=== PATIENT | female | born 1955 ===

== ENCOUNTER 2018-05-18 14:58 | Inpatient (IN) | payer MEDICAID, OTHER ==
--- NOTE | 2018-05-18 15:10 | ED PDOC ---
Arrival/HPI - General Time Seen by Provider: 05/18/18 15:03 Historian: Patient - History of Present Illness Time/Duration: 1-3 hours Symptom Onset: Sudden Symptom Course: Unchanged, Improving Activities at Onset: Rest, Light Context: Home Allergies/Home Meds Allergies/Adverse Reactions: Allergies No Known Allergies Allergy (Verified 05/18/18 15:04)
--- NOTE | 2018-05-18 15:12 | ED PDOC ---
Arrival/HPI - General Chief Complaint: Weakness/Neurological Deficit Time Seen by Provider: 05/18/18 15:03 Historian: Patient - Critical Care Critical Care Minutes: 60 minutes - History of Present Illness Narrative History of Present Illness (Text): 05/18/18 15:11 A 63 year old female, with a past medical history of varicose veins, presents to the emergency department for further evaluation of possible stroke. Patient was seen immediately upon arrival. She presents to the emergency department complaining of inability to move her left leg and arm. She notes that she felt a headache at around 1 PM that she describes as a current running thought the front of her head. She states that once she felt the headache she lost movement in the left arm and leg. The patient states that she tried to stand up after the headache, but fell down. Currently, the patient denies headache. Patient is a tourist from [facility]. The patient denies fevers, chills, dizziness, abdominal pain, nausea, vomiting, diarrhea, back pain, neck pain, chest pain, shortness of breath, dyspnea on exertion, cough or any other complaint. Time/Duration: 1-3 hours Symptom Onset: Sudden Symptom Course: Unchanged Activities at Onset: Rest, Light Context: Home Past Medical History - Provider Review Nursing Documentation Reviewed: Yes - Reproductive Menopause: Yes - Psychiatric Hx Substance Use: No - Surgical History Other/Comment: R foot surgery - Anesthesia Hx Anesthesia Reactions: No Hx Malignant Hyperthermia: No Family/Social History - Physician Review Nursing Documentation Reviewed: Yes Family/Social History: No Known Family HX Smoking Status: Never Smoked Hx Alcohol Use: No Hx Substance Use: No Allergies/Home Meds Allergies/Adverse Reactions: Allergies No Known Allergies Allergy (Verified 05/18/18 15:04) Home Medications: Home Meds Medication Instructions Recorded Confirmed RX: No Known Home Med 05/18/18 05/18/18 Review of Systems - Physician Review All systems were reviewed & negative as marked: Yes - Review of Systems Constitutional: absent: Fevers Respiratory: absent: SOB, Cough Cardiovascular: absent: Chest Pain, GIL Gastrointestinal: absent: Abdominal Pain, Diarrhea, Nausea, Vomiting Musculoskeletal: Other (Loss of movement in left arm and leg). absent: Back Pain, Neck Pain Neurological: Headache. absent: Dizziness Physical Exam - Physical Exam Narrative Physical Exam (Text): 05/18/18 15:09 Gen: VS reviewed, alert, well developed, well nourished, nontoxic, mild distress (every patient is mild distress unless otherwise stated) ENT: normal pharynx Eye: EOMI, PERRL Neck: no JVD, supple, no adenopathy CV: regular rate, regular rhythm, no rubs,no murmur, no gallops, S1, S2, pulses equal and strong Pulm: no distress, clear to auscultation, no wheeze, no rhonchi, breath sounds equal, no rales Abd: soft, nontender, no guarding, no rebound, no rigidity, normal bowel sounds Ext: no edema Skin: good color, no rash, no cyanosis Psych: responds appropriately to questions, normal affect Neuro: oriented x3, CN2-12 intact grossly, complete paraylsis of the left arm and leg, diminished sensation of the left arm and leg Vital Signs Reviewed: Yes Appearance: Positive for: Well-Appearing, Non-Toxic, Comfortable Pain Distress: None Mental Status: Positive for: Alert and Oriented X 3 Finger Stick Blood Glucose: 115 Medical Decision Making ED Course and Treatment: 05/18/18 15:19 Impression: A 63 year old female presents to the emergency department with a complaint of loss of movement of left arm and leg at around 1 pm today. Plan: -- CTA Head/ Neck -- Head CT -- EKG -- Chest X-Ray -- Labs -- IV Fluids -- Reassess and disposition Prior Visits: Notes and results from previous visits were reviewed. Progress Notes: 05/18/18 15:00: Code stroke called. 05/18/18 15:04: Case discussed in detail with Dr. Cross who will come evaluate patient in the emergency department 05/18/18 15:10: Case discussed with Dr. Cross in emergency department who evaluated patient. Pending CT results and will discuss further treatment plan. 05/18/18 16:25: Case discussed in detail with Dr. Jacobo. 05/18/18 16:37: forwarded the CT images and states that pt not a surgical candidate at this time recommends give a dose of Mannitol. Requests a CT in the morning. 05/18/18 16:45; Case discussed in detail with Dr. Penaloza (Hospitalist) who accepts patient to his service. 05/18/18 17:[address] cross, neurologist and he has been able to review the CT images, states there is a suspected underlying mass and would recommends CTA to eval for vascular lesion/mass. He also recommends hypertonic saline. - Critical Care Critical Care Minutes: 60 minutes - Lab Interpretations Lab Results: Lab Results 05/18/18 15:07: POC Glucose (mg/dL) 115 H I have reviewed the lab results: Yes - RAD Interpretation Narrative RAD Interpretations (Text): Chest X-Ray Dictator : Piyush Brumfield MD Report Date : 05/18/2018 15:37:38 IMPRESSION: No active disease. CT- Brain Electronically signed on 2017 3:52:50 PM EDT by: Reji Palma M.D., Certified by [facility], Diagnostic Radiology Impression: Large intracerebral hematoma measuring approximately 2.1 x 5.4 cm at the right parieto- occipital region extending to the high convexity. Hematoma extends to the right lateral ventricle and occipital horn. Blood is seen with the interhemispheric talx. Radiology Orders: 05/18/18 15:06 HEAD W/O (CODE STROKE) [CT] Stat 05/18/18 15:07 CHEST PORTABLE [RAD] Stat 05/18/18 15:08 CTA HEAD/NECK CODE STROKE [CT] Stat - EKG Interpretation EKG Interpretation (Text): 05/18/18 16:33 1514: nsr at 84 bpm, nml qrs, nml axis, nonspecific t wave abn Interpreted by ED Physician: Yes Type: 12 lead EKG - Medication Orders Current Medication Orders: Sodium Chloride (Sodium Chloride 0.9%) 1,000 mls @ 100 mls/hr IV .Q10H [facility] NIHSS Scale ([place]) Time Performed: 15:00 - How Severe is the Stoke Baseline Level of Consciousness: 0=Alert LOC to Questions: 0=Both comments correct LOC to commands: 0=Obeys both correctly Best Gaze: 0=Normal Visual: 0=No visual loss Facial: 0=Normal Motor Arm - Left: 4=No movement Motor Arm - Right: 0=No drift Motor Leg - Left: 4=No movement Motor Leg - Right: 0=No drift Limb Ataxia: 0=Absent Sensory: 2=Severe to total loss Best Language: 0=No aphasia Dysarthia: 0=Normal articulation Extinction & Inattention (Neglect): 0=Normal, no object Score: 10 Risk Level: Mod Stroke Risk - Scribe Statement The provider has reviewed the documentation as recorded by the Oseiibe Irene Love Provider Oseiibe Attestation: All medical record entries made by the Scribe were at my direction and personally dictated by me. I have reviewed the chart and agree that the record accurately reflects my personal performance of the history, physical exam, medical decision making, and the department course for this patient. I have also personally directed, reviewed, and agree with the discharge instructions and disposition Disposition/Present on Arrival - Present on Arrival Any Indicators Present on Arrival: No History of DVT/PE: No History of Uncontrolled Diabetes: No Urinary Catheter: No History of Decub. Ulcer: No History Surgical Site Infection Following: None - Disposition Have Diagnosis and Disposition been Completed?: Yes Diagnosis: Cerebral vascular accident Disposition: HOSPITALIZED Disposition Time: 16:45 Patient Plan: Admission, ICU Patient Problems: Current Active Problems Problem Status Onset Cerebral vascular accident Acute Intracerebral hemorrhage Acute Condition: CRITICAL
[2018-05-18] MEDS ORDERED: Sodium Chloride 0.9% 1,000 ML IV SCH (15:15)
--- NOTE | 2018-05-18 15:40 | RAD ---
Date of service: 05/18/2018 HISTORY: Code Stroke COMPARISON: No prior. FINDINGS: LUNGS: No active pulmonary disease. PLEURA: No significant pleural effusion identified, no pneumothorax apparent. CARDIOVASCULAR: Normal. OSSEOUS STRUCTURES: No significant abnormalities. VISUALIZED UPPER ABDOMEN: Normal. OTHER FINDINGS: None. IMPRESSION: No active disease.
[2018-05-18 15:44] LABS: BASO # 0.02 K/mm3 (0.0-2.0); BASO % 0.2 % (0.0-3.0); GRAN # 9.35 (1.4-6.5); GRAN % 87.9 % (50.0-68.0); HEMOGLOBIN 13.4 g/dL (12.0-16.0); LYMPH % 9.7 % (22.0-35.0); MEAN CORPUSCULAR HGB CONC 34.4 g/dl (31.0-37.0); MEAN PLATELET VOLUME 10.6 fl (7.0-11.0); MONO # 0.2 (0.1-0.6); MONO % 2.2 % (1.0-6.0); RBC 4.47 10^6/uL (3.5-6.1); RED CELL DISTRIBUTION WIDTH 13.1 % (11.5-14.5); WHITE BLOOD COUNT 10.6 10^3/ul (4.5-11.0)
[2018-05-18 15:48] LABS: INR 1.12; PROTHROMBIN TIME 12.8 SECONDS (9.4-12.5)
[2018-05-18 16:02] LABS: BLOOD UREA NITROGEN 14 mg/dL (7-21)
[2018-05-18 16:03] LABS: CALCIUM 9.6 mg/dL (8.4-10.5); GFR NON-AFRICAN AMERICAN > 60
[2018-05-18 16:04] LABS: ALB/GLOB RATIO 1.2 (1.1-1.8); ALBUMIN 4.5 g/dL (3.0-4.8); ALT/SGPT 39 U/L (7-56); AST/SGOT 42 U/L (14-36); HDL CHOLESTEROL 62 mg/dL (29-60); LDL CHOLESTEROL 89 mg/dL (0-129)
[2018-05-18 16:05] LABS: TROPONIN I < 0.01 ng/mL
[2018-05-18] MEDS ORDERED: Mannitol 12.5 gm/50 ml Inj IV ONE (16:39)
[2018-05-18] MEDS ORDERED: Sodium Chloride 3% 500 ML IV SCH ×2 (17:30→21:45)
[2018-05-18] MEDS ORDERED: levETIRAcetam 1000mg/100ml NS 100 ML IV ONE ×2 (17:35→18:00)
--- NOTE | 2018-05-18 17:38 | CP.PCM.CON ---
<Glenn Gifford - Last Filed: 05/18/18 17:53> History of Present Illness - History of Present Illness History of Present Illness: Glenn Gifford DO, PGY-1 ICU Consult Note for Dr. Guo Patient is a 63 year old female with PMH of HTN who presents to ED following a fall. Patient states that since 1400 today she has had left sided weakness. She arose from a chair and her left side completely gave out causing her to fall. She denies any head trauma at that time or any prior head trauma. She denies having a CHEN currently and her main complaint is left sided weakness and nausea. Work up in ED revealed cerebral hemorrhage in the right occipital region with midline shift. She is subsequently admitted to ICU for management of acute intracranial hemorrhage. Review of Systems - Review of Systems Systems not reviewed;Unavailable: Acuity of Condition Past Patient History - Past Social History Smoking Status: Never Smoked - PSYCHIATRIC Hx Substance Use: No - SURGICAL HISTORY Other/Comment: R foot surgery - ANESTHESIA Hx Anesthesia Reactions: No Hx Malignant Hyperthermia: No Meds Allergies/Adverse Reactions: Allergies Allergy/AdvReac Type Severity Reaction Status Date / Time No Known Allergies Allergy Verified 05/18/18 15:04 - Medications Medications: Current Medications Sodium Chloride (Sodium Chloride 0.9%) 1,000 mls @ 100 mls/hr IV .Q10H [facility] Last Admin: 05/18/18 15:48 Dose: 100 mls/hr Levetiracetam (Keppra 500mg Ivpb) 500 mg in 100 mls @ 400 mls/hr IVPB Q12 [facility] Sodium Chloride (Hypertonic Saline 3%) 500 mls @ 30 mls/hr IV .[id number] [facility] Mannitol (Mannitol) 20 gm IV Q6H [facility] Physical Exam - Constitutional Appears: Non-toxic, No Acute Distress - Head Exam Head Exam: ATRAUMATIC - Eye Exam Eye Exam: EOMI - ENT Exam ENT Exam: Mucous Membranes Dry - Neck Exam Neck exam: Positive for: Full Rom - Respiratory Exam Respiratory Exam: Clear to Auscultation Bilateral, NORMAL BREATHING PATTERN. absent: Accessory Muscle Use, Rales, Rhonchi, Wheezes - Cardiovascular Exam Cardiovascular Exam: REGULAR RHYTHM, RRR, +S1, +S2. absent: Diastolic murmur, Gallop, Rubs, Systolic Murmur - GI/Abdominal Exam GI & Abdominal Exam: absent: Distended - Extremities Exam Extremities exam: Negative for: joint swelling, pedal edema - Neurological Exam Neurological exam: Alert, Oriented x3 Additional comments: Motor strength 0/5 LUE and LLE. Motor strength 5/5 RUE and RLE. - Psychiatric Exam Psychiatric exam: Anxious - Skin Skin Exam: Dry, Intact, Warm Results - Vital Signs Recent Vital Signs: Last Vital Signs Temp 98.4 F 05/18/18 16:23 Pulse 84 05/18/18 16:23 Resp 16 05/18/18 16:23 BP 140/71 05/18/18 16:23 Pulse Ox 95 05/18/18 16:23 - Labs Result Diagrams: 05/18/18 15:15 05/18/18 15:15 Labs: Laboratory Results - last 24 hr 05/18/18 05/18/18 05/18/18 15:07 15:15 15:15 WBC 10.6 RBC 4.47 Hgb 13.4 Hct 38.9 MCV 87.0 MCH 30.0 MCHC 34.4 RDW 13.1 Plt Count 331 MPV 10.6 Gran % 87.9 H Lymph % (Auto) 9.7 L [place] % (Auto) 2.2 Eos % (Auto) 0.0 L Baso % (Auto) 0.2 Gran # 9.35 H Lymph # (Auto) 1.0 L [place] # (Auto) 0.2 Eos # (Auto) 0.0 Baso # (Auto) 0.02 PT 12.8 H INR 1.12 APTT 29.0 Sodium Potassium Chloride Carbon Dioxide Anion Gap BUN Creatinine Est GFR ( Amer) Est GFR (Non-Af Amer) POC Glucose (mg/dL) 115 H Random Glucose Calcium Total Bilirubin AST ALT Alkaline Phosphatase Troponin I Total Protein Albumin Globulin Albumin/Globulin Ratio Triglycerides Cholesterol LDL Cholesterol Direct HDL Cholesterol 05/18/18 15:15 WBC RBC Hgb Hct MCV MCH MCHC RDW Plt Count MPV Gran % Lymph % (Auto) [place] % (Auto) Eos % (Auto) Baso % (Auto) Gran # Lymph # (Auto) [place] # (Auto) Eos # (Auto) Baso # (Auto) PT INR APTT Sodium 138 Potassium 3.9 Chloride 103 Carbon Dioxide 26 Anion Gap 13 BUN 14 Creatinine 0.6 L Est GFR ( Amer) > 60 Est GFR (Non-Af Amer) > 60 POC Glucose (mg/dL) Random Glucose 128 H Calcium 9.6 Total Bilirubin 0.4 AST 42 H ALT 39 Alkaline Phosphatase 115 Troponin I < 0.01 Total Protein 8.2 Albumin 4.5 Globulin 3.8 Albumin/Globulin Ratio 1.2 Triglycerides 84 Cholesterol 191 LDL Cholesterol Direct 89 HDL Cholesterol 62 H Assessment & Plan - Assessment and Plan (Free Text) Assessment: 63 yo F with L sided weakness admitted to ICU for management of R-sided occipital acute intracranial hemorrhage. Plan: Neuro: Currently A/o x 3 Denies CEHN or prior trauma Intracranial hemorrhage identified on head CT Mannitol 25 mg given in ED 3% 200 cc bolus over 2 hours Start 3% NaCl at 30 cc/hr Q1 neuro checks BMP Q6h Repeat head CT tomorrow AM Keppra 500 mg BID for seizure ppx Seizure pxns Cardio: Patient currently HD stable, normotensive, RRR Continue to monitor for s/sx of HD compromise Echo pending Pulm: No signs of acute respiratory distress CTA b/l CXR without acute findings Maintain O2 saturation>95%. O2 NC PRN GI: NPO diet Aspiration pxns /Nephro: Per intracranial hemorrhage protocol, attain Na level of 150 with 3% NaCl at 30 cc/hr BUN/Cr stable Strict I & O Monitor UOP ID: -Afebrile, no leukocytosis -Monitor for signs and symptoms of infection Heme/Onc: -H/H stable at -No signs of HD compromise -Continue monitoring H/H Case and plan reviewed and discussed with my attending Dr. Sari Gifford, DO IM Resident PGY-1 <Manuel Guo - Last Filed: 05/18/18 18:02> Meds - Medications Medications: Current Medications Sodium Chloride (Hypertonic Saline 3%) 500 mls @ 30 mls/hr IV .[id number] [facility] Sodium Chloride (Hypertonic Saline 3%) 250 mls @ 100 mls/hr IV .Q2H30M [facility] Levetiracetam (Keppra 500mg Ivpb) 500 mg in 100 mls @ 400 mls/hr IVPB Q12 [facility] Pantoprazole Sodium (Protonix Inj) 40 mg IVP DAILY [facility] Results - Vital Signs Recent Vital Signs: Last Vital Signs Temp 98.4 F 05/18/18 16:23 Pulse 84 05/18/18 16:23 Resp 16 05/18/18 16:23 BP 140/71 05/18/18 16:23 Pulse Ox 95 05/18/18 16:23 - Labs Result Diagrams: 05/18/18 15:15 05/18/18 15:15 Labs: Laboratory Results - last 24 hr 05/18/18 05/18/18 05/18/18 15:07 15:15 15:15 WBC 10.6 RBC 4.47 Hgb 13.4 Hct 38.9 MCV 87.0 MCH 30.0 MCHC 34.4 RDW 13.1 Plt Count 331 MPV 10.6 Gran % 87.9 H Lymph % (Auto) 9.7 L [place] % (Auto) 2.2 Eos % (Auto) 0.0 L Baso % (Auto) 0.2 Gran # 9.35 H Lymph # (Auto) 1.0 L [place] # (Auto) 0.2 Eos # (Auto) 0.0 Baso # (Auto) 0.02 PT 12.8 H INR 1.12 APTT 29.0 Sodium Potassium Chloride Carbon Dioxide Anion Gap BUN Creatinine Est GFR ( Amer) Est GFR (Non-Af Amer) POC Glucose (mg/dL) 115 H Random Glucose Calcium Total Bilirubin AST ALT Alkaline Phosphatase Troponin I Total Protein Albumin Globulin Albumin/Globulin Ratio Triglycerides Cholesterol LDL Cholesterol Direct HDL Cholesterol 05/18/18 15:15 WBC RBC Hgb Hct MCV MCH MCHC RDW Plt Count MPV Gran % Lymph % (Auto) [place] % (Auto) Eos % (Auto) Baso % (Auto) Gran # Lymph # (Auto) [place] # (Auto) Eos # (Auto) Baso # (Auto) PT INR APTT Sodium 138 Potassium 3.9 Chloride 103 Carbon Dioxide 26 Anion Gap 13 BUN 14 Creatinine 0.6 L Est GFR ( Amer) > 60 Est GFR (Non-Af Amer) > 60 POC Glucose (mg/dL) Random Glucose 128 H Calcium 9.6 Total Bilirubin 0.4 AST 42 H ALT 39 Alkaline Phosphatase 115 Troponin I < 0.01 Total Protein 8.2 Albumin 4.5 Globulin 3.8 Albumin/Globulin Ratio 1.2 Triglycerides 84 Cholesterol 191 LDL Cholesterol Direct 89 HDL Cholesterol 62 H Assessment & Plan - Assessment and Plan (Free Text) Plan: Patient seen and examined on rounds with resident, agree with note with following additions/exceptions: Patient is 63yo female with PMHx of HTN admitted with [facility]. Currently afebrile, BP stable comfortable in NAD, AAOx3, protecting airway On exam RUE/RLE 12/15, LUE/LLL 08/17 Neurosurgery consulted, no intervention at this time Given Mannitol in the ER IPH HTN Recommend: - supp o2 as needed, duonebs PRN - panculture, UCx, BCx, Check Procal - BP control goal SBP 140-160 - q1hr neuro checks - 3% Na bolus 250cc x 1, then 30cc/hr, goal Na 145-150 - follow up neurology, neurosurgery - NPO - speech swallow eval - ECHO - MRI/MRA brain - GI ppx - DVT ppx, SCDs - Admit to MICU Critical care time 30 minutes
--- NOTE | 2018-05-18 17:41 | CP.PCM.CON ---
History of Present Illness - History of Present Illness History of Present Illness: Vascular Neurology Consultation Note: Mrs. Cruz is a 63-year-old woman with a past medical history of arthritis, on NSAIDs, who states that at around 1 PM today, she had the sudden onset of a headache on the right side of her forehead and subsequently developed left arm and leg weakness and decreased sensation. She did not have any facial weakness or numbness. She was brought to the ED, and I examined her before the CT scan of the head was done. Her diastolic BP was well over 120 mm Hg, and this was concerning for a hemorrhage; however, her symptoms were not typical. She obtained a non-contrast CT scan of the head and it showed an atypical bleed in the high right frontal lobe extending down with surrounding vasogenic edema. The area of hemorrhage appeared heterogeneous. She had several other areas of dural calcifications. There was some midline shift, but clinically the patient was unchanged. Review of Systems - Review of Systems All systems: reviewed and no additional remarkable complaints except Past Patient History - Past Social History Smoking Status: Never Smoked - PSYCHIATRIC Hx Substance Use: No - SURGICAL HISTORY Other/Comment: R foot surgery - ANESTHESIA Hx Anesthesia Reactions: No Hx Malignant Hyperthermia: No Meds Allergies/Adverse Reactions: Allergies Allergy/AdvReac Type Severity Reaction Status Date / Time No Known Allergies Allergy Verified 05/18/18 15:04 - Medications Medications: Current Medications Sodium Chloride (Sodium Chloride 0.9%) 1,000 mls @ 100 mls/hr IV .Q10H [facility] Last Admin: 05/18/18 15:48 Dose: 100 mls/hr Levetiracetam (Keppra 500mg Ivpb) 500 mg in 100 mls @ 400 mls/hr IVPB Q12 [facility] Sodium Chloride (Hypertonic Saline 3%) 500 mls @ 30 mls/hr IV .[id number] [facility] Mannitol (Mannitol) 20 gm IV Q6H [facility] Physical Exam - Constitutional Appears: Well - Head Exam Head Exam: ATRAUMATIC, NORMAL INSPECTION, NORMOCEPHALIC - Eye Exam Eye Exam: EOMI, Normal appearance, PERRL - ENT Exam ENT Exam: Mucous Membranes Moist, Normal Exam - Neck Exam Neck exam: Positive for: Normal Inspection - Respiratory Exam Respiratory Exam: Clear to Auscultation Bilateral, NORMAL BREATHING PATTERN - Cardiovascular Exam Cardiovascular Exam: REGULAR RHYTHM - GI/Abdominal Exam GI & Abdominal Exam: Normal Bowel Sounds, Soft. absent: Tenderness - Back Exam Back exam: NORMAL INSPECTION - Neurological Exam Additional comments: AAOX3, CN 2-12 intact, no facial droop or numbness, right upper and lower ex tremity full strength and sensation was intact, left side hemiplegia and hemianesthesia with 0/5 strength proximally and distally. Coordination was intact on the right. Reflexes were muted on the left. Results - Vital Signs Recent Vital Signs: Last Vital Signs Temp 98.4 F 05/18/18 16:23 Pulse 84 05/18/18 16:23 Resp 16 05/18/18 16:23 BP 140/71 05/18/18 16:23 Pulse Ox 95 05/18/18 16:23 - Labs Result Diagrams: 05/18/18 15:15 05/18/18 15:15 Labs: Laboratory Results - last 24 hr 05/18/18 05/18/18 05/18/18 15:07 15:15 15:15 WBC 10.6 RBC 4.47 Hgb 13.4 Hct 38.9 MCV 87.0 MCH 30.0 MCHC 34.4 RDW 13.1 Plt Count 331 MPV 10.6 Gran % 87.9 H Lymph % (Auto) 9.7 L [place] % (Auto) 2.2 Eos % (Auto) 0.0 L Baso % (Auto) 0.2 Gran # 9.35 H Lymph # (Auto) 1.0 L [place] # (Auto) 0.2 Eos # (Auto) 0.0 Baso # (Auto) 0.02 PT 12.8 H INR 1.12 APTT 29.0 Sodium Potassium Chloride Carbon Dioxide Anion Gap BUN Creatinine Est GFR ( Amer) Est GFR (Non-Af Amer) POC Glucose (mg/dL) 115 H Random Glucose Calcium Total Bilirubin AST ALT Alkaline Phosphatase Troponin I Total Protein Albumin Globulin Albumin/Globulin Ratio Triglycerides Cholesterol LDL Cholesterol Direct HDL Cholesterol 05/18/18 15:15 WBC RBC Hgb Hct MCV MCH MCHC RDW Plt Count MPV Gran % Lymph % (Auto) [place] % (Auto) Eos % (Auto) Baso % (Auto) Gran # Lymph # (Auto) [place] # (Auto) Eos # (Auto) Baso # (Auto) PT INR APTT Sodium 138 Potassium 3.9 Chloride 103 Carbon Dioxide 26 Anion Gap 13 BUN 14 Creatinine 0.6 L Est GFR ( Amer) > 60 Est GFR (Non-Af Amer) > 60 POC Glucose (mg/dL) Random Glucose 128 H Calcium 9.6 Total Bilirubin 0.4 AST 42 H ALT 39 Alkaline Phosphatase 115 Troponin I < 0.01 Total Protein 8.2 Albumin 4.5 Globulin 3.8 Albumin/Globulin Ratio 1.2 Triglycerides 84 Cholesterol 191 LDL Cholesterol Direct 89 HDL Cholesterol 62 H Assessment & Plan (1) Intracerebral hemorrhage Assessment and Plan: This could be secondary to either an underlying mass, or AVM. The location is not typical of hypertensive bleeds. I recommend the followin. ICU 2. Lower BP with Cardene drip to maintain BP in 120/60 - 150/95 range. 3. Bolus 3% hypertonic saline 250 mL and continue at 30 mL/hr for goal of serum sodium 140-145 and serum osm of less than 320 for the first 12-24 hours. Will adjust parameters after based on clinical and neuroimaging. 4. MRI brain with and without contrast 5. CTA of the head/neck STAT 6. Keep head of bed elevated above 35-40 degrees 7. Neurosurgery consult 8. Q 1 hour neuro-checks 9. Case management consult Thank you. Status: Acute
[2018-05-18] MEDS ORDERED: Sodium Chloride 3% 250 ML IV SCH (18:00)
--- NOTE | 2018-05-18 18:13 | CP.PCM.HP ---
<Cheri Smith - Last Filed: 05/18/18 20:37> History of Present Illness - History of Present Illness History of Present Illness: PGY-1 Cheri Smith D.O. H&P for Dr. Penaloza's service: Amber Cruz is a 63 yo female visiting from [facility] with a PMH of only varicose veins who presented to the ED with inability to move or feel her L arm and leg. Patient states that she attempted to stand up around 1PM this afternoon when she all of a sudden felt a shock-like headache and L-sided weakness causing her to fall. She denies LOC or head trauma- she was able to brace herself with her right arm. Patient states that she took Tylenol for the headache prior to coming to the ED, and now her pain is resolved. Patient is still unable to move or feel her L arm or leg. Additionally, she is complaining of intermittent involuntary movements of her R leg and arm. Patient states that she see her primary care doctor regularly in [facility]. She denies history of CHEN, stroke, or seizure. She presently denies any pain, fevers, chills, SOB, bowel/bladder incontinence. PMH: varicose veins, R ankle surgery 4 years ago Meds: Daflon 500 mg PO daily (venotrope) All: NKA FH: father and aunt- CVA; HTN SH: lives in [facility], aunt, cousin, and bf in [facility] socially denies tobacco, illicit drug use PMD: in [facility] Present on Admission - Present on Admission Any Indicators Present on Admission: No History of DVT/PE: No History of Uncontrolled Diabetes: No Urinary Catheter: No Decubitus Ulcer Present: No History Surgical Site Infection Following: None Review of Systems - Constitutional Constitutional: Headache. absent: Chills, Fatigue, Fever - EENT Eyes: absent: Blurred Vision, Change in Vision, Diplopia, Loss of Peripheral Vision, Pain Ears: absent: Decreased Hearing, Tinnitus Nose/Mouth/Throat: absent: Nasal Congestion, Sore Throat - Cardiovascular Cardiovascular: absent: Chest Pain, Diaphoresis, Dyspnea, Palpitations - Respiratory Respiratory: absent: Cough, Dyspnea - Gastrointestinal Gastrointestinal: absent: Abdominal Pain, Constipation, Diarrhea, Heartburn, Nausea, Vomiting - Genitourinary Genitourinary: absent: Dysuria, Hematuria - Reproductive: Female Reproductive:Female: Post Menopausal - Menstruation Menstruation: Post Menopausal - Musculoskeletal Musculoskeletal: As Per HPI, Numbness, Tingling. absent: Atrophy, Back Pain - Integumentary Integumentary: absent: Lesions - Neurological Neurological: As Per HPI, Focal Weakness, Headaches, Paresthesias, Sensory Deficit, Tingling. absent: Convulsions, Dizziness, Loss of Vision, Syncope, Tremor, Vertigo - Psychiatric Psychiatric: absent: Anxiety, Depression - Endocrine Endocrine: absent: Fatigue, Palpitations - Hematologic/Lymphatic Hematologic: absent: Easy Bleeding, Easy Bruising, Lymphadenopathy Past Patient History - Tetanus Immunizations Tetanus Immunization: Unknown - Past Medical History & Family History Past Medical History?: Yes Pertinent Family History: father and aunt- CVA many family members with HTN - Past Social History Smoking Status: Never Smoked Chewing Tobacco Use: No Cigar Use: No Alcohol: Social Drugs: Denies - PSYCHIATRIC Hx Substance Use: No - SURGICAL HISTORY Other/Comment: R foot surgery - ANESTHESIA Hx Anesthesia Reactions: No Hx Malignant Hyperthermia: No Meds Allergies/Adverse Reactions: Allergies Allergy/AdvReac Type Severity Reaction Status Date / Time No Known Allergies Allergy Verified 05/18/18 15:04 Physical Exam - Head Exam Head Exam: ATRAUMATIC, NORMAL INSPECTION - Eye Exam Eye Exam: EOMI, Normal appearance, PERRL - ENT Exam ENT Exam: Mucous Membranes Moist, Normal Exam - Neck Exam Neck exam: Positive for: Normal Inspection. Negative for: Tenderness - Respiratory Exam Respiratory Exam: Clear to Auscultation Bilateral, NORMAL BREATHING PATTERN. absent: Respiratory Distress - Cardiovascular Exam Cardiovascular Exam: REGULAR RHYTHM, +S1, +S2. absent: Bradycardia, Tachycardia - GI/Abdominal Exam GI & Abdominal Exam: Normal Bowel Sounds, Soft. absent: Tenderness - Rectal Exam Rectal Exam: absent: Deferred - Extremities Exam Extremities exam: Positive for: normal inspection, pedal pulses present. Negative for: pedal edema, tenderness - Back Exam Back exam: NORMAL INSPECTION. absent: tenderness - Neurological Exam Neurological exam: Alert, CN II-XII Intact, Motor Sensory Deficit (LUE, LLE 0/5 strength, no sensation), Oriented x3 Additional comments: no facial asymmetry, no vision changes - Psychiatric Exam Psychiatric exam: Normal Affect, Normal Mood - Skin Skin Exam: Dry, Intact, Normal Color, Warm Results - Vital Signs Recent Vital Signs: Last Vital Signs Temp 98.6 F 05/18/18 18:00 Pulse 84 05/18/18 18:00 Resp 14 05/18/18 18:00 BP 140/76 05/18/18 18:00 Pulse Ox 96 05/18/18 18:00 - Labs Result Diagrams: 05/18/18 15:15 05/18/18 15:15 Labs: Laboratory Results - last 24 hr 05/18/18 05/18/18 05/18/18 15:07 15:15 15:15 WBC 10.6 RBC 4.47 Hgb 13.4 Hct 38.9 MCV 87.0 MCH 30.0 MCHC 34.4 RDW 13.1 Plt Count 331 MPV 10.6 Gran % 87.9 H Lymph % (Auto) 9.7 L [place] % (Auto) 2.2 Eos % (Auto) 0.0 L Baso % (Auto) 0.2 Gran # 9.35 H Lymph # (Auto) 1.0 L [place] # (Auto) 0.2 Eos # (Auto) 0.0 Baso # (Auto) 0.02 PT 12.8 H INR 1.12 APTT 29.0 Sodium Potassium Chloride Carbon Dioxide Anion Gap BUN Creatinine Est GFR ( Amer) Est GFR (Non-Af Amer) POC Glucose (mg/dL) 115 H Random Glucose Calcium Total Bilirubin AST ALT Alkaline Phosphatase Troponin I Total Protein Albumin Globulin Albumin/Globulin Ratio Triglycerides Cholesterol LDL Cholesterol Direct HDL Cholesterol 05/18/18 15:15 WBC RBC Hgb Hct MCV MCH MCHC RDW Plt Count MPV Gran % Lymph % (Auto) [place] % (Auto) Eos % (Auto) Baso % (Auto) Gran # Lymph # (Auto) [place] # (Auto) Eos # (Auto) Baso # (Auto) PT INR APTT Sodium 138 Potassium 3.9 Chloride 103 Carbon Dioxide 26 Anion Gap 13 BUN 14 Creatinine 0.6 L Est GFR ( Amer) > 60 Est GFR (Non-Af Amer) > 60 POC Glucose (mg/dL) Random Glucose 128 H Calcium 9.6 Total Bilirubin 0.4 AST 42 H ALT 39 Alkaline Phosphatase 115 Troponin I < 0.01 Total Protein 8.2 Albumin 4.5 Globulin 3.8 Albumin/Globulin Ratio 1.2 Triglycerides 84 Cholesterol 191 LDL Cholesterol Direct 89 HDL Cholesterol 62 H Assessment & Plan - Assessment and Plan (Free Text) Assessment: Patient is a 63 yo female from [facility] who presented with sudden onset CHEN and L sided paralysis and paresthesia. She was found to have a large intracranial hemorrhage on CT. She is presently being managed in the ICU. Plan: Hemorrhagic stroke - CT head: Large intracerebral hematoma measuring approximately 2.1 x 5.4 cm at the right parieto- occipital region extending to the high convexity. Hematoma extends to the right lateral ventricle and occipital horn. Blood is seen with the interhemispheric talx. - CTA head and neck pending - Repeat CT head in AM - MRI brain w/ and w/o contrast in AM - Echo pending - Keep head of bed elevated 30-45 degrees - Neuro checks - Seizure precautions - Maintain BP 120-140/70-90 - Vitals R24cdgb - Mannitol 25 g x1 - 3% saline @ 30 - Serum osm Q6H- goal 300-310 - BMP Q6H - Accuchecks Q6H - Zofran 4 mg IV Q4H PRN - Tylenol 650 mg PO Q6H PRN - Keppra 1 g IV load, 500 mg IV BID - Neurology consulted (Tay) - ICU consulted (Sari) IVF: 3% saline @ 30 Diet: NPO except meds- swallow eval GI ppx: Protonix 40 mg IV daily VTE ppx: SCDs Code status: full code- medical proxys Aunt Dominique King, Cousin Ina ([phone]) Case was discussed with attending, Dr. Penaloza. <Noelle Penaloza - Last Filed: 05/19/18 17:41> Results - Vital Signs Recent Vital Signs: Last Vital Signs Temp 98.3 F 05/19/18 07:00 Pulse 67 05/19/18 16:00 Resp 16 05/19/18 15:00 BP 135/83 05/19/18 15:00 Pulse Ox 99 05/19/18 15:00 - Labs Result Diagrams: 05/19/18 04:00 05/19/18 15:46 Labs: Laboratory Results - last 24 hr 05/18/18 05/18/18 05/18/18 15:15 15:30 22:52 WBC RBC Hgb Hct MCV MCH MCHC RDW Plt Count MPV Gran % Lymph % (Auto) [place] % (Auto) Eos % (Auto) Baso % (Auto) Gran # Lymph # (Auto) [place] # (Auto) Eos # (Auto) Baso # (Auto) Sodium 141 Potassium 3.8 Chloride 108 H Carbon Dioxide 24 Anion Gap 13 BUN 10 Creatinine 0.6 L Est GFR ( Amer) > 60 Est GFR (Non-Af Amer) > 60 POC Glucose (mg/dL) Random Glucose 127 H Serum Osmolality 290 Calcium 9.4 Blood Type A POSITIVE Blood Type Confirm Antibody Screen Negative BBK History Checked No verified bt 05/18/18 05/19/18 05/19/18 23:30 00:30 04:00 WBC RBC Hgb Hct MCV MCH MCHC RDW Plt Count MPV Gran % Lymph % (Auto) [place] % (Auto) Eos % (Auto) Baso % (Auto) Gran # Lymph # (Auto) [place] # (Auto) Eos # (Auto) Baso # (Auto) Sodium 143 Potassium 3.6 Chloride 109 H Carbon Dioxide 26 Anion Gap 12 BUN 9 Creatinine 0.6 L Est GFR ( Amer) > 60 Est GFR (Non-Af Amer) > 60 POC Glucose (mg/dL) Random Glucose 117 H Serum Osmolality 297 Calcium 9.6 Blood Type Blood Type Confirm A POSITIVE Antibody Screen BBK History Checked 05/19/18 05/19/18 05/19/18 04:00 06:35 10:17 WBC 9.6 RBC 4.33 Hgb 12.8 Hct 37.7 MCV 87.1 MCH 29.6 MCHC 34.0 RDW 13.1 Plt Count 328 MPV 10.3 Gran % 74.2 H Lymph % (Auto) 19.6 L [place] % (Auto) 6.1 H Eos % (Auto) 0.0 L Baso % (Auto) 0.1 Gran # 7.13 H Lymph # (Auto) 1.9 [place] # (Auto) 0.6 Eos # (Auto) 0.0 Baso # (Auto) 0.01 Sodium Potassium Chloride Carbon Dioxide Anion Gap BUN Creatinine Est GFR ( Amer) Est GFR (Non-Af Amer) POC Glucose (mg/dL) 106 Random Glucose Serum Osmolality 296 Calcium Blood Type Blood Type Confirm Antibody Screen BBK History Checked 05/19/18 05/19/18 05/19/18 12:00 12:04 15:46 WBC RBC Hgb Hct MCV MCH MCHC RDW Plt Count MPV Gran % Lymph % (Auto) [place] % (Auto) Eos % (Auto) Baso % (Auto) Gran # Lymph # (Auto) [place] # (Auto) Eos # (Auto) Baso # (Auto) Sodium 141 142 Potassium 3.9 3.7 Chloride 105 108 H Carbon Dioxide 23 24 Anion Gap 17 13 BUN 8 9 Creatinine 0.5 L 0.5 L Est GFR ( Amer) > 60 > 60 Est GFR (Non-Af Amer) > 60 > 60 POC Glucose (mg/dL) 114 H Random Glucose 123 H 118 H Serum Osmolality Calcium 8.9 9.3 Blood Type Blood Type Confirm Antibody Screen BBK History Checked Attending/Attestation - Attestation I have personally seen and examined this patient.: Yes I have fully participated in the care of the patient.: Yes I have reviewed all pertinent clinical information: Yes Notes (Text): 05/19/18 17:38 Medical record note made by the resident after discussion with my direction and input after the patient was personally seen and examined by me. I have reviewed the chart and agree that the record accurately reflects by personal performance of the history, physical exam, data review, and medical decision-making, in the course for the patient. I have also personally directed the plan of care. 63 yrs old female with no PMH was admitted yesterday with headache and left sided weakness, found to have atypical bleed in the high right frontal lobe extending down with surrounding vasogenic edema. The area of hemorrhage appeared heterogeneous. She had several other areas of dural calcifications. There was some midline shift. Patient has been started on hypertonic saline after Mannitol We will start patient on Keppra We will repeat CT head in the morning. Neuro surgery and Neurology are consulted. Case was discussed with ICU attending. Prognosis is guarded Management plan was discussed in detail with patient. Education was provided
[2018-05-18] MEDS ORDERED: Mannitol 12.5 gm/50 ml Inj IV SCH (22:00)
[2018-05-18] MEDS ORDERED: levETIRAcetam 500mg IVPB 500 MG/100 ML BAG IVPB SCH (22:00)
[2018-05-18 22:56] VITALS: BMI 27.7
[2018-05-18] MEDS ORDERED: Influenza Vaccine 60 mcg/0.5 mL SYR (4YR UP) IM ONE (22:56)
[2018-05-18] MEDS ORDERED: Pneumococcal 23-Valent Vaccine IM ONE (22:56)
[2018-05-18 23:28] LABS: BLOOD UREA NITROGEN 10 mg/dL (7-21); CALCIUM 9.4 mg/dL (8.4-10.5); GFR NON-AFRICAN AMERICAN > 60
[2018-05-19 04:06] LABS: BASO # 0.01 K/mm3 (0.0-2.0); BASO % 0.1 % (0.0-3.0); GRAN # 7.13 (1.4-6.5); GRAN % 74.2 % (50.0-68.0); HEMOGLOBIN 12.8 g/dL (12.0-16.0); LYMPH # 1.9 (1.2-3.4); LYMPH % 19.6 % (22.0-35.0); MEAN CELL VOLUME 87.1 fl (80.0-105.0); MEAN CORPUSCULAR HEMOGLOBIN 29.6 pg (25.0-35.0); MEAN PLATELET VOLUME 10.3 fl (7.0-11.0); MONO # 0.6 (0.1-0.6); MONO % 6.1 % (1.0-6.0); RBC 4.33 10^6/uL (3.5-6.1); RED CELL DISTRIBUTION WIDTH 13.1 % (11.5-14.5); WHITE BLOOD COUNT 9.6 10^3/ul (4.5-11.0)
[2018-05-19 04:16] LABS: BLOOD UREA NITROGEN 9 mg/dL (7-21); CALCIUM 9.6 mg/dL (8.4-10.5); GFR NON-AFRICAN AMERICAN > 60
[2018-05-19] MEDS: levETIRAcetam 500mg IVPB 500 MG/100 ML BAG IVPB SCH ×2 (06:26→17:27)
[2018-05-19] MEDS ORDERED: Iodixanol 320 MG/ML 100 ML BOTTLE IV ONE (08:01)
--- NOTE | 2018-05-19 09:23 | CT ---
Date of service: 05/18/2018 PROCEDURE: CT HEAD WITHOUT CONTRAST. HISTORY: CVA COMPARISON: None available. TECHNIQUE: Axial computed tomography images were obtained through the head/brain without intravenous contrast. Radiation dose: Total exam DLP = 975 mGy-cm. This CT exam was performed using one or more of the following dose reduction techniques: Automated exposure control, adjustment of the mA and/or kV according to patient size, and/or use of iterative reconstruction technique. FINDINGS: HEMORRHAGE: There is a large intracerebral hematoma measuring 2.1 x 5.4 cm in the right parieto-occipital lobe. This compresses the right occipital horn. There is no intraventricular hemorrhage. Blood is also seen along side the falx. BRAIN: There is mass effect with compression of the right lateral ventricle and effacement of sulci. There is no significant midline shift no atrophy or chronic microvascular ischemic changes. VENTRICLES: Unremarkable. No hydrocephalus. CALVARIUM: Unremarkable. PARANASAL SINUSES: Unremarkable as visualized. No significant inflammatory changes. MASTOID AIR CELLS: Unremarkable as visualized. No inflammatory changes. OTHER FINDINGS: The report concurs with the preliminary report IMPRESSION: There is a large intracerebral hematoma measuring 2.1 x 5.4 cm in the right parieto-occipital lobe. This compresses the right occipital horn. There is no intraventricular hemorrhage. Blood is also seen along side the falx.
--- NOTE | 2018-05-19 10:09 | CP.PCM.CON ---
History of Present Illness - History of Present Illness History of Present Illness: dictated hemiparesis, sensation improved,fully awake and alert CT this AM stable REc cont HOB elevation,dehydration mobilize PT,OT MRI/MRA in 2-3 weeks when clot dissipates Past Patient History - Tetanus Immunizations Tetanus Immunization: Unknown - Past Medical History & Family History Past Medical History?: Yes - Past Social History Smoking Status: Never Smoked - CARDIAC Hx Cardiac Disorders: Yes (varicose veins) Hx Hypertension: Yes - PULMONARY Hx Respiratory Disorders: No - NEUROLOGICAL Hx Neurological Disorder: Yes HX Cerebrovascular Accident: Yes (today 05/18/18) Other/Comment: left side paralysis - HEENT Hx HEENT Problems: Yes (eyeglasses) - RENAL Hx Chronic Kidney Disease: No - ENDOCRINE/METABOLIC Hx Endocrine Disorders: No - HEMATOLOGICAL/ONCOLOGICAL Hx Blood Disorders: No - INTEGUMENTARY Hx Dermatological Problems: No - MUSCULOSKELETAL/RHEUMATOLOGICAL Hx Musculoskeletal Disorders: Yes Hx Falls: Yes (fell today when left side gave out) Other/Comment: left side paralysis today cva 05/18/18 - GASTROINTESTINAL Hx Gastrointestinal Disorders: No - GENITOURINARY/GYNECOLOGICAL Hx Genitourinary Disorders: No - PSYCHIATRIC Hx Substance Use: No - SURGICAL HISTORY Other/Comment: R foot surgery - ANESTHESIA Hx Anesthesia Reactions: No Hx Malignant Hyperthermia: No Meds Allergies/Adverse Reactions: Allergies Allergy/AdvReac Type Severity Reaction Status Date / Time No Known Allergies Allergy Verified 05/18/18 15:04 - Medications Medications: Current Medications Acetaminophen (Tylenol 325mg Tab) 650 mg PO Q4 PRN PRN Reason: Pain, Mild (1-3) Levetiracetam (Keppra 500mg Ivpb) 500 mg in 100 mls @ 400 mls/hr IVPB 0600,1800 [facility] Last Admin: 05/19/18 06:26 Dose: 400 mls/hr Sodium Chloride (Hypertonic Saline 3%) 500 mls @ 30 mls/hr IV .[id number] [facility] Last Admin: 05/18/18 22:43 Dose: 30 mls/hr Acetaminophen (Ofirmev) 1,000 mg in 100 mls @ 400 mls/hr IVPB Q6H PRN PRN Reason: Headache Stop: 05/20/18 22:41 Ondansetron HCl (Zofran Inj) 4 mg IVP Q4H PRN PRN Reason: Nausea/Vomiting Last Admin: 05/18/18 20:09 Dose: 4 mg Pantoprazole Sodium (Protonix Inj) 40 mg IVP DAILY [facility] Last Admin: 05/18/18 20:11 Dose: 40 mg Results - Vital Signs Recent Vital Signs: Last Vital Signs Temp 98.6 F 05/18/18 18:22 Pulse 82 05/19/18 09:20 Resp 24 05/19/18 09:20 BP 137/78 05/19/18 09:00 Pulse Ox 98 05/19/18 09:20 - Labs Result Diagrams: 05/19/18 04:00 05/19/18 04:00 Labs: Laboratory Results - last 24 hr 05/18/18 05/18/18 05/18/18 15:07 15:15 15:15 WBC 10.6 RBC 4.47 Hgb 13.4 Hct 38.9 MCV 87.0 MCH 30.0 MCHC 34.4 RDW 13.1 Plt Count 331 MPV 10.6 Gran % 87.9 H Lymph % (Auto) 9.7 L [place] % (Auto) 2.2 Eos % (Auto) 0.0 L Baso % (Auto) 0.2 Gran # 9.35 H Lymph # (Auto) 1.0 L [place] # (Auto) 0.2 Eos # (Auto) 0.0 Baso # (Auto) 0.02 PT 12.8 H INR 1.12 APTT 29.0 Sodium Potassium Chloride Carbon Dioxide Anion Gap BUN Creatinine Est GFR ( Amer) Est GFR (Non-Af Amer) POC Glucose (mg/dL) 115 H Random Glucose Serum Osmolality Calcium Total Bilirubin AST ALT Alkaline Phosphatase Troponin I Total Protein Albumin Globulin Albumin/Globulin Ratio Triglycerides Cholesterol LDL Cholesterol Direct HDL Cholesterol Blood Type Blood Type Confirm Antibody Screen BBK History Checked 05/18/18 05/18/18 05/18/18 15:15 15:15 15:30 WBC RBC Hgb Hct MCV MCH MCHC RDW Plt Count MPV Gran % Lymph % (Auto) [place] % (Auto) Eos % (Auto) Baso % (Auto) Gran # Lymph # (Auto) [place] # (Auto) Eos # (Auto) Baso # (Auto) PT INR APTT Sodium 138 Potassium 3.9 Chloride 103 Carbon Dioxide 26 Anion Gap 13 BUN 14 Creatinine 0.6 L Est GFR ( Amer) > 60 Est GFR (Non-Af Amer) > 60 POC Glucose (mg/dL) Random Glucose 128 H Serum Osmolality 290 Calcium 9.6 Total Bilirubin 0.4 AST 42 H ALT 39 Alkaline Phosphatase 115 Troponin I < 0.01 Total Protein 8.2 Albumin 4.5 Globulin 3.8 Albumin/Globulin Ratio 1.2 Triglycerides 84 Cholesterol 191 LDL Cholesterol Direct 89 HDL Cholesterol 62 H Blood Type A POSITIVE Blood Type Confirm Antibody Screen Negative BBK History Checked No verified bt 05/18/18 05/18/18 05/19/18 22:52 23:30 00:30 WBC RBC Hgb Hct MCV MCH MCHC RDW Plt Count MPV Gran % Lymph % (Auto) [place] % (Auto) Eos % (Auto) Baso % (Auto) Gran # Lymph # (Auto) [place] # (Auto) Eos # (Auto) Baso # (Auto) PT INR APTT Sodium 141 Potassium 3.8 Chloride 108 H Carbon Dioxide 24 Anion Gap 13 BUN 10 Creatinine 0.6 L Est GFR ( Amer) > 60 Est GFR (Non-Af Amer) > 60 POC Glucose (mg/dL) Random Glucose 127 H Serum Osmolality 297 Calcium 9.4 Total Bilirubin AST ALT Alkaline Phosphatase Troponin I Total Protein Albumin Globulin Albumin/Globulin Ratio Triglycerides Cholesterol LDL Cholesterol Direct HDL Cholesterol Blood Type Blood Type Confirm A POSITIVE Antibody Screen BBK History Checked 05/19/18 05/19/18 04:00 04:00 WBC 9.6 RBC 4.33 Hgb 12.8 Hct 37.7 MCV 87.1 MCH 29.6 MCHC 34.0 RDW 13.1 Plt Count 328 MPV 10.3 Gran % 74.2 H Lymph % (Auto) 19.6 L [place] % (Auto) 6.1 H Eos % (Auto) 0.0 L Baso % (Auto) 0.1 Gran # 7.13 H Lymph # (Auto) 1.9 [place] # (Auto) 0.6 Eos # (Auto) 0.0 Baso # (Auto) 0.01 PT INR APTT Sodium 143 Potassium 3.6 Chloride 109 H Carbon Dioxide 26 Anion Gap 12 BUN 9 Creatinine 0.6 L Est GFR ( Amer) > 60 Est GFR (Non-Af Amer) > 60 POC Glucose (mg/dL) Random Glucose 117 H Serum Osmolality Calcium 9.6 Total Bilirubin AST ALT Alkaline Phosphatase Troponin I Total Protein Albumin Globulin Albumin/Globulin Ratio Triglycerides Cholesterol LDL Cholesterol Direct HDL Cholesterol Blood Type Blood Type Confirm Antibody Screen BBK History Checked
--- NOTE | 2018-05-19 10:18 | CT ---
Date of service: 05/19/2018 PROCEDURE: CT Angiography of the neck with contrast HISTORY: cva COMPARISON: None. TECHNIQUE: Contiguous axial images of the neck were obtained from the level of the skull-base to the superior mediastinum in the arteriographic phase of enhancement. Coronal and sagittal reformats or also generated. IV contrast dose: Radiation Dose - DLP: mGy-cm This CT exam was performed using one or more of the following dose reduction techniques: Automated exposure control, adjustment of the mA and/or kV according to patient size, and/or use of iterative reconstruction technique. FINDINGS: RIGHT CAROTID ARTERIES: Common Carotid Artery: Normal. Carotid Bifurcation: Normal. Internal Carotid Artery:Normal. External Carotid Artery (proximal branches): Normal. LEFT CAROTID ARTERIES: Common Carotid Artery: Normal. Carotid Bifurcation: Normal. Internal Carotid Artery:Normal. External Carotid Artery (proximal branches): Normal. VERTEBRAL ARTERIES: Right Vertebral Artery: Normal. Left Vertebral Artery: Normal. OTHER FINDINGS: None. IMPRESSION: Normal CT Angiography of the neck. PROCEDURE: CT Angiography of the Brain. HISTORY: cva COMPARISON: None available. TECHNIQUE: CT angiography of the intracranial arteries was performed. Coronal and sagittal maximum intensity projection reformated images were generated. This CT exam was performed using one or more of the following dose reduction techniques: Automated exposure control, adjustment of the mA and/or kV according to patient size, and/or use of iterative reconstruction technique. FINDINGS: INTERNAL CEREBRAL ARTERIES: Unremarkable. The skull base, petrous, cavernous and supraclinoid segments are bilaterally widely patent. ANTERIOR CEREBRAL ARTERIES: Unremarkable. A1 and A2 segments are widely patent. Smaller distal branches unremarkable, as visualized. MIDDLE CEREBRAL ARTERIES: Unremarkable. M1 and M2 segments are widely patent. Perisylvian branches grossly symmetric. POSTERIOR CIRCULATION: Basilar Artery: Unremarkable. Distal Vertebral Arteries: Unremarkable. Posterior Cerebral Arteries: Unremarkable. Posterior Inferior Cerebellar Arteries: Unremarkable. ANEURYSM/ VASCULAR MALFORMATIONS: None. OTHER FINDINGS: There is a large parieto-occipital hematoma measuring 58 x 45 x 20 mm. There is no associated vascular malformation. IMPRESSION: Unremarkable CT Angiography of the Brain.
--- NOTE | 2018-05-19 11:30 | CP.CCUPN ---
<Glenn Gifford - Last Filed: 05/19/18 11:39> CCU Subjective - Physician Review Subjective (Free Text): Glenn Gifford DO, PGY-1 ICU Progress Note for Dr. Guo Patient was seen and examined at bedside this AM. She reports no new complaints but still has L-sided hemiparesis. She is unable to move her LLE or LUE to gravity. She also has loss of sensation to LLE and LUE. She continues to deny CHEN, changes in vision, nausea/vomiting. CCU Objective - Vital Signs / Intake & Output Vital Signs (Last 4 hours): Vital Signs Pulse Resp BP Pulse Ox 05/19/18 09:20 82 24 98 05/19/18 09:10 85 19 99 05/19/18 09:00 78 19 137/78 98 05/19/18 08:50 54 L 15 98 05/19/18 08:40 52 L 13 99 05/19/18 08:30 54 L 12 98 05/19/18 08:20 61 13 97 05/19/18 08:10 61 14 97 05/19/18 08:00 55 L 14 126/57 L 98 05/19/18 07:50 55 L 15 97 05/19/18 07:40 80 26 H 94 L 05/19/18 07:30 53 L 14 98 Intake and Output (Last 8hrs): Intake & Output 05/18/18 05/19/18 05/19/18 22:59 06:59 14:59 Weight 150 lb 10.24 oz 150 lb Other: Voiding Method Bedpan - Physical Exam Head: Positive for: Atraumatic, Normocephalic Pupils: Positive for: PERRL Extroacular Muscles: Positive for: EOMI Conjunctiva: Positive for: Normal Mouth: Positive for: Moist Mucous Membranes Pharnyx: Positive for: Normal. Negative for: ERYTHEMA, EXUDATE Nose (Internal): Positive for: Normal Inspection Neck: Positive for: Normal Range of Motion. Negative for: JVD Respiratory/Chest: Positive for: Clear to Auscultation, Good Air Exchange. Negative for: Wheezes, Rales, Rhonchi Cardiovascular: Positive for: Regular Rate and Rhythm, Normal S1, S2. Negative for: Murmurs, Rub, Gallop Abdomen: Negative for: Tenderness, Rebound, Guarding Upper Extremity: Positive for: NORMAL PULSES. Negative for: Cyanosis, Edema Lower Extremity: Positive for: NORMAL PULSES. Negative for: Edema Neurological: Positive for: GCS=15, CN II-XII Intact, Speech Normal, Other (LLE and LUE 1/5 strength RLE and RUE 5/5 strength) Skin: Positive for: Warm, Dry, Normal Color Psychiatric: Positive for: Alert, Oriented x 3 - Medications Active Medications: Active Medications Generic Name Dose Route Start Last Admin Trade Name Freq PRN Reason Stop Dose Admin Acetaminophen 650 mg 05/18/18 18:34 Tylenol 325mg Tab PO Q4 PRN Pain, Mild (1-3) Levetiracetam 500 mg in 100 mls @ 400 mls/hr 05/19/18 06:00 05/19/18 06:26 Keppra 500mg Ivpb IVPB 400 mls/hr 0600,1800 ALICE Administration Sodium Chloride 500 mls @ 30 mls/hr 05/18/18 21:45 05/18/18 22:43 Hypertonic Saline 3% IV 30 mls/hr .[id number] ALICE Administration Acetaminophen 1,000 mg in 100 mls @ 400 mls/hr 05/18/18 22:40 Ofirmev IVPB 05/20/18 22:41 Q6H PRN Headache Ondansetron HCl 4 mg 05/18/18 18:34 05/18/18 20:09 Zofran Inj IVP 4 mg Q4H PRN Administration Nausea/Vomiting Pantoprazole Sodium 40 mg 05/18/18 18:00 05/18/18 20:11 Protonix Inj IVP 40 mg DAILY ALICE Administration - Patient Studies Lab Studies: Lab Studies 05/19/18 05/19/18 05/19/18 Range/Units 10:17 04:00 04:00 WBC 9.6 (4.5-11.0) 10^3/ul RBC 4.33 (3.5-6.1) 10^6/uL Hgb 12.8 (12.0-16.0) g/dL Hct 37.7 (36.0-48.0) % MCV 87.1 (80.0-105.0) fl MCH 29.6 (25.0-35.0) pg MCHC 34.0 (31.0-37.0) g/dl RDW 13.1 (11.5-14.5) % Plt Count 328 (120.0-450.0) 10^3/uL MPV 10.3 (7.0-11.0) fl Gran % 74.2 H (50.0-68.0) % Lymph % (Auto) 19.6 L (22.0-35.0) % [place] % (Auto) 6.1 H (1.0-6.0) % Eos % (Auto) 0.0 L (1.5-5.0) % Baso % (Auto) 0.1 (0.0-3.0) % Gran # 7.13 H (1.4-6.5) Lymph # (Auto) 1.9 (1.2-3.4) [place] # (Auto) 0.6 (0.1-0.6) Eos # (Auto) 0.0 (0.0-0.7) Baso # (Auto) 0.01 (0.0-2.0) K/mm3 PT (9.4-12.5) SECONDS INR APTT (25.1-36.5) Seconds Sodium 143 (132-148) mmol/L Potassium 3.6 (3.6-5.0) mmol/L Chloride 109 H (98-107) mmol/L Carbon Dioxide 26 (21-33) mmol/L Anion Gap 12 (10-20) BUN 9 (7-21) mg/dL Creatinine 0.6 L (0.7-1.2) mg/dl Est GFR ( Amer) > 60 Est GFR (Non-Af Amer) > 60 POC Glucose (mg/dL) 106 (65-110) mg/dL Random Glucose 117 H (70-110) mg/dL Serum Osmolality (272-300) mosm/kg Calcium 9.6 (8.4-10.5) mg/dL Total Bilirubin (0.2-1.3) mg/dL AST (14-36) U/L ALT (7-56) U/L Alkaline Phosphatase (38-126) U/L Troponin I ng/mL Total Protein (5.8-8.3) g/dL Albumin (3.0-4.8) g/dL Globulin gm/dL Albumin/Globulin Ratio (1.1-1.8) Triglycerides (35-160) mg/dL Cholesterol (130-200) mg/dL LDL Cholesterol Direct (0-129) mg/dL HDL Cholesterol (29-60) mg/dL Blood Type Blood Type Confirm Antibody Screen BBK History Checked 05/19/18 05/18/18 05/18/18 Range/Units 00:30 23:30 22:52 WBC (4.5-11.0) 10^3/ul RBC (3.5-6.1) 10^6/uL Hgb (12.0-16.0) g/dL Hct (36.0-48.0) % MCV (80.0-105.0) fl MCH (25.0-35.0) pg MCHC (31.0-37.0) g/dl RDW (11.5-14.5) % Plt Count (120.0-450.0) 10^3/uL MPV (7.0-11.0) fl Gran % (50.0-68.0) % Lymph % (Auto) (22.0-35.0) % [place] % (Auto) (1.0-6.0) % Eos % (Auto) (1.5-5.0) % Baso % (Auto) (0.0-3.0) % Gran # (1.4-6.5) Lymph # (Auto) (1.2-3.4) [place] # (Auto) (0.1-0.6) Eos # (Auto) (0.0-0.7) Baso # (Auto) (0.0-2.0) K/mm3 PT (9.4-12.5) SECONDS INR APTT (25.1-36.5) Seconds Sodium 141 (132-148) mmol/L Potassium 3.8 (3.6-5.0) mmol/L Chloride 108 H (98-107) mmol/L Carbon Dioxide 24 (21-33) mmol/L Anion Gap 13 (10-20) BUN 10 (7-21) mg/dL Creatinine 0.6 L (0.7-1.2) mg/dl Est GFR ( Amer) > 60 Est GFR (Non-Af Amer) > 60 POC Glucose (mg/dL) (65-110) mg/dL Random Glucose 127 H (70-110) mg/dL Serum Osmolality 297 (272-300) mosm/kg Calcium 9.4 (8.4-10.5) mg/dL Total Bilirubin (0.2-1.3) mg/dL AST (14-36) U/L ALT (7-56) U/L Alkaline Phosphatase (38-126) U/L Troponin I ng/mL Total Protein (5.8-8.3) g/dL Albumin (3.0-4.8) g/dL Globulin gm/dL Albumin/Globulin Ratio (1.1-1.8) Triglycerides (35-160) mg/dL Cholesterol (130-200) mg/dL LDL Cholesterol Direct (0-129) mg/dL HDL Cholesterol (29-60) mg/dL Blood Type Blood Type Confirm A POSITIVE Antibody Screen BBK History Checked 05/18/18 05/18/18 05/18/18 Range/Units 15:30 15:15 15:15 WBC (4.5-11.0) 10^3/ul RBC (3.5-6.1) 10^6/uL Hgb (12.0-16.0) g/dL Hct (36.0-48.0) % MCV (80.0-105.0) fl MCH (25.0-35.0) pg MCHC (31.0-37.0) g/dl RDW (11.5-14.5) % Plt Count (120.0-450.0) 10^3/uL MPV (7.0-11.0) fl Gran % (50.0-68.0) % Lymph % (Auto) (22.0-35.0) % [place] % (Auto) (1.0-6.0) % Eos % (Auto) (1.5-5.0) % Baso % (Auto) (0.0-3.0) % Gran # (1.4-6.5) Lymph # (Auto) (1.2-3.4) [place] # (Auto) (0.1-0.6) Eos # (Auto) (0.0-0.7) Baso # (Auto) (0.0-2.0) K/mm3 PT (9.4-12.5) SECONDS INR APTT (25.1-36.5) Seconds Sodium 138 (132-148) mmol/L Potassium 3.9 (3.6-5.0) mmol/L Chloride 103 (98-107) mmol/L Carbon Dioxide 26 (21-33) mmol/L Anion Gap 13 (10-20) BUN 14 (7-21) mg/dL Creatinine 0.6 L (0.7-1.2) mg/dl Est GFR ( Amer) > 60 Est GFR (Non-Af Amer) > 60 POC Glucose (mg/dL) (65-110) mg/dL Random Glucose 128 H (70-110) mg/dL Serum Osmolality 290 (272-300) mosm/kg Calcium 9.6 (8.4-10.5) mg/dL Total Bilirubin 0.4 (0.2-1.3) mg/dL AST 42 H (14-36) U/L ALT 39 (7-56) U/L Alkaline Phosphatase 115 (38-126) U/L Troponin I < 0.01 ng/mL Total Protein 8.2 (5.8-8.3) g/dL Albumin 4.5 (3.0-4.8) g/dL Globulin 3.8 gm/dL Albumin/Globulin Ratio 1.2 (1.1-1.8) Triglycerides 84 (35-160) mg/dL Cholesterol 191 (130-200) mg/dL LDL Cholesterol Direct 89 (0-129) mg/dL HDL Cholesterol 62 H (29-60) mg/dL Blood Type A POSITIVE Blood Type Confirm Antibody Screen Negative BBK History Checked No verified bt 05/18/18 05/18/18 05/18/18 Range/Units 15:15 15:15 15:07 WBC 10.6 (4.5-11.0) 10^3/ul RBC 4.47 (3.5-6.1) 10^6/uL Hgb 13.4 (12.0-16.0) g/dL Hct 38.9 (36.0-48.0) % MCV 87.0 (80.0-105.0) fl MCH 30.0 (25.0-35.0) pg MCHC 34.4 (31.0-37.0) g/dl RDW 13.1 (11.5-14.5) % Plt Count 331 (120.0-450.0) 10^3/uL MPV 10.6 (7.0-11.0) fl Gran % 87.9 H (50.0-68.0) % Lymph % (Auto) 9.7 L (22.0-35.0) % [place] % (Auto) 2.2 (1.0-6.0) % Eos % (Auto) 0.0 L (1.5-5.0) % Baso % (Auto) 0.2 (0.0-3.0) % Gran # 9.35 H (1.4-6.5) Lymph # (Auto) 1.0 L (1.2-3.4) [place] # (Auto) 0.2 (0.1-0.6) Eos # (Auto) 0.0 (0.0-0.7) Baso # (Auto) 0.02 (0.0-2.0) K/mm3 PT 12.8 H (9.4-12.5) SECONDS INR 1.12 APTT 29.0 (25.1-36.5) Seconds Sodium (132-148) mmol/L Potassium (3.6-5.0) mmol/L Chloride (98-107) mmol/L Carbon Dioxide (21-33) mmol/L Anion Gap (10-20) BUN (7-21) mg/dL Creatinine (0.7-1.2) mg/dl Est GFR ( Amer) Est GFR (Non-Af Amer) POC Glucose (mg/dL) 115 H (65-110) mg/dL Random Glucose (70-110) mg/dL Serum Osmolality (272-300) mosm/kg Calcium (8.4-10.5) mg/dL Total Bilirubin (0.2-1.3) mg/dL AST (14-36) U/L ALT (7-56) U/L Alkaline Phosphatase (38-126) U/L Troponin I ng/mL Total Protein (5.8-8.3) g/dL Albumin (3.0-4.8) g/dL Globulin gm/dL Albumin/Globulin Ratio (1.1-1.8) Triglycerides (35-160) mg/dL Cholesterol (130-200) mg/dL LDL Cholesterol Direct (0-129) mg/dL HDL Cholesterol (29-60) mg/dL Blood Type Blood Type Confirm Antibody Screen BBK History Checked Laboratory Results - last 24 hr 05/18/18 05/18/18 05/18/18 15:07 15:15 15:15 WBC 10.6 RBC 4.47 Hgb 13.4 Hct 38.9 MCV 87.0 MCH 30.0 MCHC 34.4 RDW 13.1 Plt Count 331 MPV 10.6 Gran % 87.9 H Lymph % (Auto) 9.7 L [place] % (Auto) 2.2 Eos % (Auto) 0.0 L Baso % (Auto) 0.2 Gran # 9.35 H Lymph # (Auto) 1.0 L [place] # (Auto) 0.2 Eos # (Auto) 0.0 Baso # (Auto) 0.02 PT 12.8 H INR 1.12 APTT 29.0 Sodium Potassium Chloride Carbon Dioxide Anion Gap BUN Creatinine Est GFR ( Amer) Est GFR (Non-Af Amer) POC Glucose (mg/dL) 115 H Random Glucose Serum Osmolality Calcium Total Bilirubin AST ALT Alkaline Phosphatase Troponin I Total Protein Albumin Globulin Albumin/Globulin Ratio Triglycerides Cholesterol LDL Cholesterol Direct HDL Cholesterol Blood Type Blood Type Confirm Antibody Screen BBK History Checked 05/18/18 05/18/18 05/18/18 15:15 15:15 15:30 WBC RBC Hgb Hct MCV MCH MCHC RDW Plt Count MPV Gran % Lymph % (Auto) [place] % (Auto) Eos % (Auto) Baso % (Auto) Gran # Lymph # (Auto) [place] # (Auto) Eos # (Auto) Baso # (Auto) PT INR APTT Sodium 138 Potassium 3.9 Chloride 103 Carbon Dioxide 26 Anion Gap 13 BUN 14 Creatinine 0.6 L Est GFR ( Amer) > 60 Est GFR (Non-Af Amer) > 60 POC Glucose (mg/dL) Random Glucose 128 H Serum Osmolality 290 Calcium 9.6 Total Bilirubin 0.4 AST 42 H ALT 39 Alkaline Phosphatase 115 Troponin I < 0.01 Total Protein 8.2 Albumin 4.5 Globulin 3.8 Albumin/Globulin Ratio 1.2 Triglycerides 84 Cholesterol 191 LDL Cholesterol Direct 89 HDL Cholesterol 62 H Blood Type A POSITIVE Blood Type Confirm Antibody Screen Negative BBK History Checked No verified bt 05/18/18 05/18/18 05/19/18 22:52 23:30 00:30 WBC RBC Hgb Hct MCV MCH MCHC RDW Plt Count MPV Gran % Lymph % (Auto) [place] % (Auto) Eos % (Auto) Baso % (Auto) Gran # Lymph # (Auto) [place] # (Auto) Eos # (Auto) Baso # (Auto) PT INR APTT Sodium 141 Potassium 3.8 Chloride 108 H Carbon Dioxide 24 Anion Gap 13 BUN 10 Creatinine 0.6 L Est GFR ( Amer) > 60 Est GFR (Non-Af Amer) > 60 POC Glucose (mg/dL) Random Glucose 127 H Serum Osmolality 297 Calcium 9.4 Total Bilirubin AST ALT Alkaline Phosphatase Troponin I Total Protein Albumin Globulin Albumin/Globulin Ratio Triglycerides Cholesterol LDL Cholesterol Direct HDL Cholesterol Blood Type Blood Type Confirm A POSITIVE Antibody Screen BBK History Checked 05/19/18 05/19/18 05/19/18 04:00 04:00 10:17 WBC 9.6 RBC 4.33 Hgb 12.8 Hct 37.7 MCV 87.1 MCH 29.6 MCHC 34.0 RDW 13.1 Plt Count 328 MPV 10.3 Gran % 74.2 H Lymph % (Auto) 19.6 L [place] % (Auto) 6.1 H Eos % (Auto) 0.0 L Baso % (Auto) 0.1 Gran # 7.13 H Lymph # (Auto) 1.9 [place] # (Auto) 0.6 Eos # (Auto) 0.0 Baso # (Auto) 0.01 PT INR APTT Sodium 143 Potassium 3.6 Chloride 109 H Carbon Dioxide 26 Anion Gap 12 BUN 9 Creatinine 0.6 L Est GFR ( Amer) > 60 Est GFR (Non-Af Amer) > 60 POC Glucose (mg/dL) 106 Random Glucose 117 H Serum Osmolality Calcium 9.6 Total Bilirubin AST ALT Alkaline Phosphatase Troponin I Total Protein Albumin Globulin Albumin/Globulin Ratio Triglycerides Cholesterol LDL Cholesterol Direct HDL Cholesterol Blood Type Blood Type Confirm Antibody Screen BBK History Checked EKG/Cardiology Studies: Cardiology / EKG Studies 05/18/18 15:07 ELECTROCARDIOGRAM Stat Comment: Reason For Exam: arrythmia Fingerstick Blood Sugar Results: 115 Review of Systems - EENT Eyes: absent: Blurred Vision, Change in Vision - Cardiovascular Cardiovascular: absent: Chest Pain, Dyspnea - Gastrointestinal Gastrointestinal: absent: Abdominal Pain, Nausea, Vomiting - Neurological Neurological: Sensory Deficit Critical Care Progress Note - Nutrition Nutrition: Nutrition Category Date Time Status NPO Diet [DIET] Diets 05/18/18 Dinner Ordered Assessment/Plan - Assessment and Plan (Free Text) Assessment: 63 yo F with PMH of HTN presented to ED with sudden LLE and LUE weakness and fall found to have R sided intracranial hemorrhage on head CT. She was subsequently admitted to ICU for further management of intracranial hemorrhage. Plan: Neuro: Currently A/o x 3, awake, alert, conversational LLE and LUE motor and sensory deficits unchanged from yesterday LLE and LUE motor strength 1/5 compared to 5/5 strength on right LLE and LUE sensory deficits also present F/u head CT this AM shows no increase in size of intracranial hemorrhage Neurosurgery evaluated this AM, no plan for surgical intervention at this time Per neurology recs, maintain Na level from 140-145 Continue hypertonic saline, continue to monitor sodium, repeat sodium level at 1500 F/u neurology recs Cardio: RRR, normotensive, no signs of HD compromise Maintain MAP>65. Monitor for S/S, HD compromise Echo pending Pulm: No signs of respiratory distress. CTA B/L Patient is stating well on room air. Maintain O2 saturation>95%. O2 NC PRN GI: Per speech therapy, she is cleared for mechanical soft diet Will await neurology recs prior to starting diet Protonix for GI PPX /Nephro: BUN/Cr stable UOP low overnight, continue to monitor Replete electrolytes as needed Maintain euvolemia Endocrine: Maintain euglycemia ID: Afebrile, no leukocytosis Heme/Onc: H/H stable No signs of HD compromise. Continue monitoring H/H Case and plan reviewed and discussed with my attending Dr. Sari Gifford, DO IM Resident PGY-1 <Manuel Guo - Last Filed: 05/19/18 12:27> CCU Objective - Vital Signs / Intake & Output Vital Signs (Last 4 hours): Vital Signs Pulse Resp BP Pulse Ox 05/19/18 09:20 82 24 98 05/19/18 09:10 85 19 99 05/19/18 09:00 78 19 137/78 98 05/19/18 08:50 54 L 15 98 05/19/18 08:40 52 L 13 99 05/19/18 08:30 54 L 12 98 Intake and Output (Last 8hrs): Intake & Output 05/18/18 05/19/18 05/19/18 22:59 06:59 14:59 Weight 150 lb 10.24 oz 150 lb Other: Voiding Method Bedpan - Medications Active Medications: Active Medications Generic Name Dose Route Start Last Admin Trade Name Freq PRN Reason Stop Dose Admin Acetaminophen 650 mg 05/18/18 18:34 Tylenol 325mg Tab PO Q4 PRN Pain, Mild (1-3) Levetiracetam 500 mg in 100 mls @ 400 mls/hr 05/19/18 06:00 05/19/18 06:26 Keppra 500mg Ivpb IVPB 400 mls/hr 0600,1800 ALICE Administration Sodium Chloride 500 mls @ 30 mls/hr 05/18/18 21:45 05/18/18 22:43 Hypertonic Saline 3% IV 30 mls/hr .[id number] ALICE Administration Acetaminophen 1,000 mg in 100 mls @ 400 mls/hr 05/18/18 22:40 Ofirmev IVPB 05/20/18 22:41 Q6H PRN Headache Ondansetron HCl 4 mg 05/18/18 18:34 05/18/18 20:09 Zofran Inj IVP 4 mg Q4H PRN Administration Nausea/Vomiting Pantoprazole Sodium 40 mg 05/18/18 18:00 05/19/18 10:00 Protonix Inj IVP 40 mg DAILY ALICE Administration - Patient Studies Lab Studies: Lab Studies 05/19/18 05/19/18 05/19/18 Range/Units 12:04 12:00 10:17 WBC (4.5-11.0) 10^3/ul RBC (3.5-6.1) 10^6/uL Hgb (12.0-16.0) g/dL Hct (36.0-48.0) % MCV (80.0-105.0) fl MCH (25.0-35.0) pg MCHC (31.0-37.0) g/dl RDW (11.5-14.5) % Plt Count (120.0-450.0) 10^3/uL MPV (7.0-11.0) fl Gran % (50.0-68.0) % Lymph % (Auto) (22.0-35.0) % [place] % (Auto) (1.0-6.0) % Eos % (Auto) (1.5-5.0) % Baso % (Auto) (0.0-3.0) % Gran # (1.4-6.5) Lymph # (Auto) (1.2-3.4) [place] # (Auto) (0.1-0.6) Eos # (Auto) (0.0-0.7) Baso # (Auto) (0.0-2.0) K/mm3 PT (9.4-12.5) SECONDS INR APTT (25.1-36.5) Seconds Sodium 141 (132-148) mmol/L Potassium 3.9 (3.6-5.0) mmol/L Chloride 105 (98-107) mmol/L Carbon Dioxide 23 (21-33) mmol/L Anion Gap 17 (10-20) BUN 8 (7-21) mg/dL Creatinine 0.5 L (0.7-1.2) mg/dl Est GFR ( Amer) > 60 Est GFR (Non-Af Amer) > 60 POC Glucose (mg/dL) 114 H 106 (65-110) mg/dL Random Glucose 123 H (70-110) mg/dL Serum Osmolality (272-300) mosm/kg Calcium 8.9 (8.4-10.5) mg/dL Total Bilirubin (0.2-1.3) mg/dL AST (14-36) U/L ALT (7-56) U/L Alkaline Phosphatase (38-126) U/L Troponin I ng/mL Total Protein (5.8-8.3) g/dL Albumin (3.0-4.8) g/dL Globulin gm/dL Albumin/Globulin Ratio (1.1-1.8) Triglycerides (35-160) mg/dL Cholesterol (130-200) mg/dL LDL Cholesterol Direct (0-129) mg/dL HDL Cholesterol (29-60) mg/dL Blood Type Blood Type Confirm Antibody Screen BBK History Checked 05/19/18 05/19/18 05/19/18 Range/Units 06:35 04:00 04:00 WBC 9.6 (4.5-11.0) 10^3/ul RBC 4.33 (3.5-6.1) 10^6/uL Hgb 12.8 (12.0-16.0) g/dL Hct 37.7 (36.0-48.0) % MCV 87.1 (80.0-105.0) fl MCH 29.6 (25.0-35.0) pg MCHC 34.0 (31.0-37.0) g/dl RDW 13.1 (11.5-14.5) % Plt Count 328 (120.0-450.0) 10^3/uL MPV 10.3 (7.0-11.0) fl Gran % 74.2 H (50.0-68.0) % Lymph % (Auto) 19.6 L (22.0-35.0) % [place] % (Auto) 6.1 H (1.0-6.0) % Eos % (Auto) 0.0 L (1.5-5.0) % Baso % (Auto) 0.1 (0.0-3.0) % Gran # 7.13 H (1.4-6.5) Lymph # (Auto) 1.9 (1.2-3.4) [place] # (Auto) 0.6 (0.1-0.6) Eos # (Auto) 0.0 (0.0-0.7) Baso # (Auto) 0.01 (0.0-2.0) K/mm3 PT (9.4-12.5) SECONDS INR APTT (25.1-36.5) Seconds Sodium 143 (132-148) mmol/L Potassium 3.6 (3.6-5.0) mmol/L Chloride 109 H (98-107) mmol/L Carbon Dioxide 26 (21-33) mmol/L Anion Gap 12 (10-20) BUN 9 (7-21) mg/dL Creatinine 0.6 L (0.7-1.2) mg/dl Est GFR ( Amer) > 60 Est GFR (Non-Af Amer) > 60 POC Glucose (mg/dL) (65-110) mg/dL Random Glucose 117 H (70-110) mg/dL Serum Osmolality 296 (272-300) mosm/kg Calcium 9.6 (8.4-10.5) mg/dL Total Bilirubin (0.2-1.3) mg/dL AST (14-36) U/L ALT (7-56) U/L Alkaline Phosphatase (38-126) U/L Troponin I ng/mL Total Protein (5.8-8.3) g/dL Albumin (3.0-4.8) g/dL Globulin gm/dL Albumin/Globulin Ratio (1.1-1.8) Triglycerides (35-160) mg/dL Cholesterol (130-200) mg/dL LDL Cholesterol Direct (0-129) mg/dL HDL Cholesterol (29-60) mg/dL Blood Type Blood Type Confirm Antibody Screen BBK History Checked 05/19/18 05/18/18 05/18/18 Range/Units 00:30 23:30 22:52 WBC (4.5-11.0) 10^3/ul RBC (3.5-6.1) 10^6/uL Hgb (12.0-16.0) g/dL Hct (36.0-48.0) % MCV (80.0-105.0) fl MCH (25.0-35.0) pg MCHC (31.0-37.0) g/dl RDW (11.5-14.5) % Plt Count (120.0-450.0) 10^3/uL MPV (7.0-11.0) fl Gran % (50.0-68.0) % Lymph % (Auto) (22.0-35.0) % [place] % (Auto) (1.0-6.0) % Eos % (Auto) (1.5-5.0) % Baso % (Auto) (0.0-3.0) % Gran # (1.4-6.5) Lymph # (Auto) (1.2-3.4) [place] # (Auto) (0.1-0.6) Eos # (Auto) (0.0-0.7) Baso # (Auto) (0.0-2.0) K/mm3 PT (9.4-12.5) SECONDS INR APTT (25.1-36.5) Seconds Sodium 141 (132-148) mmol/L Potassium 3.8 (3.6-5.0) mmol/L Chloride 108 H (98-107) mmol/L Carbon Dioxide 24 (21-33) mmol/L Anion Gap 13 (10-20) BUN 10 (7-21) mg/dL Creatinine 0.6 L (0.7-1.2) mg/dl Est GFR ( Amer) > 60 Est GFR (Non-Af Amer) > 60 POC Glucose (mg/dL) (65-110) mg/dL Random Glucose 127 H (70-110) mg/dL Serum Osmolality 297 (272-300) mosm/kg Calcium 9.4 (8.4-10.5) mg/dL Total Bilirubin (0.2-1.3) mg/dL AST (14-36) U/L ALT (7-56) U/L Alkaline Phosphatase (38-126) U/L Troponin I ng/mL Total Protein (5.8-8.3) g/dL Albumin (3.0-4.8) g/dL Globulin gm/dL Albumin/Globulin Ratio (1.1-1.8) Triglycerides (35-160) mg/dL Cholesterol (130-200) mg/dL LDL Cholesterol Direct (0-129) mg/dL HDL Cholesterol (29-60) mg/dL Blood Type Blood Type Confirm A POSITIVE Antibody Screen BBK History Checked 05/18/18 05/18/18 05/18/18 Range/Units 15:30 15:15 15:15 WBC (4.5-11.0) 10^3/ul RBC (3.5-6.1) 10^6/uL Hgb (12.0-16.0) g/dL Hct (36.0-48.0) % MCV (80.0-105.0) fl MCH (25.0-35.0) pg MCHC (31.0-37.0) g/dl RDW (11.5-14.5) % Plt Count (120.0-450.0) 10^3/uL MPV (7.0-11.0) fl Gran % (50.0-68.0) % Lymph % (Auto) (22.0-35.0) % [place] % (Auto) (1.0-6.0) % Eos % (Auto) (1.5-5.0) % Baso % (Auto) (0.0-3.0) % Gran # (1.4-6.5) Lymph # (Auto) (1.2-3.4) [place] # (Auto) (0.1-0.6) Eos # (Auto) (0.0-0.7) Baso # (Auto) (0.0-2.0) K/mm3 PT (9.4-12.5) SECONDS INR APTT (25.1-36.5) Seconds Sodium 138 (132-148) mmol/L Potassium 3.9 (3.6-5.0) mmol/L Chloride 103 (98-107) mmol/L Carbon Dioxide 26 (21-33) mmol/L Anion Gap 13 (10-20) BUN 14 (7-21) mg/dL Creatinine 0.6 L (0.7-1.2) mg/dl Est GFR ( Amer) > 60 Est GFR (Non-Af Amer) > 60 POC Glucose (mg/dL) (65-110) mg/dL Random Glucose 128 H (70-110) mg/dL Serum Osmolality 290 (272-300) mosm/kg Calcium 9.6 (8.4-10.5) mg/dL Total Bilirubin 0.4 (0.2-1.3) mg/dL AST 42 H (14-36) U/L ALT 39 (7-56) U/L Alkaline Phosphatase 115 (38-126) U/L Troponin I < 0.01 ng/mL Total Protein 8.2 (5.8-8.3) g/dL Albumin 4.5 (3.0-4.8) g/dL Globulin 3.8 gm/dL Albumin/Globulin Ratio 1.2 (1.1-1.8) Triglycerides 84 (35-160) mg/dL Cholesterol 191 (130-200) mg/dL LDL Cholesterol Direct 89 (0-129) mg/dL HDL Cholesterol 62 H (29-60) mg/dL Blood Type A POSITIVE Blood Type Confirm Antibody Screen Negative BBK History Checked No verified bt 05/18/18 05/18/18 05/18/18 Range/Units 15:15 15:15 15:07 WBC 10.6 (4.5-11.0) 10^3/ul RBC 4.47 (3.5-6.1) 10^6/uL Hgb 13.4 (12.0-16.0) g/dL Hct 38.9 (36.0-48.0) % MCV 87.0 (80.0-105.0) fl MCH 30.0 (25.0-35.0) pg MCHC 34.4 (31.0-37.0) g/dl RDW 13.1 (11.5-14.5) % Plt Count 331 (120.0-450.0) 10^3/uL MPV 10.6 (7.0-11.0) fl Gran % 87.9 H (50.0-68.0) % Lymph % (Auto) 9.7 L (22.0-35.0) % [place] % (Auto) 2.2 (1.0-6.0) % Eos % (Auto) 0.0 L (1.5-5.0) % Baso % (Auto) 0.2 (0.0-3.0) % Gran # 9.35 H (1.4-6.5) Lymph # (Auto) 1.0 L (1.2-3.4) [place] # (Auto) 0.2 (0.1-0.6) Eos # (Auto) 0.0 (0.0-0.7) Baso # (Auto) 0.02 (0.0-2.0) K/mm3 PT 12.8 H (9.4-12.5) SECONDS INR 1.12 APTT 29.0 (25.1-36.5) Seconds Sodium (132-148) mmol/L Potassium (3.6-5.0) mmol/L Chloride (98-107) mmol/L Carbon Dioxide (21-33) mmol/L Anion Gap (10-20) BUN (7-21) mg/dL Creatinine (0.7-1.2) mg/dl Est GFR ( Amer) Est GFR (Non-Af Amer) POC Glucose (mg/dL) 115 H (65-110) mg/dL Random Glucose (70-110) mg/dL Serum Osmolality (272-300) mosm/kg Calcium (8.4-10.5) mg/dL Total Bilirubin (0.2-1.3) mg/dL AST (14-36) U/L ALT (7-56) U/L Alkaline Phosphatase (38-126) U/L Troponin I ng/mL Total Protein (5.8-8.3) g/dL Albumin (3.0-4.8) g/dL Globulin gm/dL Albumin/Globulin Ratio (1.1-1.8) Triglycerides (35-160) mg/dL Cholesterol (130-200) mg/dL LDL Cholesterol Direct (0-129) mg/dL HDL Cholesterol (29-60) mg/dL Blood Type Blood Type Confirm Antibody Screen BBK History Checked Laboratory Results - last 24 hr 05/18/18 05/18/18 05/18/18 15:07 15:15 15:15 WBC 10.6 RBC 4.47 Hgb 13.4 Hct 38.9 MCV 87.0 MCH 30.0 MCHC 34.4 RDW 13.1 Plt Count 331 MPV 10.6 Gran % 87.9 H Lymph % (Auto) 9.7 L [place] % (Auto) 2.2 Eos % (Auto) 0.0 L Baso % (Auto) 0.2 Gran # 9.35 H Lymph # (Auto) 1.0 L [place] # (Auto) 0.2 Eos # (Auto) 0.0 Baso # (Auto) 0.02 PT 12.8 H INR 1.12 APTT 29.0 Sodium Potassium Chloride Carbon Dioxide Anion Gap BUN Creatinine Est GFR ( Amer) Est GFR (Non-Af Amer) POC Glucose (mg/dL) 115 H Random Glucose Serum Osmolality Calcium Total Bilirubin AST ALT Alkaline Phosphatase Troponin I Total Protein Albumin Globulin Albumin/Globulin Ratio Triglycerides Cholesterol LDL Cholesterol Direct HDL Cholesterol Blood Type Blood Type Confirm Antibody Screen BBK History Checked 05/18/18 05/18/18 05/18/18 15:15 15:15 15:30 WBC RBC Hgb Hct MCV MCH MCHC RDW Plt Count MPV Gran % Lymph % (Auto) [place] % (Auto) Eos % (Auto) Baso % (Auto) Gran # Lymph # (Auto) [place] # (Auto) Eos # (Auto) Baso # (Auto) PT INR APTT Sodium 138 Potassium 3.9 Chloride 103 Carbon Dioxide 26 Anion Gap 13 BUN 14 Creatinine 0.6 L Est GFR ( Amer) > 60 Est GFR (Non-Af Amer) > 60 POC Glucose (mg/dL) Random Glucose 128 H Serum Osmolality 290 Calcium 9.6 Total Bilirubin 0.4 AST 42 H ALT 39 Alkaline Phosphatase 115 Troponin I < 0.01 Total Protein 8.2 Albumin 4.5 Globulin 3.8 Albumin/Globulin Ratio 1.2 Triglycerides 84 Cholesterol 191 LDL Cholesterol Direct 89 HDL Cholesterol 62 H Blood Type A POSITIVE Blood Type Confirm Antibody Screen Negative BBK History Checked No verified bt 05/18/18 05/18/18 05/19/18 22:52 23:30 00:30 WBC RBC Hgb Hct MCV MCH MCHC RDW Plt Count MPV Gran % Lymph % (Auto) [place] % (Auto) Eos % (Auto) Baso % (Auto) Gran # Lymph # (Auto) [place] # (Auto) Eos # (Auto) Baso # (Auto) PT INR APTT Sodium 141 Potassium 3.8 Chloride 108 H Carbon Dioxide 24 Anion Gap 13 BUN 10 Creatinine 0.6 L Est GFR ( Amer) > 60 Est GFR (Non-Af Amer) > 60 POC Glucose (mg/dL) Random Glucose 127 H Serum Osmolality 297 Calcium 9.4 Total Bilirubin AST ALT Alkaline Phosphatase Troponin I Total Protein Albumin Globulin Albumin/Globulin Ratio Triglycerides Cholesterol LDL Cholesterol Direct HDL Cholesterol Blood Type Blood Type Confirm A POSITIVE Antibody Screen BBK History Checked 05/19/18 05/19/18 05/19/18 04:00 04:00 06:35 WBC 9.6 RBC 4.33 Hgb 12.8 Hct 37.7 MCV 87.1 MCH 29.6 MCHC 34.0 RDW 13.1 Plt Count 328 MPV 10.3 Gran % 74.2 H Lymph % (Auto) 19.6 L [place] % (Auto) 6.1 H Eos % (Auto) 0.0 L Baso % (Auto) 0.1 Gran # 7.13 H Lymph # (Auto) 1.9 [place] # (Auto) 0.6 Eos # (Auto) 0.0 Baso # (Auto) 0.01 PT INR APTT Sodium 143 Potassium 3.6 Chloride 109 H Carbon Dioxide 26 Anion Gap 12 BUN 9 Creatinine 0.6 L Est GFR ( Amer) > 60 Est GFR (Non-Af Amer) > 60 POC Glucose (mg/dL) Random Glucose 117 H Serum Osmolality 296 Calcium 9.6 Total Bilirubin AST ALT Alkaline Phosphatase Troponin I Total Protein Albumin Globulin Albumin/Globulin Ratio Triglycerides Cholesterol LDL Cholesterol Direct HDL Cholesterol Blood Type Blood Type Confirm Antibody Screen BBK History Checked 05/19/18 05/19/18 05/19/18 10:17 12:00 12:04 WBC RBC Hgb Hct MCV MCH MCHC RDW Plt Count MPV Gran % Lymph % (Auto) [place] % (Auto) Eos % (Auto) Baso % (Auto) Gran # Lymph # (Auto) [place] # (Auto) Eos # (Auto) Baso # (Auto) PT INR APTT Sodium 141 Potassium 3.9 Chloride 105 Carbon Dioxide 23 Anion Gap 17 BUN 8 Creatinine 0.5 L Est GFR ( Amer) > 60 Est GFR (Non-Af Amer) > 60 POC Glucose (mg/dL) 106 114 H Random Glucose 123 H Serum Osmolality Calcium 8.9 Total Bilirubin AST ALT Alkaline Phosphatase Troponin I Total Protein Albumin Globulin Albumin/Globulin Ratio Triglycerides Cholesterol LDL Cholesterol Direct HDL Cholesterol Blood Type Blood Type Confirm Antibody Screen BBK History Checked EKG/Cardiology Studies: Cardiology / EKG Studies 05/18/18 15:07 ELECTROCARDIOGRAM Stat Comment: Reason For Exam: arrythmia Critical Care Progress Note - Nutrition Nutrition: Nutrition Category Date Time Status NPO Diet [DIET] Diets 05/18/18 Dinner Ordered Assessment/Plan - Assessment and Plan (Free Text) Plan: Patient seen and examined on rounds with resident, agree with note with following additions/exceptions: Patient is 63yo female with PMHx of HTN admitted with R frontal ICH. Currently afebrile, BP stable comfortable in NAD, AAOx3, protecting airway On exam RUE/RLE 5/5, LUE/LLL 0/5 Neurosurgery consulted, no intervention at this time Given Mannitol in the ER Started on 3% saline, Na appropriately responding, Na 143, goal 140-145 IPH HTN Recommend: - supp o2 as needed, duonebs PRN - panculture, UCx, BCx, Check Procal - BP control goal SBP 140-160 - q1hr neuro checks - 3% Na 30cc/hr, goal Na 140-145 - follow up neurology, neurosurgery - NPO - speech swallow eval - ECHO - MRI/MRA brain - GI ppx - DVT ppx, SCDs - Monitor in MICU Critical care time 35 minutes
[2018-05-19 12:20] LABS: BLOOD UREA NITROGEN 8 mg/dL (7-21); CALCIUM 8.9 mg/dL (8.4-10.5); GFR NON-AFRICAN AMERICAN > 60
--- NOTE | 2018-05-19 12:49 | CARD ---
APPROVED REPORT Date of service: 05/18/2018 EKG Measurement Heart [id number] <Conclusion> Normal sinus rhythm with sinus arrhythmia ST & T wave abnormality, consider inferior ischemia Abnormal ECG
--- NOTE | 2018-05-19 12:59 | CT ---
Date of service: 05/19/2018 PROCEDURE: CT HEAD WITHOUT CONTRAST. HISTORY: f/u cerebral hemorrhage COMPARISON: 05/18/2018 TECHNIQUE: Axial computed tomography images were obtained through the head/brain without intravenous contrast. Radiation dose: Total exam DLP = 811 mGy-cm. This CT exam was performed using one or more of the following dose reduction techniques: Automated exposure control, adjustment of the mA and/or kV according to patient size, and/or use of iterative reconstruction technique. FINDINGS: HEMORRHAGE: There is no change in the appearance of the intracerebral hematoma seen in the right parietal occipital lobe. This measures 2 x 5.6 cm. Please note. This scan was performed at 9:39 a.m. and was not available on the PACS system until 1 p.m. BRAIN: Mild mass effect with effacement of sulci and compression of the right lateral ventricle. No atrophy or chronic microvascular ischemic changes. VENTRICLES: Unremarkable. No hydrocephalus. CALVARIUM: Unremarkable. PARANASAL SINUSES: Unremarkable as visualized. No significant inflammatory changes. MASTOID AIR CELLS: Unremarkable as visualized. No inflammatory changes. OTHER FINDINGS: None. IMPRESSION: There is no change in the appearance of the intracerebral hematoma seen in the right parietal occipital lobe. This measures 2 x 5.6 cm. Please note. This scan was performed at 9:39 a.m. and was not available on the PACS system until 1 p.m.
--- NOTE | 2018-05-19 16:03 | CP.PCM.PN ---
<Rox Becker - Last Filed: 05/19/18 15:58> Subjective - Date & Time of Evaluation Date of Evaluation: 05/19/18 Time of Evaluation: 08:40 - Subjective Subjective: PGY-1 Medicine Progress Note for Dr. Penaloza's service Patient seen and examined at bedside. Patient reports inability to move left upper and lower extremity. Patient sensations decreased in left side as compared to right in upper extremity, lower extremity and face. Patient denies chest pain, sob, n/v, constipation or diarrhea, vision changes, headaches, lightheadedness, or dizziness. Objective - Vital Signs/Intake and Output Vital Signs (last 24 hours): Temp Pulse Resp BP Pulse Ox 98.3 F 78 16 135/83 99 05/19/18 07:00 05/19/18 15:00 05/19/18 15:00 05/19/18 15:00 05/19/18 15:00 Intake and Output: 05/19/18 05/19/18 06:59 18:59 Output Total 400 Balance -400 - Medications Medications: Current Medications Acetaminophen (Tylenol 325mg Tab) 650 mg PO Q4 PRN PRN Reason: Pain, Mild (1-3) Levetiracetam (Keppra 500mg Ivpb) 500 mg in 100 mls @ 400 mls/hr IVPB 0600,1800 [facility] Last Admin: 05/19/18 06:26 Dose: 400 mls/hr Sodium Chloride (Hypertonic Saline 3%) 500 mls @ 30 mls/hr IV .[id number] [facility] Last Admin: 05/18/18 22:43 Dose: 30 mls/hr Acetaminophen (Ofirmev) 1,000 mg in 100 mls @ 400 mls/hr IVPB Q6H PRN PRN Reason: Headache Stop: 05/20/18 22:41 Ondansetron HCl (Zofran Inj) 4 mg IVP Q4H PRN PRN Reason: Nausea/Vomiting Last Admin: 05/18/18 20:09 Dose: 4 mg Pantoprazole Sodium (Protonix Inj) 40 mg IVP DAILY [facility] Last Admin: 05/19/18 10:00 Dose: 40 mg - Labs Labs: 05/19/18 04:00 05/19/18 12:00 PT 12.8 SECONDS (9.4-12.5) H 05/18/18 15:15 INR 1.12 05/18/18 15:15 APTT 29.0 Seconds (25.1-36.5) 05/18/18 15:15 - Constitutional Appears: Non-toxic, No Acute Distress - Head Exam Head Exam: NORMAL INSPECTION, NORMOCEPHALIC - Eye Exam Eye Exam: EOMI, Normal appearance. absent: Nystagmus, Scleral icterus - ENT Exam ENT Exam: Mucous Membranes Moist - Respiratory Exam Respiratory Exam: Clear to Ausculation Bilateral, NORMAL BREATHING PATTERN. absent: Rales, Rhonchi, Wheezes - Cardiovascular Exam Cardiovascular Exam: REGULAR RHYTHM, +S1, +S2 - GI/Abdominal Exam GI & Abdominal Exam: Soft, Normal Bowel Sounds. absent: Distended, Firm, Tenderness - Extremities Exam Extremities Exam: Normal Inspection. absent: Calf Tenderness, Pedal Edema - Neurological Exam Neurological Exam: Alert, Awake, Oriented x3 Neuro motor strength exam: Left Upper Extremity: 0, Right Upper Extremity: 5, Left Lower Extremity: 0, Right Lower Extremity: 5 Additional comments: sensations decreased in left upper extremity, lower extremity and left side of her face - Psychiatric Exam Psychiatric exam: Normal Affect, Normal Mood - Skin Skin Exam: Intact, Normal Color Assessment and Plan - Assessment and Plan (Free Text) Assessment: Patient is a 63 yo female from [facility] who presented with sudden onset CHEN and L sided paralysis and paresthesia. She was found to have a large intracranial hemorrhage on CT. She is presently being managed in the ICU. Neurosurgery consul [place] further recommendations as by neurosurgeon Plan: Hemorrhagic stroke 05-18-18 CT head: Large intracerebral hematoma measuring approximately 2.1 x 5.4 cm at the right parieto- occipital region extending to the high convexity. Hematoma extends to the right lateral ventricle and occipital horn. Blood is seen with the interhemispheric talx. 05-18-18 CTA head and neck: unremarkable CT Angiograpy of the Brain 05-19-18 CT head: There is no change in the appearance of the intracerebral hematoma seen in the right parietal occipital lobe. Neurology consulted (Tay) ICU consulted (Sari) MRI brain w/ and w/o contrast pending Echo pending Hypertonic Saline 3% @ 30mls/hr BMP Q6H Accuchecks Q6H Tylenol 650 mg PO Q6H PRN Further intervention as per Dr. Jacobo (neurosurgery) Ppx GI ppx- Protonix 40mg IVP daily DVT ppx- Not indicated at this time <Noelle Penaloza - Last Filed: 05/27/18 08:53> Objective - Vital Signs/Intake and Output Vital Signs (last 24 hours): Temp Pulse Resp BP Pulse Ox 98 F 63 18 123/64 98 05/27/18 08:15 05/27/18 08:15 05/27/18 08:15 05/27/18 08:15 05/27/18 08:15 - Medications Medications: Current Medications Acetaminophen (Tylenol 325mg Tab) 650 mg PO Q6H PRN PRN Reason: Pain, moderate (4-7) Last Admin: 05/26/18 23:29 Dose: 650 mg Levetiracetam (Keppra 500mg Ivpb) 500 mg in 100 mls @ 400 mls/hr IVPB 0600,1800 [facility] Last Admin: 05/27/18 06:21 Dose: 400 mls/hr Metoclopramide HCl (Reglan) 10 mg IV ONCE PRN PRN Reason: Nausea/Vomiting Ondansetron HCl (Zofran Inj) 4 mg IVP Q4H PRN PRN Reason: Nausea/Vomiting Last Admin: 05/18/18 20:09 Dose: 4 mg Pantoprazole Sodium (Protonix Ec Tab) 40 mg PO 0600 [facility] Last Admin: 05/27/18 06:57 Dose: 40 mg Polyethylene Glycol (Miralax) 17 gm PO DAILY [facility] Last Admin: 05/26/18 09:33 Dose: Not Given - Labs Labs: 05/26/18 07:00 05/26/18 07:00 PT 12.8 SECONDS (9.4-12.5) H 05/18/18 15:15 INR 1.12 05/18/18 15:15 APTT 29.0 Seconds (25.1-36.5) 05/18/18 15:15 Attending/Attestation - Attestation I have personally seen and examined this patient.: Yes I have fully participated in the care of the patient.: Yes I have reviewed all pertinent clinical information, including history, physical exam and plan: Yes Notes (Text): 05/27/18 08:53 63 yrs old female with no PMH was admitted yesterday with headache and left sided weakness, found to have atypical bleed in the high right frontal lobe extending down with surrounding vasogenic edema. The area of hemorrhage appeared heterogeneous. She had several other areas of dural calcifications. There was some midline shift. Patient has been started on hypertonic saline/Mannitol and anti-seizure medication. Repeat CT head today is stable. N euro- surgery and Neurology is following
[2018-05-19 16:07] LABS: BLOOD UREA NITROGEN 9 mg/dL (7-21); CALCIUM 9.3 mg/dL (8.4-10.5); GFR NON-AFRICAN AMERICAN > 60
[2018-05-19] MEDS ORDERED: Sodium Chloride 3% 500 ML IV SCH (17:45)
--- NOTE | 2018-05-19 18:10 | CP.PCM.PN ---
Subjective - Date & Time of Evaluation Date of Evaluation: 05/19/18 Time of Evaluation: 18:07 - Subjective Subjective: Mrs. Cruz was seen and examined today in the ICU. She continues to have left side hemiplegia and anesthesia. There were no acute events overnight. Objective - Vital Signs/Intake and Output Vital Signs (last 24 hours): Temp Pulse Resp BP Pulse Ox 98.3 F 67 16 135/83 99 05/19/18 07:00 05/19/18 16:00 05/19/18 15:00 05/19/18 15:00 05/19/18 15:00 Intake and Output: 05/19/18 05/19/18 06:59 18:59 Output Total 400 Balance -400 - Medications Medications: Current Medications Acetaminophen (Tylenol 325mg Tab) 650 mg PO Q4 PRN PRN Reason: Pain, Mild (1-3) Levetiracetam (Keppra 500mg Ivpb) 500 mg in 100 mls @ 400 mls/hr IVPB 0600,1800 [facility] Last Admin: 05/19/18 17:27 Dose: 400 mls/hr Acetaminophen (Ofirmev) 1,000 mg in 100 mls @ 400 mls/hr IVPB Q6H PRN PRN Reason: Headache Stop: 05/20/18 22:41 Sodium Chloride (Hypertonic Saline 3%) 500 mls @ 15 mls/hr IV .Q24H [facility] Ondansetron HCl (Zofran Inj) 4 mg IVP Q4H PRN PRN Reason: Nausea/Vomiting Last Admin: 05/18/18 20:09 Dose: 4 mg Pantoprazole Sodium (Protonix Inj) 40 mg IVP DAILY [facility] Last Admin: 05/19/18 10:00 Dose: 40 mg - Labs Labs: 05/19/18 04:00 05/19/18 15:46 PT 12.8 SECONDS (9.4-12.5) H 05/18/18 15:15 INR 1.12 05/18/18 15:15 APTT 29.0 Seconds (25.1-36.5) 05/18/18 15:15 - Constitutional Appears: Non-toxic - Head Exam Head Exam: ATRAUMATIC, NORMAL INSPECTION, NORMOCEPHALIC - Eye Exam Eye Exam: EOMI, Normal appearance, PERRL - ENT Exam ENT Exam: Mucous Membranes Moist, Normal Exam - Neck Exam Neck Exam: Full ROM, Normal Inspection. absent: Lymphadenopathy - Respiratory Exam Respiratory Exam: Clear to Ausculation Bilateral, NORMAL BREATHING PATTERN - Cardiovascular Exam Cardiovascular Exam: REGULAR RHYTHM, +S1, +S2. absent: Murmur - Rectal Exam Rectal Exam: Deferred - Extremities Exam Extremities Exam: Full ROM, Normal Capillary Refill, Normal Inspection. absent: Joint Swelling, Pedal Edema - Neurological Exam Neurological Exam: Alert, Awake, CN II-XII Intact, Motor Sensory Deficit, Oriented x3 Neuro motor strength exam: Left Upper Extremity: 0, Right Upper Extremity: 5, Left Lower Extremity: 0, Right Lower Extremity: 5 Additional comments: Brisk reflexes on the left side. NIHSS is 10 Assessment and Plan (1) Intracerebral hemorrhage Assessment & Plan: Clinically not much change and review of non-contrast CT head showed that it is stable. The CTA does not demonstrate any major AVM or aneurysms. Continue maintaining serum sodium in 140-145 range. May cut down on the 3% to 15/hr and stop tomorrow if she is still clinically the same. Repeat non-contrast CT head in the AM. MRI/MRA of the brain can be done in 2 weeks. Critical care time spent: 35 mins. Status: Acute
[2018-05-19 22:46] LABS: BLOOD UREA NITROGEN 10 mg/dL (7-21); CALCIUM 9.2 mg/dL (8.4-10.5); GFR NON-AFRICAN AMERICAN > 60
[2018-05-20 04:29] LABS: BASO # 0.02 K/mm3 (0.0-2.0); BASO % 0.2 % (0.0-3.0); GRAN # 6.76 (1.4-6.5); GRAN % 68.2 % (50.0-68.0); HEMOGLOBIN 12.6 g/dL (12.0-16.0); LYMPH # 2.5 (1.2-3.4); LYMPH % 25.4 % (22.0-35.0); MEAN CORPUSCULAR HEMOGLOBIN 29.7 pg (25.0-35.0); MEAN CORPUSCULAR HGB CONC 33.8 g/dl (31.0-37.0); MEAN PLATELET VOLUME 10.2 fl (7.0-11.0); MONO # 0.6 (0.1-0.6); MONO % 6.2 % (1.0-6.0); RBC 4.24 10^6/uL (3.5-6.1); RED CELL DISTRIBUTION WIDTH 13.4 % (11.5-14.5); WHITE BLOOD COUNT 9.9 10^3/ul (4.5-11.0)
[2018-05-20 04:44] LABS: BLOOD UREA NITROGEN 9 mg/dL (7-21); CALCIUM 9.2 mg/dL (8.4-10.5); GFR NON-AFRICAN AMERICAN > 60
[2018-05-20] MEDS: levETIRAcetam 500mg IVPB 500 MG/100 ML BAG IVPB SCH ×2 (05:34→20:26)
--- NOTE | 2018-05-20 08:43 | CON ---
DATE: 05/19/2018 HISTORY OF PRESENT ILLNESS: This is an unfortunate 63-year-old lady with apparently no medical history, was presented to the ER yesterday afternoon with sudden onset of left hemiparesis. CT documented a right intracerebral hemorrhage. Interviewing her today, she really denies any past medical history. I very specifically interrogated on about hypertension, she states she in her [place] of [facility], has been receiving checkups to medical attention at least twice a year with no mention is made. PHYSICAL EXAMINATION: GENERAL: She is bright, awake, alert. She is fully oriented, responsive. Speech is completely appropriate and fluent in [place]. She follows all commands. HEENT: Pupils are equal and reactive. EOMs are full. Face is symmetric. NEUROLOGIC: She has excellent strength and function throughout the right side, but is unfortunately completely plegic in the left arm and leg. She does have fairly good sensation though and by report she did not have that on arrival yesterday. CT of the brain done yesterday and repeated today fortunately is unchanged. There is a moderate size intracerebral hemorrhage involving the posteromedial right frontal region. It does extend out in to the falx, may be somewhat of a subdural component there. There was actually only mild mass effect and there is very minimal if any midline shift and/or ventricular compression. Again, this is stable compared to yesterday. ASSESSMENT: I would certainly not recommend any neurosurgical intervention at this time. I certainly agree with the measures being undertaken which is tight blood pressure control, head of bed elevation and mild dehydration. I would suggest mobilization, physiotherapy and occupational therapy initiation. Obviously, suspicious for some underlying lesion, either a tumor or a vascular malformation. I would suggest MRI with Gadolinium and MRA in 2-3 weeks when the blood dissipates. Wale Jacobo MD
--- NOTE | 2018-05-20 09:00 | CP.PCM.PN ---
Objective - Vital Signs/Intake and Output Vital Signs (last 24 hours): Temp Pulse Resp BP Pulse Ox 98.3 F 75 14 127/59 L 96 05/19/18 07:00 05/19/18 22:00 05/19/18 18:00 05/19/18 18:00 05/19/18 18:00 Intake and Output: 05/20/18 05/20/18 06:59 18:59 Intake Total 250 Output Total 850 Balance -600 - Medications Medications: Current Medications Acetaminophen (Tylenol 325mg Tab) 650 mg PO Q4 PRN PRN Reason: Pain, Mild (1-3) Levetiracetam (Keppra 500mg Ivpb) 500 mg in 100 mls @ 400 mls/hr IVPB 0600,1800 [facility] Last Admin: 05/20/18 05:34 Dose: 400 mls/hr Acetaminophen (Ofirmev) 1,000 mg in 100 mls @ 400 mls/hr IVPB Q6H PRN PRN Reason: Headache Stop: 05/20/18 22:41 Last Admin: 05/20/18 00:07 Dose: 400 mls/hr Sodium Chloride (Hypertonic Saline 3%) 500 mls @ 15 mls/hr IV .Q24H [facility] Ondansetron HCl (Zofran Inj) 4 mg IVP Q4H PRN PRN Reason: Nausea/Vomiting Last Admin: 05/18/18 20:09 Dose: 4 mg Pantoprazole Sodium (Protonix Inj) 40 mg IVP DAILY [facility] Last Admin: 05/19/18 10:00 Dose: 40 mg - Labs Labs: 05/20/18 04:08 05/20/18 04:08 PT 12.8 SECONDS (9.4-12.5) H 05/18/18 15:15 INR 1.12 05/18/18 15:15 APTT 29.0 Seconds (25.1-36.5) 05/18/18 15:15
--- NOTE | 2018-05-20 09:08 | CP.PCM.PN ---
<Rachelle Torrez - Last Filed: 05/20/18 15:34> Subjective - Date & Time of Evaluation Date of Evaluation: 05/20/18 Time of Evaluation: 09:00 - Subjective Subjective: Rachelle Torrez, PGY2, Neurology Progress Note for Dr Cross: Patient seen and examined at bedside. No acute events overnight. Patient has continued left sided hemiplegia. Denies new focal weakness, blurry vision, fevers, chills, nausea, vomiting, headache. Objective - Vital Signs/Intake and Output Vital Signs (last 24 hours): Temp Pulse Resp BP Pulse Ox 98.3 F 75 14 127/59 L 96 05/19/18 07:00 05/19/18 22:00 05/19/18 18:00 05/19/18 18:00 05/19/18 18:00 Intake and Output: 05/20/18 05/20/18 06:59 18:59 Intake Total 250 Output Total 850 Balance -600 - Medications Medications: Current Medications Acetaminophen (Tylenol 325mg Tab) 650 mg PO Q4 PRN PRN Reason: Pain, Mild (1-3) Levetiracetam (Keppra 500mg Ivpb) 500 mg in 100 mls @ 400 mls/hr IVPB 0600,1800 [facility] Last Admin: 05/20/18 05:34 Dose: 400 mls/hr Acetaminophen (Ofirmev) 1,000 mg in 100 mls @ 400 mls/hr IVPB Q6H PRN PRN Reason: Headache Stop: 05/20/18 22:41 Last Admin: 05/20/18 00:07 Dose: 400 mls/hr Sodium Chloride (Hypertonic Saline 3%) 500 mls @ 15 mls/hr IV .Q24H [facility] Ondansetron HCl (Zofran Inj) 4 mg IVP Q4H PRN PRN Reason: Nausea/Vomiting Last Admin: 05/18/18 20:09 Dose: 4 mg Pantoprazole Sodium (Protonix Inj) 40 mg IVP DAILY [facility] Last Admin: 05/19/18 10:00 Dose: 40 mg - Labs Labs: 05/20/18 04:08 05/20/18 04:08 PT 12.8 SECONDS (9.4-12.5) H 05/18/18 15:15 INR 1.12 05/18/18 15:15 APTT 29.0 Seconds (25.1-36.5) 05/18/18 15:15 - Constitutional Appears: Non-toxic, No Acute Distress - Head Exam Head Exam: ATRAUMATIC, NORMOCEPHALIC - Eye Exam Eye Exam: EOMI, PERRL. absent: Conjunctival injection, Nystagmus, Scleral icterus Pupil Exam: NORMAL ACCOMODATION, PERRL. absent: Fixed, Irregular, Miosis, Mydriatic, Unequal - ENT Exam ENT Exam: Mucous Membranes Moist - Neck Exam Neck Exam: Full ROM - Respiratory Exam Respiratory Exam: Clear to Ausculation Bilateral, NORMAL BREATHING PATTERN. absent: Chest Wall Tenderness, Rales, Rhonchi, Wheezes, Respiratory Distress, Stridor - Cardiovascular Exam Cardiovascular Exam: RRR, +S1, +S2. absent: Murmur - GI/Abdominal Exam GI & Abdominal Exam: Soft, Normal Bowel Sounds. absent: Guarding, Rigid, Tenderness, Mass, Organomegaly, Rebound - Extremities Exam Extremities Exam: absent: Calf Tenderness, Pedal Edema - Back Exam Back Exam: NORMAL INSPECTION. absent: CVA tenderness (L), CVA tenderness (R) - Neurological Exam Neurological Exam: Alert, Awake, CN II-XII Intact, Oriented x3 Neuro motor strength exam: Left Upper Extremity: 0 (no sensation), Right Upper Extremity: 5 (sensation intact), Left Lower Extremity: 0 (sensation none), Right Lower Extremity: 5 (sensation intact) Additional comments: 3+/4 reflexes LUE and LLE 2+/4 reflexes RUE and RLE - Psychiatric Exam Psychiatric exam: Normal Affect, Normal Mood - Skin Skin Exam: Dry, Normal Color, Warm Assessment and Plan - Assessment and Plan (Free Text) Assessment: 63 year old female with PMH HTN, arthritis, on NSAIDs, presented with sudden onset of headache, left sided hemiplegia, found to have right large parieto- occipital lobe bleed: - CT head 05/18: Large intracerebral hematoma measuring approximately 2.1 x 5.4 cm at the right parieto- occipital region Hematoma extends to the right lateral ventricle and occipital horn. Blood is seen with the interhemispheric talx. - CTA head and neck 05/18: unremarkable - CT head 05/19: There is no change in the appearance of the intracerebral hem atoma seen in the right parietal occipital lobe. - repeat head CT this AM stable - Schedule MRi/MRA brain in 2 weeks to r/o AVM, underlying mass. - will consult Dr Feliz - off 3% NS - neuro checks - can be transferred out of ICU - monitor Case seen and discussed case with Dr Cross. <Nabor Cross - Last Filed: 05/21/18 19:21> Objective - Vital Signs/Intake and Output Vital Signs (last 24 hours): Temp Pulse Resp BP Pulse Ox 98.4 F 82 19 111/71 97 05/21/18 18:00 05/21/18 18:00 05/21/18 18:00 05/21/18 18:00 05/21/18 18:00 Intake and Output: 05/21/18 05/22/18 18:59 06:59 Intake Total 860 Balance 860 - Medications Medications: Current Medications Levetiracetam (Keppra 500mg Ivpb) 500 mg in 100 mls @ 400 mls/hr IVPB 0600,1800 [facility] Last Admin: 05/21/18 17:12 Dose: 400 mls/hr Ondansetron HCl (Zofran Inj) 4 mg IVP Q4H PRN PRN Reason: Nausea/Vomiting Last Admin: 05/18/18 20:09 Dose: 4 mg Pantoprazole Sodium (Protonix Inj) 40 mg IVP DAILY [facility] Last Admin: 05/21/18 09:59 Dose: 40 mg - Labs Labs: 05/21/18 05:30 05/21/18 05:30 PT 12.8 SECONDS (9.4-12.5) H 05/18/18 15:15 INR 1.12 05/18/18 15:15 APTT 29.0 Seconds (25.1-36.5) 05/18/18 15:15 Assessment and Plan (1) Intracerebral hemorrhage Status: Acute Attending/Attestation - Attestation I have personally seen and examined this patient.: Yes I have fully participated in the care of the patient.: Yes I have reviewed all pertinent clinical information, including history, physical exam and plan: Yes Notes (Text): 05/21/18 19:20 I agree with the assessment and plan. The patient is clinically stable and off of 3% hypertonic saline. The MRI of the brain with MRA of the brain can be done in 2-3 weeks again to rule out underlying lesions. However, diagnostic cerebral angiogram can be done sooner. Will discuss with neurointerventional.
[2018-05-20 10:19] LABS: BLOOD UREA NITROGEN 9 mg/dL (7-21); GFR NON-AFRICAN AMERICAN > 60
--- NOTE | 2018-05-20 12:29 | CP.CCUPN ---
<Glenn Gifford - Last Filed: 05/20/18 15:18> CCU Subjective - Physician Review Subjective (Free Text): Glenn Gifford DO, PGY-1 ICU Progress Note for Dr. Amezcua Patient was seen and examined at bedside this AM. She reports no new complaints and L-sided hemiparesis is unchanged. CCU Objective - Vital Signs / Intake & Output Vital Signs (Last 4 hours): Vital Signs Pulse Resp BP Pulse Ox 05/20/18 10:00 80 05/20/18 09:40 80 24 94 L 05/20/18 09:30 77 20 100 05/20/18 09:20 79 21 100 05/20/18 09:10 78 35 H 100 05/20/18 09:02 73 15 140/55 L 67 L 05/20/18 09:00 84 20 84 L 05/20/18 08:54 79 25 H 05/20/18 08:53 78 21 05/20/18 08:50 71 20 70 L 05/20/18 08:40 57 L 15 100 05/20/18 08:30 59 L 15 100 Intake and Output (Last 8hrs): Intake & Output 05/19/18 05/20/18 05/20/18 22:59 06:59 14:59 Intake Total 250 Output Total 850 Balance -600 Weight 155 lb 6.4 oz Intake: IV 250 Right Antecubital 250 Output: Urine 850 Urine, Voided 850 Stool 0 Other: # Voids Urine, Voided 3 - Physical Exam Head: Positive for: Atraumatic, Normocephalic Pupils: Positive for: PERRL Extroacular Muscles: Positive for: EOMI Conjunctiva: Positive for: Normal Mouth: Positive for: Moist Mucous Membranes Pharnyx: Positive for: Normal. Negative for: ERYTHEMA, EXUDATE Nose (Internal): Positive for: Normal Inspection Neck: Positive for: Normal Range of Motion. Negative for: JVD Respiratory/Chest: Positive for: Clear to Auscultation, Good Air Exchange. Negative for: Wheezes, Rales, Rhonchi Cardiovascular: Positive for: Regular Rate and Rhythm, Normal S1, S2. Negative for: Murmurs, Rub, Gallop Abdomen: Negative for: Tenderness, Rebound, Guarding Upper Extremity: Positive for: NORMAL PULSES. Negative for: Cyanosis, Edema Lower Extremity: Positive for: NORMAL PULSES. Negative for: Edema Neurological: Positive for: GCS=15, CN II-XII Intact, Speech Normal, Other (LLE and LUE 1/5 strength RLE and RUE 5/5 strength, LLE and LUE strength unchanged from prior exams) Skin: Positive for: Warm, Dry, Normal Color Psychiatric: Positive for: Alert, Oriented x 3 - Medications Active Medications: Active Medications Generic Name Dose Route Start Last Admin Trade Name Freq PRN Reason Stop Dose Admin Levetiracetam 500 mg in 100 mls @ 400 mls/hr 05/19/18 06:00 05/20/18 05:34 Keppra 500mg Ivpb IVPB 400 mls/hr 0600,1800 ALICE Administration Acetaminophen 1,000 mg in 100 mls @ 400 mls/hr 05/18/18 22:40 05/20/18 00:07 Ofirmev IVPB 05/20/18 22:41 400 mls/hr Q6H PRN Administration Headache Sodium Chloride 500 mls @ 15 mls/hr 05/19/18 17:45 05/20/18 09:26 Hypertonic Saline 3% IV 15 mls/hr .Q24H ALICE Administration Ondansetron HCl 4 mg 05/18/18 18:34 05/18/18 20:09 Zofran Inj IVP 4 mg Q4H PRN Administration Nausea/Vomiting Pantoprazole Sodium 40 mg 05/18/18 18:00 05/20/18 09:26 Protonix Inj IVP 40 mg DAILY ALICE Administration - Patient Studies Lab Studies: Microbiology Studies 05/18/18 19:00 MRSA Culture (Admit) - Final Naris MRSA NOT DETECTED Lab Studies 05/20/18 05/20/18 05/20/18 Range/Units 11:40 10:00 06:04 WBC (4.5-11.0) 10^3/ul RBC (3.5-6.1) 10^6/uL Hgb (12.0-16.0) g/dL Hct (36.0-48.0) % MCV (80.0-105.0) fl MCH (25.0-35.0) pg MCHC (31.0-37.0) g/dl RDW (11.5-14.5) % Plt Count (120.0-450.0) 10^3/uL MPV (7.0-11.0) fl Gran % (50.0-68.0) % Lymph % (Auto) (22.0-35.0) % [place] % (Auto) (1.0-6.0) % Eos % (Auto) (1.5-5.0) % Baso % (Auto) (0.0-3.0) % Gran # (1.4-6.5) Lymph # (Auto) (1.2-3.4) [place] # (Auto) (0.1-0.6) Eos # (Auto) (0.0-0.7) Baso # (Auto) (0.0-2.0) K/mm3 Sodium 142 (132-148) mmol/L Potassium 3.1 L (3.6-5.0) mmol/L Chloride 108 H (98-107) mmol/L Carbon Dioxide 24 (21-33) mmol/L Anion Gap 13 (10-20) BUN 9 (7-21) mg/dL Creatinine 0.5 L (0.7-1.2) mg/dl Est GFR ( Amer) > 60 Est GFR (Non-Af Amer) > 60 POC Glucose (mg/dL) 130 H 112 H (65-110) mg/dL Random Glucose 153 H (70-110) mg/dL Hemoglobin A1c (4.2-6.5) % Calcium 9.0 (8.4-10.5) mg/dL Phosphorus (2.5-4.5) mg/dL Magnesium (1.7-2.2) mg/dL 05/20/18 05/20/18 05/19/18 Range/Units 04:08 04:08 23:47 WBC 9.9 (4.5-11.0) 10^3/ul RBC 4.24 (3.5-6.1) 10^6/uL Hgb 12.6 (12.0-16.0) g/dL Hct 37.3 (36.0-48.0) % MCV 88.0 (80.0-105.0) fl MCH 29.7 (25.0-35.0) pg MCHC 33.8 (31.0-37.0) g/dl RDW 13.4 (11.5-14.5) % Plt Count 309 (120.0-450.0) 10^3/uL MPV 10.2 (7.0-11.0) fl Gran % 68.2 H (50.0-68.0) % Lymph % (Auto) 25.4 (22.0-35.0) % [place] % (Auto) 6.2 H (1.0-6.0) % Eos % (Auto) 0.0 L (1.5-5.0) % Baso % (Auto) 0.2 (0.0-3.0) % Gran # 6.76 H (1.4-6.5) Lymph # (Auto) 2.5 (1.2-3.4) [place] # (Auto) 0.6 (0.1-0.6) Eos # (Auto) 0.0 (0.0-0.7) Baso # (Auto) 0.02 (0.0-2.0) K/mm3 Sodium 142 (132-148) mmol/L Potassium 3.8 (3.6-5.0) mmol/L Chloride 109 H (98-107) mmol/L Carbon Dioxide 25 (21-33) mmol/L Anion Gap 12 (10-20) BUN 9 (7-21) mg/dL Creatinine 0.6 L (0.7-1.2) mg/dl Est GFR ( Amer) > 60 Est GFR (Non-Af Amer) > 60 POC Glucose (mg/dL) 105 (65-110) mg/dL Random Glucose 112 H (70-110) mg/dL Hemoglobin A1c (4.2-6.5) % Calcium 9.2 (8.4-10.5) mg/dL Phosphorus 3.6 (2.5-4.5) mg/dL Magnesium 2.2 (1.7-2.2) mg/dL 05/19/18 05/19/18 05/19/18 Range/Units 22:30 17:36 15:46 WBC (4.5-11.0) 10^3/ul RBC (3.5-6.1) 10^6/uL Hgb (12.0-16.0) g/dL Hct (36.0-48.0) % MCV (80.0-105.0) fl MCH (25.0-35.0) pg MCHC (31.0-37.0) g/dl RDW (11.5-14.5) % Plt Count (120.0-450.0) 10^3/uL MPV (7.0-11.0) fl Gran % (50.0-68.0) % Lymph % (Auto) (22.0-35.0) % [place] % (Auto) (1.0-6.0) % Eos % (Auto) (1.5-5.0) % Baso % (Auto) (0.0-3.0) % Gran # (1.4-6.5) Lymph # (Auto) (1.2-3.4) [place] # (Auto) (0.1-0.6) Eos # (Auto) (0.0-0.7) Baso # (Auto) (0.0-2.0) K/mm3 Sodium 142 142 (132-148) mmol/L Potassium 3.5 L 3.7 (3.6-5.0) mmol/L Chloride 109 H 108 H (98-107) mmol/L Carbon Dioxide 26 24 (21-33) mmol/L Anion Gap 11 13 (10-20) BUN 10 9 (7-21) mg/dL Creatinine 0.6 L 0.5 L (0.7-1.2) mg/dl Est GFR ( Amer) > 60 > 60 Est GFR (Non-Af Amer) > 60 > 60 POC Glucose (mg/dL) 109 (65-110) mg/dL Random Glucose 138 H 118 H (70-110) mg/dL Hemoglobin A1c (4.2-6.5) % Calcium 9.2 9.3 (8.4-10.5) mg/dL Phosphorus (2.5-4.5) mg/dL Magnesium (1.7-2.2) mg/dL 05/18/18 Range/Units 15:15 WBC (4.5-11.0) 10^3/ul RBC (3.5-6.1) 10^6/uL Hgb (12.0-16.0) g/dL Hct (36.0-48.0) % MCV (80.0-105.0) fl MCH (25.0-35.0) pg MCHC (31.0-37.0) g/dl RDW (11.5-14.5) % Plt Count (120.0-450.0) 10^3/uL MPV (7.0-11.0) fl Gran % (50.0-68.0) % Lymph % (Auto) (22.0-35.0) % [place] % (Auto) (1.0-6.0) % Eos % (Auto) (1.5-5.0) % Baso % (Auto) (0.0-3.0) % Gran # (1.4-6.5) Lymph # (Auto) (1.2-3.4) [place] # (Auto) (0.1-0.6) Eos # (Auto) (0.0-0.7) Baso # (Auto) (0.0-2.0) K/mm3 Sodium (132-148) mmol/L Potassium (3.6-5.0) mmol/L Chloride (98-107) mmol/L Carbon Dioxide (21-33) mmol/L Anion Gap (10-20) BUN (7-21) mg/dL Creatinine (0.7-1.2) mg/dl Est GFR ( Amer) Est GFR (Non-Af Amer) POC Glucose (mg/dL) (65-110) mg/dL Random Glucose (70-110) mg/dL Hemoglobin A1c 5.8 (4.2-6.5) % Calcium (8.4-10.5) mg/dL Phosphorus (2.5-4.5) mg/dL Magnesium (1.7-2.2) mg/dL Laboratory Results - last 24 hr 05/18/18 05/19/18 05/19/18 15:15 15:46 17:36 WBC RBC Hgb Hct MCV MCH MCHC RDW Plt Count MPV Gran % Lymph % (Auto) [place] % (Auto) Eos % (Auto) Baso % (Auto) Gran # Lymph # (Auto) [place] # (Auto) Eos # (Auto) Baso # (Auto) Sodium 142 Potassium 3.7 Chloride 108 H Carbon Dioxide 24 Anion Gap 13 BUN 9 Creatinine 0.5 L Est GFR ( Amer) > 60 Est GFR (Non-Af Amer) > 60 POC Glucose (mg/dL) 109 Random Glucose 118 H Hemoglobin A1c 5.8 Calcium 9.3 Phosphorus Magnesium 05/19/18 05/19/18 05/20/18 22:30 23:47 04:08 WBC RBC Hgb Hct MCV MCH MCHC RDW Plt Count MPV Gran % Lymph % (Auto) [place] % (Auto) Eos % (Auto) Baso % (Auto) Gran # Lymph # (Auto) [place] # (Auto) Eos # (Auto) Baso # (Auto) Sodium 142 142 Potassium 3.5 L 3.8 Chloride 109 H 109 H Carbon Dioxide 26 25 Anion Gap 11 12 BUN 10 9 Creatinine 0.6 L 0.6 L Est GFR ( Amer) > 60 > 60 Est GFR (Non-Af Amer) > 60 > 60 POC Glucose (mg/dL) 105 Random Glucose 138 H 112 H Hemoglobin A1c Calcium 9.2 9.2 Phosphorus 3.6 Magnesium 2.2 05/20/18 05/20/18 05/20/18 04:08 06:04 10:00 WBC 9.9 RBC 4.24 Hgb 12.6 Hct 37.3 MCV 88.0 MCH 29.7 MCHC 33.8 RDW 13.4 Plt Count 309 MPV 10.2 Gran % 68.2 H Lymph % (Auto) 25.4 [place] % (Auto) 6.2 H Eos % (Auto) 0.0 L Baso % (Auto) 0.2 Gran # 6.76 H Lymph # (Auto) 2.5 [place] # (Auto) 0.6 Eos # (Auto) 0.0 Baso # (Auto) 0.02 Sodium 142 Potassium 3.1 L Chloride 108 H Carbon Dioxide 24 Anion Gap 13 BUN 9 Creatinine 0.5 L Est GFR ( Amer) > 60 Est GFR (Non-Af Amer) > 60 POC Glucose (mg/dL) 112 H Random Glucose 153 H Hemoglobin A1c Calcium 9.0 Phosphorus Magnesium 05/20/18 11:40 WBC RBC Hgb Hct MCV MCH MCHC RDW Plt Count MPV Gran % Lymph % (Auto) [place] % (Auto) Eos % (Auto) Baso % (Auto) Gran # Lymph # (Auto) [place] # (Auto) Eos # (Auto) Baso # (Auto) Sodium Potassium Chloride Carbon Dioxide Anion Gap BUN Creatinine Est GFR ( Amer) Est GFR (Non-Af Amer) POC Glucose (mg/dL) 130 H Random Glucose Hemoglobin A1c Calcium Phosphorus Magnesium Fingerstick Blood Sugar Results: 113 Critical Care Progress Note - Nutrition Nutrition: Nutrition Category Date Time Status Heart Healthy Diet [DIET] Diets 05/19/18 Dinner Active Assessment/Plan - Assessment and Plan (Free Text) Assessment: 63 yo F with PMH of HTN presented to ED with sudden LLE and LUE weakness and fall found to have R sided intracranial hemorrhage on head CT. She was subsequently admitted to ICU for further management of intracranial hemorrhage. Plan: Neuro: Repeat CT head today show no increase in size of bleed Still A/o x 3, awake, alert, conversational LLE and LUE motor and sensory deficits unchanged from yesterday Neurosurgery evaluated this AM, no plan for surgical intervention at this time Per neurology recs, maintain Na level from 140-145 F/u neurology recs Cardio: RRR, normotensive, no signs of HD compromise Maintain MAP>65. Monitor for S/Sx, HD compromise Echo pending Pulm: No signs of respiratory distress. CTA B/L Patient is stating well on room air. Maintain O2 saturation>95%. O2 NC PRN GI: Per speech therapy, she is cleared for mechanical soft diet Protonix for GI PPX /Nephro: BUN/Cr stable UOP low overnight, continue to monitor Replete electrolytes as needed Maintain euvolemia Endocrine: Maintain euglycemia ID: Afebrile, no leukocytosis Heme/Onc: H/H stable No signs of HD compromise. Continue monitoring H/H DVT/GI PPX: Protonix, hold lovenox for concern of bleed, SCDs Full Code Transfer to med/surg Case and plan reviewed and discussed with my attending Dr. Goldie Gifford, DO IM Resident PGY-1 <Reagan Amezcua - Last Filed: 05/20/18 15:23> CCU Objective - Vital Signs / Intake & Output Intake and Output (Last 8hrs): Intake & Output 05/20/18 05/20/18 05/20/18 06:59 14:59 22:59 Intake Total 250 Output Total 850 Balance -600 Weight 155 lb 6.4 oz Intake: IV 250 Right Antecubital 250 Output: Urine 850 Urine, Voided 850 Stool 0 Other: # Voids Urine, Voided 3 - Medications Active Medications: Active Medications Generic Name Dose Route Start Last Admin Trade Name Freq PRN Reason Stop Dose Admin Levetiracetam 500 mg in 100 mls @ 400 mls/hr 05/19/18 06:00 05/20/18 05:34 Keppra 500mg Ivpb IVPB 400 mls/hr 0600,1800 ALICE Administration Acetaminophen 1,000 mg in 100 mls @ 400 mls/hr 05/18/18 22:40 05/20/18 00:07 Ofirmev IVPB 05/20/18 22:41 400 mls/hr Q6H PRN Administration Headache Sodium Chloride 500 mls @ 15 mls/hr 05/19/18 17:45 05/20/18 09:26 Hypertonic Saline 3% IV 15 mls/hr .Q24H ALICE Administration Ondansetron HCl 4 mg 05/18/18 18:34 05/18/18 20:09 Zofran Inj IVP 4 mg Q4H PRN Administration Nausea/Vomiting Pantoprazole Sodium 40 mg 05/18/18 18:00 05/20/18 09:26 Protonix Inj IVP 40 mg DAILY ALICE Administration - Patient Studies Lab Studies: Microbiology Studies 05/18/18 19:00 MRSA Culture (Admit) - Final [place]aris MRSA NOT DETECTED Lab Studies 05/20/18 05/20/18 05/20/18 Range/Units 11:40 10:00 06:04 WBC (4.5-11.0) 10^3/ul RBC (3.5-6.1) 10^6/uL Hgb (12.0-16.0) g/dL Hct (36.0-48.0) % MCV (80.0-105.0) fl MCH (25.0-35.0) pg MCHC (31.0-37.0) g/dl RDW (11.5-14.5) % Plt Count (120.0-450.0) 10^3/uL MPV (7.0-11.0) fl Gran % (50.0-68.0) % Lymph % (Auto) (22.0-35.0) % [place] % (Auto) (1.0-6.0) % Eos % (Auto) (1.5-5.0) % Baso % (Auto) (0.0-3.0) % Gran # (1.4-6.5) Lymph # (Auto) (1.2-3.4) [place] # (Auto) (0.1-0.6) Eos # (Auto) (0.0-0.7) Baso # (Auto) (0.0-2.0) K/mm3 Sodium 142 (132-148) mmol/L Potassium 3.1 L (3.6-5.0) mmol/L Chloride 108 H (98-107) mmol/L Carbon Dioxide 24 (21-33) mmol/L Anion Gap 13 (10-20) BUN 9 (7-21) mg/dL Creatinine 0.5 L (0.7-1.2) mg/dl Est GFR ( Amer) > 60 Est GFR (Non-Af Amer) > 60 POC Glucose (mg/dL) 130 H 112 H (65-110) mg/dL Random Glucose 153 H (70-110) mg/dL Hemoglobin A1c (4.2-6.5) % Calcium 9.0 (8.4-10.5) mg/dL Phosphorus (2.5-4.5) mg/dL Magnesium (1.7-2.2) mg/dL 05/20/18 05/20/18 05/19/18 Range/Units 04:08 04:08 23:47 WBC 9.9 (4.5-11.0) 10^3/ul RBC 4.24 (3.5-6.1) 10^6/uL Hgb 12.6 (12.0-16.0) g/dL Hct 37.3 (36.0-48.0) % MCV 88.0 (80.0-105.0) fl MCH 29.7 (25.0-35.0) pg MCHC 33.8 (31.0-37.0) g/dl RDW 13.4 (11.5-14.5) % Plt Count 309 (120.0-450.0) 10^3/uL MPV 10.2 (7.0-11.0) fl Gran % 68.2 H (50.0-68.0) % Lymph % (Auto) 25.4 (22.0-35.0) % [place] % (Auto) 6.2 H (1.0-6.0) % Eos % (Auto) 0.0 L (1.5-5.0) % Baso % (Auto) 0.2 (0.0-3.0) % Gran # 6.76 H (1.4-6.5) Lymph # (Auto) 2.5 (1.2-3.4) [place] # (Auto) 0.6 (0.1-0.6) Eos # (Auto) 0.0 (0.0-0.7) Baso # (Auto) 0.02 (0.0-2.0) K/mm3 Sodium 142 (132-148) mmol/L Potassium 3.8 (3.6-5.0) mmol/L Chloride 109 H (98-107) mmol/L Carbon Dioxide 25 (21-33) mmol/L Anion Gap 12 (10-20) BUN 9 (7-21) mg/dL Creatinine 0.6 L (0.7-1.2) mg/dl Est GFR ( Amer) > 60 Est GFR (Non-Af Amer) > 60 POC Glucose (mg/dL) 105 (65-110) mg/dL Random Glucose 112 H (70-110) mg/dL Hemoglobin A1c (4.2-6.5) % Calcium 9.2 (8.4-10.5) mg/dL Phosphorus 3.6 (2.5-4.5) mg/dL Magnesium 2.2 (1.7-2.2) mg/dL 05/19/18 05/19/18 05/19/18 Range/Units 22:30 17:36 15:46 WBC (4.5-11.0) 10^3/ul RBC (3.5-6.1) 10^6/uL Hgb (12.0-16.0) g/dL Hct (36.0-48.0) % MCV (80.0-105.0) fl MCH (25.0-35.0) pg MCHC (31.0-37.0) g/dl RDW (11.5-14.5) % Plt Count (120.0-450.0) 10^3/uL MPV (7.0-11.0) fl Gran % (50.0-68.0) % Lymph % (Auto) (22.0-35.0) % [place] % (Auto) (1.0-6.0) % Eos % (Auto) (1.5-5.0) % Baso % (Auto) (0.0-3.0) % Gran # (1.4-6.5) Lymph # (Auto) (1.2-3.4) [place] # (Auto) (0.1-0.6) Eos # (Auto) (0.0-0.7) Baso # (Auto) (0.0-2.0) K/mm3 Sodium 142 142 (132-148) mmol/L Potassium 3.5 L 3.7 (3.6-5.0) mmol/L Chloride 109 H 108 H (98-107) mmol/L Carbon Dioxide 26 24 (21-33) mmol/L Anion Gap 11 13 (10-20) BUN 10 9 (7-21) mg/dL Creatinine 0.6 L 0.5 L (0.7-1.2) mg/dl Est GFR ( Amer) > 60 > 60 Est GFR (Non-Af Amer) > 60 > 60 POC Glucose (mg/dL) 109 (65-110) mg/dL Random Glucose 138 H 118 H (70-110) mg/dL Hemoglobin A1c (4.2-6.5) % Calcium 9.2 9.3 (8.4-10.5) mg/dL Phosphorus (2.5-4.5) mg/dL Magnesium (1.7-2.2) mg/dL 05/18/18 Range/Units 15:15 WBC (4.5-11.0) 10^3/ul RBC (3.5-6.1) 10^6/uL Hgb (12.0-16.0) g/dL Hct (36.0-48.0) % MCV (80.0-105.0) fl MCH (25.0-35.0) pg MCHC (31.0-37.0) g/dl RDW (11.5-14.5) % Plt Count (120.0-450.0) 10^3/uL MPV (7.0-11.0) fl Gran % (50.0-68.0) % Lymph % (Auto) (22.0-35.0) % [place] % (Auto) (1.0-6.0) % Eos % (Auto) (1.5-5.0) % Baso % (Auto) (0.0-3.0) % Gran # (1.4-6.5) Lymph # (Auto) (1.2-3.4) [place] # (Auto) (0.1-0.6) Eos # (Auto) (0.0-0.7) Baso # (Auto) (0.0-2.0) K/mm3 Sodium (132-148) mmol/L Potassium (3.6-5.0) mmol/L Chloride (98-107) mmol/L Carbon Dioxide (21-33) mmol/L Anion Gap (10-20) BUN (7-21) mg/dL Creatinine (0.7-1.2) mg/dl Est GFR ( Amer) Est GFR (Non-Af Amer) POC Glucose (mg/dL) (65-110) mg/dL Random Glucose (70-110) mg/dL Hemoglobin A1c 5.8 (4.2-6.5) % Calcium (8.4-10.5) mg/dL Phosphorus (2.5-4.5) mg/dL Magnesium (1.7-2.2) mg/dL Laboratory Results - last 24 hr 05/18/18 05/19/18 05/19/18 15:15 15:46 17:36 WBC RBC Hgb Hct MCV MCH MCHC RDW Plt Count MPV Gran % Lymph % (Auto) [place] % (Auto) Eos % (Auto) Baso % (Auto) Gran # Lymph # (Auto) [place] # (Auto) Eos # (Auto) Baso # (Auto) Sodium 142 Potassium 3.7 Chloride 108 H Carbon Dioxide 24 Anion Gap 13 BUN 9 Creatinine 0.5 L Est GFR ( Amer) > 60 Est GFR (Non-Af Amer) > 60 POC Glucose (mg/dL) 109 Random Glucose 118 H Hemoglobin A1c 5.8 Calcium 9.3 Phosphorus Magnesium 05/19/18 05/19/18 05/20/18 22:30 23:47 04:08 WBC RBC Hgb Hct MCV MCH MCHC RDW Plt Count MPV Gran % Lymph % (Auto) [place] % (Auto) Eos % (Auto) Baso % (Auto) Gran # Lymph # (Auto) [place] # (Auto) Eos # (Auto) Baso # (Auto) Sodium 142 142 Potassium 3.5 L 3.8 Chloride 109 H 109 H Carbon Dioxide 26 25 Anion Gap 11 12 BUN 10 9 Creatinine 0.6 L 0.6 L Est GFR ( Amer) > 60 > 60 Est GFR (Non-Af Amer) > 60 > 60 POC Glucose (mg/dL) 105 Random Glucose 138 H 112 H Hemoglobin A1c Calcium 9.2 9.2 Phosphorus 3.6 Magnesium 2.2 05/20/18 05/20/18 05/20/18 04:08 06:04 10:00 WBC 9.9 RBC 4.24 Hgb 12.6 Hct 37.3 MCV 88.0 MCH 29.7 MCHC 33.8 RDW 13.4 Plt Count 309 MPV 10.2 Gran % 68.2 H Lymph % (Auto) 25.4 [place] % (Auto) 6.2 H Eos % (Auto) 0.0 L Baso % (Auto) 0.2 Gran # 6.76 H Lymph # (Auto) 2.5 [place] # (Auto) 0.6 Eos # (Auto) 0.0 Baso # (Auto) 0.02 Sodium 142 Potassium 3.1 L Chloride 108 H Carbon Dioxide 24 Anion Gap 13 BUN 9 Creatinine 0.5 L Est GFR ( Amer) > 60 Est GFR (Non-Af Amer) > 60 POC Glucose (mg/dL) 112 H Random Glucose 153 H Hemoglobin A1c Calcium 9.0 Phosphorus Magnesium 05/20/18 11:40 WBC RBC Hgb Hct MCV MCH MCHC RDW Plt Count MPV Gran % Lymph % (Auto) [place] % (Auto) Eos % (Auto) Baso % (Auto) Gran # Lymph # (Auto) [place] # (Auto) Eos # (Auto) Baso # (Auto) Sodium Potassium Chloride Carbon Dioxide Anion Gap BUN Creatinine Est GFR ( Amer) Est GFR (Non-Af Amer) POC Glucose (mg/dL) 130 H Random Glucose Hemoglobin A1c Calcium Phosphorus Magnesium Critical Care Progress Note - Nutrition Nutrition: Nutrition Category Date Time Status Heart Healthy Diet [DIET] Diets 05/19/18 Dinner Active Attending/Attestation - Attestation I have personally seen and examined this patient.: Yes I have fully participated in the care of the patient.: Yes I have reviewed all pertinent clinical information: Yes Notes (Text): 05/20/18 15:[address] Amezcua note
--- NOTE | 2018-05-20 12:42 | CT ---
Date of service: 05/20/2018 PROCEDURE: CT HEAD WITHOUT CONTRAST. HISTORY: f/u cerebral hemorrhage COMPARISON: 05/19/2018 TECHNIQUE: Axial computed tomography images were obtained through the head/brain without intravenous contrast. Radiation dose: Total exam DLP = mGy-cm. This CT exam was performed using one or more of the following dose reduction techniques: Automated exposure control, adjustment of the mA and/or kV according to patient size, and/or use of iterative reconstruction technique. FINDINGS: HEMORRHAGE: The right intracerebral hematoma is stable in size measuring 20 x 56 mm. The interhemispheric blood is also unchanged. BRAIN: No mass effect or edema. No atrophy or chronic microvascular ischemic changes. VENTRICLES: Unremarkable. No hydrocephalus. CALVARIUM: Unremarkable. PARANASAL SINUSES: Unremarkable as visualized. No significant inflammatory changes. MASTOID AIR CELLS: Unremarkable as visualized. No inflammatory changes. OTHER FINDINGS: None. IMPRESSION: The right intracerebral hematoma is stable in size measuring 20 x 56 mm. The interhemispheric blood is also unchanged.
--- NOTE | 2018-05-20 13:20 | CP.PCM.PN ---
Subjective - Date & Time of Evaluation Date of Evaluation: 05/20/18 Time of Evaluation: 07:30 - Subjective Subjective: PGY-1 Medicine Progress Note for Dr. Islas's service Patient seen and examined at bedside. Patient offers no acute complaints. Patient currently unable to move left upper and lower extremity unchanged from y esterday. Patient sensation decreased in the left upper and lower extremity and face. Patient denies headaches, fevers, chills, vision changes, chest pain, sob, n/v, constipation or diarrhea, weakness. Objective - Vital Signs/Intake and Output Vital Signs (last 24 hours): Temp Pulse Resp BP Pulse Ox 98.3 F 80 24 140/55 L 94 L 05/19/18 07:00 05/20/18 10:00 05/20/18 09:40 05/20/18 09:02 05/20/18 09:40 Intake and Output: 05/20/18 05/20/18 06:59 18:59 Intake Total 250 Output Total 850 Balance -600 - Medications Medications: Current Medications Levetiracetam (Keppra 500mg Ivpb) 500 mg in 100 mls @ 400 mls/hr IVPB 0600,1800 [facility] Last Admin: 05/20/18 05:34 Dose: 400 mls/hr Acetaminophen (Ofirmev) 1,000 mg in 100 mls @ 400 mls/hr IVPB Q6H PRN PRN Reason: Headache Stop: 05/20/18 22:41 Last Admin: 05/20/18 00:07 Dose: 400 mls/hr Sodium Chloride (Hypertonic Saline 3%) 500 mls @ 15 mls/hr IV .Q24H [facility] Last Admin: 05/20/18 09:26 Dose: 15 mls/hr Ondansetron HCl (Zofran Inj) 4 mg IVP Q4H PRN PRN Reason: Nausea/Vomiting Last Admin: 05/18/18 20:09 Dose: 4 mg Pantoprazole Sodium (Protonix Inj) 40 mg IVP DAILY [facility] Last Admin: 05/20/18 09:26 Dose: 40 mg - Labs Labs: 05/20/18 04:08 05/20/18 10:00 PT 12.8 SECONDS (9.4-12.5) H 05/18/18 15:15 INR 1.12 10/06/18 15:15 APTT 29.0 Seconds (25.1-36.5) 05/18/18 15:15 - Constitutional Appears: Non-toxic, No Acute Distress - Head Exam Head Exam: NORMAL INSPECTION, NORMOCEPHALIC - Eye Exam Eye Exam: EOMI, Normal appearance. absent: Nystagmus, Scleral icterus - ENT Exam ENT Exam: Mucous Membranes Moist - Respiratory Exam Respiratory Exam: Clear to Ausculation Bilateral, NORMAL BREATHING PATTERN. absent: Rales, Rhonchi, Wheezes - Cardiovascular Exam Cardiovascular Exam: REGULAR RHYTHM, +S1, +S2. absent: Tachycardia - GI/Abdominal Exam GI & Abdominal Exam: Soft, Normal Bowel Sounds. absent: Distended, Firm, Guarding, Tenderness - Neurological Exam Neurological Exam: Alert, Awake, Oriented x3 Neuro motor strength exam: Left Upper Extremity: 0, Right Upper Extremity: 5, Left Lower Extremity: 0, Right Lower Extremity: 5 Additional comments: sensations decreased in upper and lower extremity and face on left side. Decreased from right however patient able to feel light touch and pain on left side. - Psychiatric Exam Psychiatric exam: Normal Affect, Normal Mood - Skin Skin Exam: Intact, Normal Color Assessment and Plan - Assessment and Plan (Free Text) Assessment: Patient is a 63 yo female from [facility] who presented with sudden onset CHEN and L sided paralysis and paresthesia. She was found to have a large intracranial hemorrhage on CT. She is presently being managed in the ICU. Neurosurgery co nsulted further recommendations as by neurosurgeon. As per neurosurgeon no surgical intervention at this time. Plan: Hemorrhagic stroke 05-18-18 CT head: Large intracerebral hematoma measuring approximately 2.1 x 5.4 cm at the right parieto- occipital region extending to the high convexity. Hematoma extends to the right lateral ventricle and occipital horn. Blood is seen with the interhemispheric talx. 05-18-18 CTA head and neck: unremarkable CT Angiograpy of the Brain 05-19-18 CT head: There is no change in the appearance of the intracerebral hematoma seen in the right parietal occipital lobe. Neurology consulted- Dr. Cross- maintain sodium level of 140-145 ICU consulted- Dr. Guo- maintain MAP>65 MRI brain w/ and w/o contrast pending Echo pending Hypertonic Saline 3% @ 30mls/hr BMP Q6H Accuchecks Q6H Tylenol 650 mg PO Q6H PRN Further intervention as per Dr. Jacobo (neurosurgery)- no surgical intervention PT/OT for strength training Ppx GI ppx- Protonix 40mg IVP daily DVT ppx- Not indicated at this time
--- NOTE | 2018-05-20 15:21 | PN ---
DATE: 05/20/2018 SUBJECTIVE: The patient is seen and examined at bedside. She is comfortable. She talks full sentences. She is not in respiratory or otherwise distress. Night was uneventful. PHYSICAL EXAMINATION: VITAL SIGNS: Heart rate 59, oxygen saturation 100% on room air, respiratory rate 17, blood pressure 148/92. ENT: Head and neck atraumatic. LUNGS: Clear to auscultation bilaterally. HEART: Regular rate and rhythm. S1 and S2 normal. ABDOMEN: Soft, nontender and nondistended. MUSCULOSKELETAL: No C/C/E. NEURO: The patient has dense hemiparesis on the left side. SKIN: Moist. PSYCH: The patient is alert, awake and oriented x3. LABORATORY DATA: Sodium 142 (3% sodium chloride was stopped), potassium 3.1 (supplemented), chloride 108, carbon dioxide 24, BUN 9, creatinine 0.5, glucose 130. WBC 9.9, hemoglobin 12.6, platelet count 309. MEDICATIONS: Tylenol p.r.n. and IV, Keppra, Zofran p.r.n., Protonix, hypertonic saline 15 mL/hour. ASSESSMENT AND PLAN: This is a 63-year-old lady with intracranial bleed, who presented to Intensive Care Unit for acute management of hemorrhagic stroke. She was on hypertonic saline, which stopped now. Besides dense hemiparesis on the left side, she is surprisingly alert, awake, and in good spirit. She passed swallow evaluation. We are going to repeat her CT head today and if no progression, we will consider transferring her out to regular floor-->as discussed with neuro service. We will continue to target euvolemia, euglycemia, normothermia and oxygen saturation more than 90%. We will continue with deep venous thrombosis/gastrointestinal prophylaxis. Neurology followup. addendum: no bleed progression on CTH, ok to downgrade to stroke floor ccm time 40 min Reagan Amezcua MD MTDD
[2018-05-20 16:55] LABS: BLOOD UREA NITROGEN 9 mg/dL (7-21); CALCIUM 9.1 mg/dL (8.4-10.5); GFR NON-AFRICAN AMERICAN > 60
[2018-05-20] MEDS ORDERED: Gadodiamide 287 MG/ML VIAL (15ML) IV ONE (17:56)
--- NOTE | 2018-05-20 19:12 | CARD ---
APPROVED REPORT Date of service: 05/20/2018 EXAM: Two-dimensional and M-mode echocardiogram with Doppler and color Doppler. INDICATION CEREBRAL HEMORRHAGE/LVFX 2D DIMENSIONS Left Atrium (2D)3.7 (1.6-4.0cm)IVSd0.7 (0.7-1.1cm) LVDd4.1 (3.9-5.9cm)PWd0.8 (0.7-1.1cm) LVDs2.7 (2.5-4.0cm)FS (%) 34.6 % LVEF (%)64.3 (>50%) M-Mode DIMENSIONS Aortic Root2.90 (2.2-3.7cm)Aortic Cusp Exc.1.70 (1.5-2.0cm) Aortic Valve AoV Peak Mevpxzhm757.0cm/John Peak GR.10mmHgAI P 1/2 [id number] Mitral Valve MV E Rvvggczf32.8cm/sMV A Iahheeqp01.5cm/sE/A ratio1.2 TDI Lateral E' Peak V17.30cm/sMedial E' Peak V12.30cm/sE/Lateral E'5.5 E/Medial E'7.7 Pulmonary Valve PV Peak Qecvdsuj58.4cm/sPV Peak Grad.3mmHg Tricuspid Valve TR Peak Rzkrpnnt532qo/sRAP [id number] Peak Gr.28mmHg [id number] LEFT VENTRICLE The left ventricle is normal size. There is normal left ventricular wall thickness. The left ventricular function is normal.EF=65% There is normal LV segmental wall motion. The left ventricular diastolic function is normal. No left ventricle thrombus noted on this study. There is no ventricular septal defect visualized. There is no left ventricular aneurysm. There is no mass noted in the left ventricle. RIGHT VENTRICLE The right ventricle is normal size. There is normal right ventricular wall thickness. The right ventricular systolic function is normal. ATRIA The left atrium size is normal. The right atrium size is normal. The interatrial septum is intact with no evidence for an atrial septal defect. AORTIC VALVE The aortic valve is thickened but opens well. There is mild aortic regurgitation. There is no aortic valvular stenosis. There is no aortic valvular vegetation. MITRAL VALVE The mitral valve is thickened but opens well. Mitral regurgitation is mild. There is no mitral valve stenosis. There is no evidence of mitral valve prolapse. TRICUSPID VALVE The tricuspid valve leaflets are thickened , but open well. There is trace to mild tricuspid regurgitation.RVSP-38 mmof Hg. There is no tricuspid valve stenosis. There is no tricuspid valve prolapse or vegetation. PULMONIC VALVE The pulmonary valve is normal in structure. There is no pulmonic valvular regurgitation. There is no pulmonic valvular stenosis. GREAT VESSELS The aortic root is normal in size. The ascending aorta is normal in size. The pulmonary artery is normal. The IVC is normal in size and collapses >50% with inspiration. PERICARDIAL EFFUSION There is no pleural effusion. There is no pericardial effusion. <Conclusion> Normal chamber Size. EF-65%. There is mild aortic regurgitation. Mitral regurgitation is mild. There is trace to mild tricuspid regurgitation.RVSP-38 mmof Hg. No Vegetation or thrombus noted.
[2018-05-21] MEDS: levETIRAcetam 500mg IVPB 500 MG/100 ML BAG IVPB SCH ×2 (05:13→17:12)
[2018-05-21 06:35] LABS: BASO # 0.02 K/mm3 (0.0-2.0); BASO % 0.2 % (0.0-3.0); GRAN # 5.67 (1.4-6.5); GRAN % 65.1 % (50.0-68.0); HEMOGLOBIN 12.5 g/dL (12.0-16.0); LYMPH # 2.3 (1.2-3.4); LYMPH % 26.4 % (22.0-35.0); MEAN CELL VOLUME 86.8 fl (80.0-105.0); MEAN CORPUSCULAR HEMOGLOBIN 29.4 pg (25.0-35.0); MEAN CORPUSCULAR HGB CONC 33.9 g/dl (31.0-37.0); MEAN PLATELET VOLUME 10.9 fl (7.0-11.0); MONO # 0.7 (0.1-0.6); MONO % 8.3 % (1.0-6.0); RBC 4.25 10^6/uL (3.5-6.1); WHITE BLOOD COUNT 8.7 10^3/ul (4.5-11.0)
[2018-05-21 07:09] LABS: BLOOD UREA NITROGEN 8 mg/dL (7-21); CALCIUM 9.2 mg/dL (8.4-10.5); GFR NON-AFRICAN AMERICAN > 60
--- NOTE | 2018-05-21 12:45 | MRI ---
Date of service: 05/20/2018 PROCEDURE: MRI BRAIN WITH AND WITHOUT CONTRAST HISTORY: r/o mass COMPARISON: None available. TECHNIQUE: Multiplanar, multisequence MR images of the brain were obtained with and without intravenous contrast enhancement. 15 cc of Omniscan FINDINGS: HEMORRHAGE: There is a large acute hemorrhage in the right parietal lobe. This measures 65 mm AP by 30 mm height and 27 mm wide. This is composed of a mixture of acute and subacute blood products. There is also hemorrhage along the falx. There is a mild amount of surrounding vasogenic edema. DWI: No evidence of an acute or early subacute infarction. BRAIN PARENCHYMA: There is mild mass effect with effacement of the sulci and right lateral ventricle ENHANCEMENT: No abnormal intracranial enhancement. No evidence of vascular malformation or tumor VENTRICLES: Unremarkable. No hydrocephalus. CRANIUM: Unremarkable. ORBITS: Grossly unremarkable. PARANASAL SINUSES/MASTOIDS: Clear VASCULAR SYSTEM: Skull base flow voids intact. OTHER FINDINGS: The report concurs with the preliminary [facility] report. IMPRESSION: There is a large acute hemorrhage in the right parietal lobe. This measures 65 mm AP by 30 mm height and 27 mm wide. This is composed of a mixture of acute and subacute blood products. There is also hemorrhage along the falx. There is a mild amount of surrounding vasogenic edema.
--- NOTE | 2018-05-21 12:50 | CP.PCM.PN ---
<Rachelle Torrez - Last Filed: 05/21/18 15:37> Subjective - Date & Time of Evaluation Date of Evaluation: 05/21/18 Time of Evaluation: 12:44 - Subjective Subjective: Rachelle Torrez, PGY2, Neurology Progress Note for Dr Cross: Patient seen and examined at bedside. No acute events overnight. Patient AAOx4, denies new focal weakness, headache, blurry vision, nausea, vomiting. Objective - Vital Signs/Intake and Output Vital Signs (last 24 hours): Temp Pulse Resp BP Pulse Ox 98.2 F 60 19 149/74 95 05/21/18 08:42 05/21/18 08:42 05/21/18 08:42 05/21/18 08:42 05/21/18 08:42 - Medications Medications: Current Medications Levetiracetam (Keppra 500mg Ivpb) 500 mg in 100 mls @ 400 mls/hr IVPB 0600,1800 [facility] Last Admin: 05/21/18 05:13 Dose: 400 mls/hr Ondansetron HCl (Zofran Inj) 4 mg IVP Q4H PRN PRN Reason: Nausea/Vomiting Last Admin: 05/18/18 20:09 Dose: 4 mg Pantoprazole Sodium (Protonix Inj) 40 mg IVP DAILY [facility] Last Admin: 05/21/18 09:59 Dose: 40 mg - Labs Labs: 05/21/18 05:30 05/21/18 05:30 PT 12.8 SECONDS (9.4-12.5) H 05/18/18 15:15 INR 1.12 05/18/18 15:15 APTT 29.0 Seconds (25.1-36.5) 05/18/18 15:15 - Additional Findings Additional findings: - Constitutional Appears: Non-toxic, No Acute Distress - Head Exam Head Exam: ATRAUMATIC, NORMOCEPHALIC - Eye Exam Eye Exam: EOMI, PERRL. absent: Conjunctival injection, Nystagmus, Scleral icterus Pupil Exam: NORMAL ACCOMODATION, PERRL. absent: Fixed, Irregular, Miosis, Mydriatic, Unequal - ENT Exam ENT Exam: Mucous Membranes Moist - Neck Exam Neck Exam: Full ROM - Respiratory Exam Respiratory Exam: Clear to Ausculation Bilateral, NORMAL BREATHING PATTERN. absent: Chest Wall Tenderness, Rales, Rhonchi, Wheezes, Respiratory Distress, Stridor - Cardiovascular Exam Cardiovascular Exam: RRR, +S1, +S2. absent: Murmur - GI/Abdominal Exam GI & Abdominal Exam: Soft, Normal Bowel Sounds. absent: Guarding, Rigid, Tenderness, Mass, Organomegaly, Rebound - Extremities Exam Extremities Exam: absent: Calf Tenderness, Pedal Edema - Back Exam Back Exam: NORMAL INSPECTION. absent: CVA tenderness (L), CVA tenderness (R) - Neurological Exam Neurological Exam: Alert, Awake, CN II-XII Intact, Oriented x3 Neuro motor strength exam: Left Upper Extremity: 0 (no sensation), Right Upper Extremity: 5 (sensation intact), Left Lower Extremity: 0 (sensation none), Right Lower Extremity: 5 (sensation intact) Additional comments: 3+/4 reflexes LUE and LLE 2+/4 reflexes RUE and RLE Assessment and Plan - Assessment and Plan (Free Text) Assessment: 63 year old female with PMH HTN, arthritis, on NSAIDs, presented with sudden onset of headache, left sided hemiplegia, found to have right large parieto- occipital lobe bleed: - CT head 05/18: Large intracerebral hematoma measuring approximately 2.1 x 5.4 cm at the right parieto- occipital region Hematoma extends to the right lateral ventricle and occipital horn. Blood is seen with the interhemispheric talx. - CTA head and neck 05/18: unremarkable - CT head 05/19: There is no change in the appearance of the intracerebral hematoma seen in the right parietal occipital lobe. - repeat head CT 05/20 showed stable bleed. - MRI brain with IV contrast 05/20 showed large acute hemorrhage in right parietal lobe - 6.5 cm x3 cm x 2.7 cm, composed of s mixture of acute and subacute blood products. There is hemorrhage in the falx. Mild amount of surrounding vasogenic edema. No parenchymal mass. - Repeat Brain MRi/MRA in 2 weeks to r/o AVM, underlying mass. - F/u Dr Feliz's recs. - On keppra 500 IV BID - neuro checks, seizure precautions - monitor Discussed case with Dr Cross. <Nabor Cross - Last Filed: 05/21/18 19:19> Objective - Vital Signs/Intake and Output Vital Signs (last 24 hours): Temp Pulse Resp BP Pulse Ox 98.4 F 82 19 111/71 97 05/21/18 18:00 05/21/18 18:00 05/21/18 18:00 05/21/18 18:00 05/21/18 18:00 Intake and Output: 05/21/18 10 18:59 06:59 Intake Total 860 Balance 860 - Medications Medications: Current Medications Levetiracetam (Keppra 500mg Ivpb) 500 mg in 100 mls @ 400 mls/hr IVPB 0600,1800 [facility] Last Admin: 05/21/18 17:12 Dose: 400 mls/hr Ondansetron HCl (Zofran Inj) 4 mg IVP Q4H PRN PRN Reason: Nausea/Vomiting Last Admin: 05/18/18 20:09 Dose: 4 mg Pantoprazole Sodium (Protonix Inj) 40 mg IVP DAILY [facility] Last Admin: 05/21/18 09:59 Dose: 40 mg - Labs Labs: 05/21/18 05:30 05/21/18 05:30 PT 12.8 SECONDS (9.4-12.5) H 05/18/18 15:15 INR 1.12 05/18/18 15:15 APTT 29.0 Seconds (25.1-36.5) 05/18/18 15:15 Assessment and Plan (1) Intracerebral hemorrhage Status: Acute Attending/Attestation - Attestation I have personally seen and examined this patient.: Yes I have fully participated in the care of the patient.: Yes I have reviewed all pertinent clinical information, including history, physical exam and plan: Yes Notes (Text): 05/21/18 19:19 I agree with the assessment and plan. Will continue current medications and close observation with a plan for diagnostic cerebral angiogram tomorrow.
--- NOTE | 2018-05-21 15:57 | CP.PCM.PN ---
Subjective - Date & Time of Evaluation Date of Evaluation: 05/21/18 Time of Evaluation: 10:30 - Subjective Subjective: PGY-1 Medicine Progress Note for Dr. Islas's service Patient seen and examined at bedside. Patient offers no acute complaints. Patient currently unable to move left upper and lower extremity unchanged from y esterday. Patient sensation decreased in the left upper and lower extremity and face. Patient denies headaches, fevers, chills, vision changes, chest pain, sob, n/v, constipation or diarrhea, weakness. Objective - Vital Signs/Intake and Output Vital Signs (last 24 hours): Temp Pulse Resp BP Pulse Ox 98.2 F 60 19 149/74 95 05/21/18 08:42 05/21/18 08:42 05/21/18 08:42 05/21/18 08:42 05/21/18 08:42 - Medications Medications: Current Medications Levetiracetam (Keppra 500mg Ivpb) 500 mg in 100 mls @ 400 mls/hr IVPB 0600,1800 [facility] Last Admin: 05/21/18 05:13 Dose: 400 mls/hr Ondansetron HCl (Zofran Inj) 4 mg IVP Q4H PRN PRN Reason: Nausea/Vomiting Last Admin: 05/18/18 20:09 Dose: 4 mg Pantoprazole Sodium (Protonix Inj) 40 mg IVP DAILY [facility] Last Admin: 05/21/18 09:59 Dose: 40 mg - Labs Labs: 05/21/18 05:30 05/21/18 05:30 PT 12.8 SECONDS (9.4-12.5) H 05/18/18 15:15 INR 1.12 05/18/18 15:15 APTT 29.0 Seconds (25.1-36.5) 05/18/18 15:15 - Additional Findings Additional findings: - Constitutional Appears: Non-toxic, No Acute Distress - Head Exam Head Exam: NORMAL INSPECTION, NORMOCEPHALIC - Eye Exam Eye Exam: EOMI, Normal appearance. absent: Nystagmus, Scleral icterus - ENT Exam ENT Exam: Mucous Membranes Moist - Respiratory Exam Respiratory Exam: Clear to Ausculation Bilateral, NORMAL BREATHING PATTERN. absent: Rales, Rhonchi, Wheezes - Cardiovascular Exam Cardiovascular Exam: REGULAR RHYTHM, +S1, +S2. absent: Tachycardia - GI/Abdominal Exam GI & Abdominal Exam: Soft, Normal Bowel Sounds. absent: Distended, Firm, Guarding, Tenderness - Neurological Exam Neurological Exam: Alert, Awake, Oriented x3 Neuro motor strength exam: Left Upper Extremity: 0, Right Upper Extremity: 5, Left Lower Extremity: 0, Right Lower Extremity: 5 Additional comments: sensations decreased in upper and lower extremity and face on left side. Decreased from right however patient able to feel light touch and pain on left side. - Psychiatric Exam Psychiatric exam: Normal Affect, Normal Mood - Skin Skin Exam: Intact, Normal Color Assessment and Plan - Assessment and Plan (Free Text) Assessment: Patient is a 63 yo female from [facility] who presented with sudden onset CHEN and L sided paralysis and paresthesia. She was found to have a large intracranial hemorrhage on CT. She is presently being managed in the ICU. Neurosurgery consulted further recommendations as by neurosurgeon. As per neurosurgeon no surgical intervention at this time. Repeat MRI showed no acute changes from prior study. Plan: Hemorrhagic stroke 05-18-18 CT head: Large intracerebral hematoma measuring approximately 2.1 x 5.4 cm at the right parieto- occipital region extending to the high convexity. Hematoma extends to the right lateral ventricle and occipital horn. Blood is seen with the interhemispheric talx. 05-18-18 CTA head and neck: unremarkable CT Angiograpy of the Brain 05-19-18 CT head: There is no change in the appearance of the intracerebral hematoma seen in the right parietal occipital lobe. Neurology consulted- Dr. Cross- maintain sodium level of 140-145 Neursurgeon consulted- Dr. Jacobo/Malachi: no acute intervention necessary at this time MRI brain w/ and w/o contrast pending- unchanged from prior studies Echo - EF 64.3; mild AR; mild MR; no vegetation or thrombus noted PT/OT for strength training Ppx GI ppx- Protonix 40mg IVP daily DVT ppx- Not indicated at this time Dispo: Patient will require social work assistance as patient has no insurance and is from [facility]. Pending insurance approval for further PT/OT Medical Management discussed with Dr. Islas PGY-1 Rox Becker
[2018-05-22] MEDS: levETIRAcetam 500mg IVPB 500 MG/100 ML BAG IVPB SCH ×2 (05:06→20:01)
[2018-05-22 07:28] LABS: BASO # 0.04 K/mm3 (0.0-2.0); BASO % 0.4 % (0.0-3.0); EOS % 0.4 % (1.5-5.0); GRAN # 6.06 (1.4-6.5); GRAN % 66.6 % (50.0-68.0); HEMOGLOBIN 12.6 g/dL (12.0-16.0); LYMPH # 2.1 (1.2-3.4); LYMPH % 23.5 % (22.0-35.0); MEAN CORPUSCULAR HEMOGLOBIN 29.2 pg (25.0-35.0); MEAN CORPUSCULAR HGB CONC 33.2 g/dl (31.0-37.0); MONO # 0.8 (0.1-0.6); MONO % 9.1 % (1.0-6.0); RBC 4.32 10^6/uL (3.5-6.1); RED CELL DISTRIBUTION WIDTH 13.2 % (11.5-14.5); WHITE BLOOD COUNT 9.1 10^3/ul (4.5-11.0)
[2018-05-22 07:37] LABS: BLOOD UREA NITROGEN 10 mg/dL (7-21); CALCIUM 9.1 mg/dL (8.4-10.5); GFR NON-AFRICAN AMERICAN > 60
--- NOTE | 2018-05-22 13:17 | CP.PCM.PN ---
<Rox Becker - Last Filed: 05/22/18 14:47> Subjective - Date & Time of Evaluation Date of Evaluation: 05/22/18 Time of Evaluation: 10:30 - Subjective Subjective: PGY-1 Medicine Progress Note for Dr. Edge's service Patient seen and examined at bedside. Patient offers no acute complaints. Patient currently unable to move left upper. Patient has minimal lower extremity movement. Patient sensation decreased in the left upper and lower extremity and face. Patient denies headaches, fevers, chills, vision changes, chest pain, sob, n/v, constipation or diarrhea, weakness. Objective - Vital Signs/Intake and Output Vital Signs (last 24 hours): Temp Pulse Resp BP Pulse Ox 98.2 F 57 L 19 125/73 95 05/22/18 06:00 05/22/18 06:00 05/22/18 06:00 05/22/18 06:00 05/22/18 06:00 - Medications Medications: Current Medications Levetiracetam (Keppra 500mg Ivpb) 500 mg in 100 mls @ 400 mls/hr IVPB 0600,1800 [facility] Last Admin: 05/22/18 05:06 Dose: 400 mls/hr Ondansetron HCl (Zofran Inj) 4 mg IVP Q4H PRN PRN Reason: Nausea/Vomiting Last Admin: 05/18/18 20:09 Dose: 4 mg Pantoprazole Sodium (Protonix Inj) 40 mg IVP DAILY [facility] Last Admin: 05/22/18 09:30 Dose: 40 mg - Labs Labs: 05/22/18 06:50 05/22/18 06:50 PT 12.8 SECONDS (9.4-12.5) H 05/18/18 15:15 INR 1.12 05/18/18 15:15 APTT 29.0 Seconds (25.1-36.5) 05/18/18 15:15 - Additional Findings Additional findings: - Constitutional Appears: Non-toxic, No Acute Distress - Head Exam Head Exam: NORMAL INSPECTION, NORMOCEPHALIC - Eye Exam Eye Exam: EOMI, Normal appearance. absent: Nystagmus, Scleral icterus - ENT Exam ENT Exam: Mucous Membranes Moist - Respiratory Exam Respiratory Exam: Clear to Ausculation Bilateral, NORMAL BREATHING PATTERN. absent: Rales, Rhonchi, Wheezes - Cardiovascular Exam Cardiovascular Exam: REGULAR RHYTHM, +S1, +S2. absent: Tachycardia - GI/Abdominal Exam GI & Abdominal Exam: Soft, Normal Bowel Sounds. absent: Distended, Firm, Guarding, Tenderness - Neurological Exam Neurological Exam: Alert, Awake, Oriented x3 Neuro motor strength exam: Left Upper Extremity: 0, Right Upper Extremity: 5, Left Lower Extremity: 2, Right Lower Extremity: 5 Additional comments: sensations decreased in upper and lower extremity and face on left side. Decreased from right however patient able to feel light touch and pain on left side. - Psychiatric Exam Psychiatric exam: Normal Affect, Normal Mood - Skin Skin Exam: Intact, Normal Color Assessment and Plan - Assessment and Plan (Free Text) Assessment: Patient is a 63 yo female from [facility] who presented with sudden onset CHEN and L sided paralysis and paresthesia. She was found to have a large intracranial hemorrhage on CT. She is presently being managed in the ICU. Neurosurgery consulted further recommendations as by neurosurgeon. As per neurosurgeon no surgical intervention at this time. Repeat MRI showed no acute changes from prior study. Aggressive PT/OT required in hospital until patient approved for [facility] emergency department. Plan: Hemorrhagic stroke 05-18-18 CT head: Large intracerebral hematoma measuring approximately 2.1 x 5.4 cm at the right parieto- occipital region extending to the high convexity. Hematoma extends to the right lateral ventricle and occipital horn. Blood is seen with the interhemispheric talx. 05-18-18 CTA head and neck: unremarkable CT Angiograpy of the Brain 05-19-18 CT head: There is no change in the appearance of the intracerebral hematoma seen in the right parietal occipital lobe. Neurology consulted- Dr. Cross- maintain sodium level of 140-145; Keppra 500mg IVPB; Neursurgeon consulted- Dr. Jacobo/Malachi: no acute intervention necessary at this time MRI brain w/ and w/o contrast pending- unchanged from prior studies Echo - EF 64.3; mild AR; mild MR; no vegetation or thrombus noted PT/OT for strength training Ppx GI ppx- Protonix 40mg IVP daily DVT ppx- Not indicated at this time Dispo: Patient will require social work assistance as patient has no insurance and is from [facility]. Pending insurance approval for further PT/OT outpatient Medical Management discussed with Dr. Islas PGY-1 Rox Eugenio <Jarrell Edge - Last Filed: 05/22/18 16:54> Objective - Vital Signs/Intake and Output Vital Signs (last 24 hours): Temp Pulse Resp BP Pulse Ox 98.3 F 80 20 135/74 97 05/22/18 16:42 05/22/18 16:42 05/22/18 16:42 05/22/18 16:42 05/22/18 16:42 - Medications Medications: Current Medications Levetiracetam (Keppra 500mg Ivpb) 500 mg in 100 mls @ 400 mls/hr IVPB 0600,1800 [facility] Last Admin: 05/22/18 05:06 Dose: 400 mls/hr Ondansetron HCl (Zofran Inj) 4 mg IVP Q4H PRN PRN Reason: Nausea/Vomiting Last Admin: 05/18/18 20:09 Dose: 4 mg Pantoprazole Sodium (Protonix Inj) 40 mg IVP DAILY [facility] Last Admin: 05/22/18 09:30 Dose: 40 mg - Labs Labs: 05/22/18 06:50 05/22/18 06:50 PT 12.8 SECONDS (9.4-12.5) H 05/18/18 15:15 INR 1.12 05/18/18 15:15 APTT 29.0 Seconds (25.1-36.5) 05/18/18 15:15 Attending/Attestation - Attestation I have personally seen and examined this patient.: Yes I have fully participated in the care of the patient.: Yes I have reviewed all pertinent clinical information, including history, physical exam and plan: Yes Notes (Text): 05/22/18 16:50 63 year old female from [facility] who presented with left sided weakness. She was found to have large intracranial hemorrhage on CT scan. She was seen by neurosurgery and no acute surgical intervention was recommended. She was seen by neurology and started on keppra. Repeat CT head and MRI study showed no acute changes. PT is following. Plan is for diagnostic cerebral angiogram tomorrow per neurology. Patient may benefit from rehab therapy; will follow up with social services director and case assembler. Jarrell Edge MD Hospitalist.
--- NOTE | 2018-05-22 14:45 | CP.PCM.PN ---
<Rachelle Torrez - Last Filed: 05/22/18 14:41> Subjective - Date & Time of Evaluation Date of Evaluation: 05/22/18 Time of Evaluation: 14:41 - Subjective Subjective: Rachelle Torrez, PGY2, Neurology Progress Note for Dr Cross: Patient seen and examined at bedside. No acute events overnight. Patient AAOx4, patient states that she can now move her left leg. Denies new focal weakness, headache, blurry vision, nausea, vomiting. Objective - Vital Signs/Intake and Output Vital Signs (last 24 hours): Temp Pulse Resp BP Pulse Ox 98.2 F 57 L 19 125/73 95 05/22/18 06:00 05/22/18 06:00 05/22/18 06:00 05/22/18 06:00 05/22/18 06:00 - Medications Medications: Current Medications Levetiracetam (Keppra 500mg Ivpb) 500 mg in 100 mls @ 400 mls/hr IVPB 0600,1800 [facility] Last Admin: 05/22/18 05:06 Dose: 400 mls/hr Ondansetron HCl (Zofran Inj) 4 mg IVP Q4H PRN PRN Reason: Nausea/Vomiting Last Admin: 05/18/18 20:09 Dose: 4 mg Pantoprazole Sodium (Protonix Inj) 40 mg IVP DAILY [facility] Last Admin: 05/22/18 09:30 Dose: 40 mg - Labs Labs: 05/22/18 06:50 05/22/18 06:50 PT 12.8 SECONDS (9.4-12.5) H 05/18/18 15:15 INR 1.12 05/18/18 15:15 APTT 29.0 Seconds (25.1-36.5) 05/18/18 15:15 - Additional Findings Additional findings: - Constitutional Appears: Non-toxic, No Acute Distress - Head Exam Head Exam: ATRAUMATIC, NORMOCEPHALIC - Eye Exam Eye Exam: EOMI, PERRL. absent: Conjunctival injection, Nystagmus, Scleral icterus Pupil Exam: NORMAL ACCOMODATION, PERRL. absent: Fixed, Irregular, Miosis, Mydriatic, Unequal - ENT Exam ENT Exam: Mucous Membranes Moist - Neck Exam Neck Exam: Full ROM - Respiratory Exam Respiratory Exam: Clear to Ausculation Bilateral, NORMAL BREATHING PATTERN. absent: Chest Wall Tenderness, Rales, Rhonchi, Wheezes, Respiratory Distress, Stridor - Cardiovascular Exam Cardiovascular Exam: RRR, +S1, +S2. absent: Murmur - GI/Abdominal Exam GI & Abdominal Exam: Soft, Normal Bowel Sounds. absent: Guarding, Rigid, Tenderness, Mass, Organomegaly, Rebound - Extremities Exam Extremities Exam: absent: Calf Tenderness, Pedal Edema - Back Exam Back Exam: NORMAL INSPECTION. absent: CVA tenderness (L), CVA tenderness (R) - Neurological Exam Neurological Exam: Alert, Awake, CN II-XII Intact, Oriented x3. Moving LLE today Neuro motor strength exam: Left Upper Extremity: 0 (no sensation), Right Upper Extremity: 5 (sensation intact), Left Lower Extremity: 1 (sensation none), Right Lower Extremity: 5 (sensation intact) Additional comments: 3+/4 reflexes LUE and LLE 2+/4 reflexes RUE and RLE Assessment and Plan - Assessment and Plan (Free Text) Assessment: 63 year old female with PMH HTN, arthritis, on NSAIDs, presented with sudden onset of headache, left sided hemiplegia, found to have right large parieto- occipital lobe bleed: - CT head 05/18: Large intracerebral hematoma measuring approximately 2.1 x 5.4 cm at the right parieto- occipital region Hematoma extends to the right lateral ventricle and occipital horn. Blood is seen with the interhemispheric talx. - CTA head and neck 05/18: unremarkable - CT head 05/19: There is no change in the appearance of the intracerebral hematoma seen in the right parietal occipital lobe. - repeat head CT 05/20 showed stable bleed. - MRI brain with IV contrast 05/20 showed large acute hemorrhage in right parietal lobe - 6.5 cm x3 cm x 2.7 cm, composed of s mixture of acute and subacute blood products. There is hemorrhage in the falx. Mild amount of surrounding vasogenic edema. No parenchymal mass. - Repeat Brain MRi/MRA in 2 weeks to r/o AVM, underlying mass. - Patient scheduled for diagnostic cerebral angiogram tomorrow with Dr Atwood. NPO after midnight. - On keppra 500 IV BID - neuro checks, seizure precautions - monitor Discussed case with Dr Cross. <Nabor Cross - Last Filed: 05/27/18 19:38> Objective - Vital Signs/Intake and Output Vital Signs (last 24 hours): Temp Pulse Resp BP Pulse Ox 99.3 F 79 19 119/61 97 05/27/18 16:36 05/27/18 16:36 05/27/18 16:36 05/27/18 16:36 05/27/18 16:36 Intake and Output: 05/27/18 05/28/18 18:59 06:59 Intake Total 1020 Output Total 1200 Balance -180 - Medications Medications: Current Medications Acetaminophen (Tylenol 325mg Tab) 650 mg PO Q6H PRN PRN Reason: Pain, moderate (4-7) Last Admin: 05/26/18 23:29 Dose: 650 mg Levetiracetam (Keppra 500mg Ivpb) 500 mg in 100 mls @ 400 mls/hr IVPB 0600,1800 [facility] Last Admin: 05/27/18 18:16 Dose: 400 mls/hr Ondansetron HCl (Zofran Inj) 4 mg IVP Q4H PRN PRN Reason: Nausea/Vomiting Last Admin: 05/18/18 20:09 Dose: 4 mg Pantoprazole Sodium (Protonix Ec Tab) 40 mg PO 0600 [facility] Last Admin: 05/27/18 06:57 Dose: 40 mg Polyethylene Glycol (Miralax) 17 gm PO DAILY [facility] Last Admin: 05/27/18 09:50 Dose: Not Given - Labs Labs: 05/27/18 08:55 05/27/18 07:30 PT 12.8 SECONDS (9.4-12.5) H 05/18/18 15:15 INR 1.12 05/18/18 15:15 APTT 29.0 Seconds (25.1-36.5) 05/18/18 15:15 Assessment and Plan (1) Intracerebral hemorrhage Status: Acute Attending/Attestation - Attestation I have personally seen and examined this patient.: Yes I have fully participated in the care of the patient.: Yes I have reviewed all pertinent clinical information, including history, physical exam and plan: Yes Notes (Text): 05/27/18 19:38 I agree with the assessment and plan. Will follow up after angiogram.
[2018-05-23] MEDS: levETIRAcetam 500mg IVPB 500 MG/100 ML BAG IVPB SCH ×2 (05:31→20:46)
[2018-05-23 08:45] LABS: BASO # 0.03 K/mm3 (0.0-2.0); BASO % 0.3 % (0.0-3.0); EOS # 0.2 (0.0-0.7); EOS % 1.8 % (1.5-5.0); GRAN # 5.77 (1.4-6.5); GRAN % 66.8 % (50.0-68.0); HEMOGLOBIN 12.3 g/dL (12.0-16.0); LYMPH % 23.4 % (22.0-35.0); MEAN CELL VOLUME 87.4 fl (80.0-105.0); MEAN CORPUSCULAR HEMOGLOBIN 29.2 pg (25.0-35.0); MEAN CORPUSCULAR HGB CONC 33.4 g/dl (31.0-37.0); MEAN PLATELET VOLUME 10.1 fl (7.0-11.0); MONO # 0.7 (0.1-0.6); MONO % 7.7 % (1.0-6.0); RBC 4.21 10^6/uL (3.5-6.1); WHITE BLOOD COUNT 8.7 10^3/ul (4.5-11.0)
[2018-05-23 08:57] LABS: BLOOD UREA NITROGEN 10 mg/dL (7-21); GFR NON-AFRICAN AMERICAN > 60
--- NOTE | 2018-05-23 10:38 | CP.PCM.CON ---
History of Present Illness - History of Present Illness History of Present Illness: This is a 63-year-old woman with no significant past medical history presented with an acute onset of headache and left-sided weakness on initial evaluation a CT scan was performed demonstrating a right hi frontal parietal parenchymal hematoma measuring 5.3cm x 2.6cm. current workup including a CT/CT angiogram and MRI were performed demonstrating no underlying reason for the hematoma. The location of the hematoma is unusual for hypertensive bleeds before and angiogram was requested by neurology for further evaluation Review of Systems - Review of Systems All systems: reviewed and no additional remarkable complaints except - Constitutional Constitutional: absent: As Per HPI, Anorexia, Chills, Daytime Sleepiness, Ex cessive Sweating, Fatigue, Fever, Frequent Falls, Headache, Increased Appetite, Lethargy, Malaise, Night Sweats, Snoring, Sleep Apnea, Weight Gain, Weight Loss, Weakness, Other - Cardiovascular Cardiovascular: absent: As Per HPI, Acrocyanosis, Chest Pain, Chest Pain at Rest, Chest Pain with Activity, Claudication, Diaphoresis, Dyspnea, Dyspnea on Exertion, Edema, Irregular Heart Rhythm, Pain Radiating to Arm/Neck/Jaw, Leg Edema, Leg Ulcers, Lightheadedness, Orthopnea, Palpitations, Paroxysmal Nocturnal Dyspnea, Pedal Edema, Radiating Pain, Rapid Heart Rate, Slow Heart Rate, Syncope, Other - Respiratory Respiratory: absent: As Per HPI, Cough, Dyspnea, Hemoptysis, Dyspnea on Exertion, Wheezing, Snoring, Stridor, Pain on Inspiration, Chest Congestion, Excessive Mucous Production, Change in Mucous Color, Pain with Coughing, Other - Neurological Neurological: As Per HPI - Endocrine Endocrine: absent: As Per HPI, Change in Body Appearance, Change in Libido, Cold Intolorance, Deepening of Voice, Excessive Sweating, Fatigue, Flushing, Heat Intolorance, Increase in Ring/Shoe/Hat Size, Palpitations, Polydipsia, Polyphagia, Polyuria, Other - Hematologic/Lymphatic Hematologic: absent: As Per HPI, Easy Bleeding, Easy Bruising, Lymphadenopathy, Other Past Patient History - Tetanus Immunizations Tetanus Immunization: Unknown - Past Medical History & Family History Past Medical History?: Yes - Past Social History Smoking Status: Never Smoked - CARDIAC Hx Cardiac Disorders: Yes (varicose veins) Hx Hypertension: Yes - PULMONARY Hx Respiratory Disorders: No - NEUROLOGICAL Hx Neurological Disorder: Yes HX Cerebrovascular Accident: Yes (today 05/18/18) Other/Comment: left side paralysis - HEENT Hx HEENT Problems: Yes (eyeglasses) - RENAL Hx Chronic Kidney Disease: No - ENDOCRINE/METABOLIC Hx Endocrine Disorders: No - HEMATOLOGICAL/ONCOLOGICAL Hx Blood Disorders: No - INTEGUMENTARY Hx Dermatological Problems: No - MUSCULOSKELETAL/RHEUMATOLOGICAL Hx Musculoskeletal Disorders: Yes Hx Falls: Yes (fell today when left side gave out) Other/Comment: left side paralysis today cva 05/18/18 - GASTROINTESTINAL Hx Gastrointestinal Disorders: No - GENITOURINARY/GYNECOLOGICAL Hx Genitourinary Disorders: No - PSYCHIATRIC Hx Substance Use: No - SURGICAL HISTORY Other/Comment: R foot surgery - ANESTHESIA Hx Anesthesia Reactions: No Hx Malignant Hyperthermia: No Meds Allergies/Adverse Reactions: Allergies Allergy/AdvReac Type Severity Reaction Status Date / Time No Known Allergies Allergy Verified 05/18/18 15:04 - Medications Medications: Current Medications Levetiracetam (Keppra 500mg Ivpb) 500 mg in 100 mls @ 400 mls/hr IVPB 0600,1800 [facility] Last Admin: 05/23/18 05:31 Dose: 400 mls/hr Ondansetron HCl (Zofran Inj) 4 mg IVP Q4H PRN PRN Reason: Nausea/Vomiting Last Admin: 05/18/18 20:09 Dose: 4 mg Pantoprazole Sodium (Protonix Inj) 40 mg IVP DAILY [facility] Last Admin: 05/23/18 10:23 Dose: 40 mg Physical Exam - Expanded Neurological Exam Expanded Patient oriented to: person, place, time Cranial nerves: EOM's Intact: Normal, Facial Palsey w/Forehead Movement: Abnormal Right, Gag Reflex: Normal, Nystagmus: Normal, Tongue Deviation: Normal Ataxia: No Cerebellar Function: Finger to Nose: Abnormal Left Upper motor neuron: Babinski Sign: Abnormal Left, Jeremy Neglect: Normal, Sensory Extinction: Abnormal Left Sensory exam: Lower Extremity Light Touch: Abnormal Left, Upper Extremity Light Touch: Abnormal Left Neuro motor strength exam: Left Upper Extremity: 0, Right Upper Extremity: 5, Left Lower Extremity: 3, Right Lower Extremity: 5 Results - Vital Signs Recent Vital Signs: Last Vital Signs Temp 98 F 05/23/18 08:22 Pulse 73 05/23/18 08:22 Resp 19 05/23/18 08:22 BP 120/72 10/11/18 08:22 Pulse Ox 98 05/23/18 08:22 - Labs Result Diagrams: 05/23/18 08:30 05/23/18 08:30 Labs: Laboratory Results - last 24 hr 05/22/18 05/22/18 05/22/18 11:17 15:38 21:30 WBC RBC Hgb Hct MCV MCH MCHC RDW Plt Count MPV Gran % Lymph % (Auto) [place] % (Auto) Eos % (Auto) Baso % (Auto) Gran # Lymph # (Auto) [place] # (Auto) Eos # (Auto) Baso # (Auto) Sodium Potassium Chloride Carbon Dioxide Anion Gap BUN Creatinine Est GFR ( Amer) Est GFR (Non-Af Amer) POC Glucose (mg/dL) 135 H 111 H 138 H Random Glucose Calcium 05/23/18 05/23/18 05/23/18 07:22 08:30 08:30 WBC 8.7 RBC 4.21 Hgb 12.3 Hct 36.8 MCV 87.4 MCH 29.2 MCHC 33.4 RDW 13.0 Plt Count 278 MPV 10.1 Gran % 66.8 Lymph % (Auto) 23.4 [place] % (Auto) 7.7 H Eos % (Auto) 1.8 Baso % (Auto) 0.3 Gran # 5.77 Lymph # (Auto) 2.0 [place] # (Auto) 0.7 H Eos # (Auto) 0.2 Baso # (Auto) 0.03 Sodium 139 Potassium 4.0 Chloride 102 Carbon Dioxide 29 Anion Gap 12 BUN 10 Creatinine 0.6 L Est GFR ( Amer) > 60 Est GFR (Non-Af Amer) > 60 POC Glucose (mg/dL) 88 Random Glucose 107 Calcium 9.0 - Imaging and Cardiology MRI - head Status: Image reviewed by me CT scan - head Status: Image reviewed by me (no obvious etiology of hemmorhage ) Assessment & Plan (1) Intracerebral hemorrhage Assessment and Plan: Work up so far negative for etiology Plan for cerebral angiogram to evaluate for vasculitis and or avm or dural fistula Risk benefits and alternatives discussed with patient using a chemical economist in chinese and she agrees to the procedure after I discussed the nature of the procedure as well as the potential risks and benefits Status: Acute
[2018-05-23] MEDS ORDERED: Lidocaine 2% PF (10 ml) Amp ONE (14:02)
[2018-05-23] MEDS ORDERED: Iodixanol 320 mg/ml 150 ml Bottle IV ONE (14:02)
[2018-05-23] MEDS ORDERED: Iodixanol 320 MG/ML 200 ML BOTTLE IV ONE (14:02)
[2018-05-23] MEDS ORDERED: Midazolam 2 MG/2 ML VIAL ONE (14:18)
--- NOTE | 2018-05-23 14:27 | PCM.IRPREO ---
Pre Procedure Note - History Proposed Procedure: Diagnostic Cerebral Angiogram Pre-Op Diagnosis: Right high frontal parietal parenchymal hematoma measuring 5.3cmx2.6cm - Previous Medical/Surgical History Cardiac: Hypertension Neuro: TIA/CVA (CVA 05/18/18) Misc: Other (h/o easy bruising) Pain: 0. No Pain - Pre Procedure Were any radiologic studies performed in the last 12 months: Yes List of radiologic studies performed: On 05/18/18 CT/CT angiogram, MRI head Was medical management performed in the past 24 months: Yes List of medical management performed: evaluation of etiology. mri and CTA Clinical indication for the procedure: Intracranial hemorrhage Have risks and benefits been explained to the patient: Yes Risks and benefits been explained to the patient: Informed consent was obtained for the procedure after discussing the potential risks and benefits of the procedure. Potential risk such as vascular injury, vascular occlusion, further stroke, intracranial hemorrhage and even were discussed. After all the questions were answered by with greenlandic translaton, patient gave the informed consent. Have alternatives to surgery explained to the patient as applicable: Yes - Allergies Allergies: Allergies No Known Allergies Allergy (Verified 05/18/18 15:04) - Physical Exam Vital Signs: Vital Signs 05/23/18 05/23/18 08:22 14:05 Temperature 98 F Pulse Rate 73 91 H Respiratory 19 Rate Blood Pressure 120/72 O2 Sat by Pulse 98 97 Oximetry Mental Status: Alert & Oriented x3 Neuro: Other (left upper and lower extremity paralysis ; Alert and oriented x3) Heart: WNL Lungs: WNL - Impression Impression: acute intracranial hemorrhage - Date & Time Date: 05/23/18 Time: 14:35
--- NOTE | 2018-05-23 15:06 | CP.PCM.PN ---
<Rox Becker - Last Filed: 05/23/18 15:03> Subjective - Date & Time of Evaluation Date of Evaluation: 05/23/18 Time of Evaluation: 10:15 - Subjective Subjective: PGY-1 Medicine Progress Note for Dr. Edge's service Patient seen and examined at bedside. Patient offers no acute complaints. Patient currently unable to move left upper. Patient has minimal lower extremity movement. Patient sensation decreased in the left upper and lower extremity and face. Patient denies headaches, fevers, chills, vision changes, chest pain, sob, n/v, constipation or diarrhea, weakness. Objective - Vital Signs/Intake and Output Vital Signs (last 24 hours): Temp Pulse Resp BP Pulse Ox 98 F 91 H 19 120/72 97 05/23/18 08:22 05/23/18 14:05 05/23/18 08:22 05/23/18 08:22 05/23/18 14:05 Intake and Output: 05/23/18 05/23/18 06:59 18:59 Intake Total 1320 Output Total 1700 Balance -380 - Medications Medications: Current Medications Levetiracetam (Keppra 500mg Ivpb) 500 mg in 100 mls @ 400 mls/hr IVPB 0600,1800 [facility] Last Admin: 05/23/18 05:31 Dose: 400 mls/hr Ondansetron HCl (Zofran Inj) 4 mg IVP Q4H PRN PRN Reason: Nausea/Vomiting Last Admin: 05/18/18 20:09 Dose: 4 mg Pantoprazole Sodium (Protonix Inj) 40 mg IVP DAILY [facility] Last Admin: 05/23/18 10:23 Dose: 40 mg - Labs Labs: 05/23/18 08:30 05/23/18 08:30 PT 12.8 SECONDS (9.4-12.5) H 05/18/18 15:15 INR 1.12 05/18/18 15:15 APTT 29.0 Seconds (25.1-36.5) 05/18/18 15:15 - Additional Findings Additional findings: - Constitutional Appears: Non-toxic, No Acute Distress - Head Exam Head Exam: NORMAL INSPECTION, NORMOCEPHALIC - Eye Exam Eye Exam: EOMI, Normal appearance. absent: Nystagmus, Scleral icterus - ENT Exam ENT Exam: Mucous Membranes Moist - Respiratory Exam Respiratory Exam: Clear to Ausculation Bilateral, NORMAL BREATHING PATTERN. absent: Rales, Rhonchi, Wheezes - Cardiovascular Exam Cardiovascular Exam: REGULAR RHYTHM, +S1, +S2. absent: Tachycardia - GI/Abdominal Exam GI & Abdominal Exam: Soft, Normal Bowel Sounds. absent: Distended, Firm, Guarding, Tenderness - Neurological Exam Neurological Exam: Alert, Awake, Oriented x3 Neuro motor strength exam: Left Upper Extremity: 0, Right Upper Extremity: 5, Left Lower Extremity: 2, Right Lower Extremity: 5 Additional comments: sensations decreased in upper and lower extremity and face on left side. Decreased from right however patient able to feel light touch and pain on left side. - Psychiatric Exam Psychiatric exam: Normal Affect, Normal Mood - Skin Skin Exam: Intact, Normal Color Assessment and Plan - Assessment and Plan (Free Text) Assessment: Patient is a 63 yo female from [facility] who presented with sudden onset CHEN and L sided paralysis and paresthesia. She was found to have a large intracranial h emorrhage on CT. She is presently being managed in the ICU. Neurosurgery consulted further recommendations as by neurosurgeon. As per neurosurgeon no surgical intervention at this time. Repeat MRI showed no acute changes from prior study. Aggressive PT/OT required in hospital until patient approved for [facility]. Patient went for angiogram to figure out etiology of bleed. Plan: Hemorrhagic stroke 05-18-18 CT head: Large intracerebral hematoma measuring approximately 2.1 x 5.4 cm at the right parieto- occipital region extending to the high convexity. Hematoma extends to the right lateral ventricle and occipital horn. Blood is seen with the interhemispheric talx. 05-18-18 CTA head and neck: unremarkable CT Angiograpy of the Brain 05-19-18 CT head: There is no change in the appearance of the intracerebral hematoma seen in the right parietal occipital lobe. Neurology consulted- Dr. Cross- maintain sodium level of 140-145; Keppra 500mg IVPB; Neursurgeon consulted- Dr. Jacobo/Malachi: no acute intervention necessary at this time MRI brain w/ and w/o contrast pending- unchanged from prior studies Echo - EF 64.3; mild AR; mild MR; no vegetation or thrombus noted PT/OT for strength training Cerebral angiogram pending to figure etiology Ppx GI ppx- Protonix 40mg IVP daily DVT ppx- Not indicated at this time Dispo: Patient will require social work assistance as patient has no insurance and is from [facility]. Pending insurance approval for further PT/OT outpatient Medical Management discussed with Dr. Islas PGY-1 Butchwilbert Eugenio <Jarrell Edge - Last Filed: 05/23/18 18:20> Objective - Vital Signs/Intake and Output Vital Signs (last 24 hours): Temp Pulse Resp BP Pulse Ox 97.7 F 68 12 125/68 97 05/23/18 17:50 05/23/18 17:50 05/23/18 17:50 05/23/18 17:50 05/23/18 14:05 Intake and Output: 05/23/18 05/23/18 06:59 18:59 Intake Total 1320 Output Total 1700 Balance -380 - Medications Medications: Current Medications Levetiracetam (Keppra 500mg Ivpb) 500 mg in 100 mls @ 400 mls/hr IVPB 0600,1800 [facility] Last Admin: 05/23/18 05:31 Dose: 400 mls/hr Metoclopramide HCl (Reglan) 10 mg IV ONCE PRN PRN Reason: Nausea/Vomiting Morphine Sulfate (Morphine) 2 mg IVP Q15M PRN PRN Reason: Pain, moderate (4-7) Ondansetron HCl (Zofran Inj) 4 mg IVP Q4H PRN PRN Reason: Nausea/Vomiting Last Admin: 05/18/18 20:09 Dose: 4 mg Pantoprazole Sodium (Protonix Inj) 40 mg IVP DAILY [facility] Last Admin: 05/23/18 10:23 Dose: 40 mg - Labs Labs: 05/23/18 08:30 05/23/18 08:30 PT 12.8 SECONDS (9.4-12.5) H 05/18/18 15:15 INR 1.12 05/18/18 15:15 APTT 29.0 Seconds (25.1-36.5) 05/18/18 15:15 Attending/Attestation - Attestation I have personally seen and examined this patient.: Yes I have fully participated in the care of the patient.: Yes I have reviewed all pertinent clinical information, including history, physical exam and plan: Yes Notes (Text): 05/23/18 18:19 63 year old female from [facility] who presented with left sided weakness. She was found to have large intracranial hemorrhage on CT scan. She was seen by neurosurgery and no acute surgical intervention was recommended. She was seen by neurology and started on keppra. Repeat CT head and MRI study showed no acute changes. PT is following. Patient is for diagnostic cerebral angiogram today. Patient may benefit from rehab therapy; will follow up with nephrology social worker and ed case manager. Jarrell Edge MD Hospitalist.
--- NOTE | 2018-05-23 15:11 | PCM.SURG1 ---
Surgeon's Initial Post Op Note - Surgeon's Notes Surgeon: Commercial Appraiser: none Type of Anesthesia: MAC Anesthesia Administered By: Dr.B Thomas Pre-Operative Diagnosis: Acute Intracranial Hemorrhage Operative Findings: No evidence of AVM or source of hemorrhage Post-Operative Diagnosis: Same Operation Performed: Diagnostic Cerebral Angiogram Specimen/Specimens Removed: NONE Estimated Blood Loss: EBL {In ML}: 25 Date of Surgery/Procedure: 05/23/18 Time of Surgery/Procedure: 14:30
[2018-05-23] MEDS ORDERED: Morphine 2 mg/ml ISec IVP PRN (15:22)
[2018-05-23] MEDS ORDERED: Sodium Chloride 0.9% 1,000 ML IV SCH (15:30)
[2018-05-24] MEDS: levETIRAcetam 500mg IVPB 500 MG/100 ML BAG IVPB SCH ×2 (05:11→17:55)
[2018-05-24 09:17] LABS: BLOOD UREA NITROGEN 9 mg/dL (7-21); CALCIUM 9.1 mg/dL (8.4-10.5); GFR NON-AFRICAN AMERICAN > 60
[2018-05-24 09:25] LABS: BASO # 0.02 K/mm3 (0.0-2.0); BASO % 0.2 % (0.0-3.0); EOS # 0.1 (0.0-0.7); GRAN # 6.81 (1.4-6.5); GRAN % 70.8 % (50.0-68.0); LYMPH # 2.1 (1.2-3.4); LYMPH % 21.3 % (22.0-35.0); MEAN CELL VOLUME 87.9 fl (80.0-105.0); MEAN CORPUSCULAR HEMOGLOBIN 29.1 pg (25.0-35.0); MEAN CORPUSCULAR HGB CONC 33.1 g/dl (31.0-37.0); MEAN PLATELET VOLUME 10.7 fl (7.0-11.0); MONO # 0.6 (0.1-0.6); MONO % 6.7 % (1.0-6.0); RBC 4.12 10^6/uL (3.5-6.1); RED CELL DISTRIBUTION WIDTH 13.1 % (11.5-14.5); WHITE BLOOD COUNT 9.6 10^3/ul (4.5-11.0)
--- NOTE | 2018-05-24 14:00 | CP.PCM.PN ---
<Rox Becker - Last Filed: 05/24/18 13:55> Subjective - Date & Time of Evaluation Date of Evaluation: 05/24/18 Time of Evaluation: 10:15 - Subjective Subjective: PGY-1 Medicine Progress Note for Dr. Edge's service Patient seen and examined at bedside. Patient offers mild headache after receiving medication. Patient denies fevers, chills, sob, n/v, constipation or diarrhea, dysuria. Objective - Vital Signs/Intake and Output Vital Signs (last 24 hours): Temp Pulse Resp BP Pulse Ox 98.9 F 72 20 119/66 99 05/24/18 08:03 05/24/18 08:03 05/24/18 08:03 05/24/18 08:03 05/24/18 08:03 Intake and Output: 05/24/18 05/24/18 06:59 18:59 Intake Total 340 Output Total 1000 Balance -660 - Medications Medications: Current Medications Levetiracetam (Keppra 500mg Ivpb) 500 mg in 100 mls @ 400 mls/hr IVPB 0600,1800 [facility] Last Admin: 05/24/18 05:11 Dose: 400 mls/hr Metoclopramide HCl (Reglan) 10 mg IV ONCE PRN PRN Reason: Nausea/Vomiting Morphine Sulfate (Morphine) 2 mg IVP Q15M PRN PRN Reason: Pain, moderate (4-7) Ondansetron HCl (Zofran Inj) 4 mg IVP Q4H PRN PRN Reason: Nausea/Vomiting Last Admin: 05/18/18 20:09 Dose: 4 mg Pantoprazole Sodium (Protonix Inj) 40 mg IVP DAILY [facility] Last Admin: 05/24/18 10:08 Dose: 40 mg - Labs Labs: 05/24/18 08:50 05/24/18 08:50 PT 12.8 SECONDS (9.4-12.5) H 05/18/18 15:15 INR 1.12 05/18/18 15:15 APTT 29.0 Seconds (25.1-36.5) 05/18/18 15:15 - Additional Findings Additional findings: - Constitutional Appears: Non-toxic, No Acute Distress - Head Exam Head Exam: NORMAL INSPECTION, NORMOCEPHALIC - Eye Exam Eye Exam: EOMI, Normal appearance. absent: Nystagmus, Scleral icterus - ENT Exam ENT Exam: Mucous Membranes Moist - Respiratory Exam Respiratory Exam: Clear to Ausculation Bilateral, NORMAL BREATHING PATTERN. absent: Rales, Rhonchi, Wheezes - Cardiovascular Exam Cardiovascular Exam: REGULAR RHYTHM, +S1, +S2. absent: Tachycardia - GI/Abdominal Exam GI & Abdominal Exam: Soft, Normal Bowel Sounds. absent: Distended, Firm, Guarding, Tenderness - Neurological Exam Neurological Exam: Alert, Awake, Oriented x3 Neuro motor strength exam: Left Upper Extremity: 0, Right Upper Extremity: 5, Left Lower Extremity: 2, Right Lower Extremity: 5 Additional comments: sensations decreased in upper and lower extremity and face on left side. Decreased from right however patient able to feel light touch and pain on left side. - Psychiatric Exam Psychiatric exam: Normal Affect, Normal Mood - Skin Skin Exam: Intact, Normal Color Assessment and Plan - Assessment and Plan (Free Text) Assessment: Patient is a 63 yo female from [facility] who presented with sudden onset CHEN and L sided paralysis and paresthesia. She was found to have a large intracranial hemorrhage on CT. She is presently being managed in the ICU. Neurosurgery consulted further recommendations as by neurosurgeon. As per neurosurgeon no surgical intervention at this time. Repeat MRI showed no acute changes from neal or study. Aggressive PT/OT required in hospital until patient approved for [facility] care. Patient went for angiogram to figure out etiology of bleed. No evidence of AVMs. Plan: Hemorrhagic stroke 05-18-18 CT head: Large intracerebral hematoma measuring approximately 2.1 x 5.4 cm at the right parieto- occipital region extending to the high convexity. Hematoma extends to the right lateral ventricle and occipital horn. Blood is seen with the interhemispheric talx. 05-18-18 CTA head and neck: unremarkable CT Angiograpy of the Brain 05-19-18 CT head: There is no change in the appearance of the intracerebral hematoma seen in the right parietal occipital lobe. Neurology consulted- Dr. Cross- maintain sodium level of 140-145; Keppra 500mg IVPB; Neursurgeon consulted- Dr. Jacobo/Malachi: no acute intervention necessary at this time MRI brain w/ and w/o contrast pending- unchanged from prior studies Echo - EF 64.3; mild AR; mild MR; no vegetation or thrombus noted PT/OT for strength training Cerebral angiogram- no evidence of AVMs Ppx GI ppx- Protonix 40mg po daily DVT ppx- Not indicated at this time Dispo: Patient will require social work assistance as patient has no insurance and is from [facility]. Pending insurance approval for further PT/OT outpatient Medical Management discussed with Dr. Edge PGY-1 Rox Becker <Jarrell Edge - Last Filed: 05/24/18 16:50> Objective - Vital Signs/Intake and Output Vital Signs (last 24 hours): Temp Pulse Resp BP Pulse Ox 98.9 F 72 20 119/66 99 05/24/18 08:03 05/24/18 08:03 05/24/18 08:03 05/24/18 08:03 05/24/18 08:03 Intake and Output: 05/24/18 05/24/18 06:59 18:59 Intake Total 340 Output Total 1000 Balance -660 - Medications Medications: Current Medications Levetiracetam (Keppra 500mg Ivpb) 500 mg in 100 mls @ 400 mls/hr IVPB 0600,1800 [facility] Last Admin: 05/24/18 05:11 Dose: 400 mls/hr Metoclopramide HCl (Reglan) 10 mg IV ONCE PRN PRN Reason: Nausea/Vomiting Morphine Sulfate (Morphine) 2 mg IVP Q15M PRN PRN Reason: Pain, moderate (4-7) Ondansetron HCl (Zofran Inj) 4 mg IVP Q4H PRN PRN Reason: Nausea/Vomiting Last Admin: 05/18/18 20:09 Dose: 4 mg Pantoprazole Sodium (Protonix Ec Tab) 40 mg PO 0600 [facility] - Labs Labs: 05/24/18 08:50 05/24/18 08:50 PT 12.8 SECONDS (9.4-12.5) H 05/18/18 15:15 INR 1.12 05/18/18 15:15 APTT 29.0 Seconds (25.1-36.5) 05/18/18 15:15 Attending/Attestation - Attestation I have personally seen and examined this patient.: Yes I have fully participated in the care of the patient.: Yes I have reviewed all pertinent clinical information, including history, physical exam and plan: Yes Notes (Text): 05/24/18 16:49 63 year old female from [facility] who presented with left sided weakness. She was found to have large intracranial hemorrhage on CT scan. She was seen by neurosurgery and no acute surgical intervention was recommended. She was seen by neurology and started on keppra. Repeat CT head and MRI study showed no acute changes. Cerebral angiogram was done yesterday and was negative. Continue with physical therapy; currently recommended acute rehab. Jarrell Edge MD Hospitalist.
--- NOTE | 2018-05-24 17:01 | CP.PCM.PN ---
<Rachelle Torrez - Last Filed: 05/24/18 16:59> Subjective - Date & Time of Evaluation Date of Evaluation: 05/24/18 Time of Evaluation: 16:59 - Subjective Subjective: Rachelle Torrez, PGY2, Neurology Progress Note for Dr Cross: Patient seen and examined at bedside. No acute events overnight. Patient AAOx4. Denies new focal weakness, headache, blurry vision, nausea, vomiting. Objective - Vital Signs/Intake and Output Vital Signs (last 24 hours): Temp Pulse Resp BP Pulse Ox 98.9 F 72 20 119/66 99 05/24/18 08:03 05/24/18 08:03 05/24/18 08:03 05/24/18 08:03 05/24/18 08:03 Intake and Output: 05/24/18 05/24/18 06:59 18:59 Intake Total 340 Output Total 1000 Balance -660 - Medications Medications: Current Medications Levetiracetam (Keppra 500mg Ivpb) 500 mg in 100 mls @ 400 mls/hr IVPB 0600,1800 [facility] Last Admin: 05/24/18 05:11 Dose: 400 mls/hr Metoclopramide HCl (Reglan) 10 mg IV ONCE PRN PRN Reason: Nausea/Vomiting Morphine Sulfate (Morphine) 2 mg IVP Q15M PRN PRN Reason: Pain, moderate (4-7) Ondansetron HCl (Zofran Inj) 4 mg IVP Q4H PRN PRN Reason: Nausea/Vomiting Last Admin: 05/18/18 20:09 Dose: 4 mg Pantoprazole Sodium (Protonix Ec Tab) 40 mg PO 0600 [facility] - Labs Labs: 05/24/18 08:50 05/24/18 08:50 PT 12.8 SECONDS (9.4-12.5) H 05/18/18 15:15 INR 1.12 05/18/18 15:15 APTT 29.0 Seconds (25.1-36.5) 05/18/18 15:15 - Additional Findings Additional findings: - Constitutional Appears: Non-toxic, No Acute Distress - Head Exam Head Exam: ATRAUMATIC, NORMOCEPHALIC - Eye Exam Eye Exam: EOMI, PERRL. absent: Conjunctival injection, Nystagmus, Scleral icterus Pupil Exam: NORMAL ACCOMODATION, PERRL. absent: Fixed, Irregular, Miosis, Mydriatic, Unequal - ENT Exam ENT Exam: Mucous Membranes Moist - Neck Exam Neck Exam: Full ROM - Respiratory Exam Respiratory Exam: Clear to Ausculation Bilateral, NORMAL BREATHING PATTERN. absent: Chest Wall Tenderness, Rales, Rhonchi, Wheezes, Respiratory Distress, Stridor - Cardiovascular Exam Cardiovascular Exam: RRR, +S1, +S2. absent: Murmur - GI/Abdominal Exam GI & Abdominal Exam: Soft, Normal Bowel Sounds. absent: Guarding, Rigid, Tenderness, Mass, Organomegaly, Rebound - Extremities Exam Extremities Exam: absent: Calf Tenderness, Pedal Edema - Back Exam Back Exam: NORMAL INSPECTION. absent: CVA tenderness (L), CVA tenderness (R) - Neurological Exam Neurological Exam: Alert, Awake, CN II-XII Intact, Oriented x3. Moving LLE today Neuro motor strength exam: Left Upper Extremity: 0 (no sensation), Right Upper Extremity: 5 (sensation intact), Left Lower Extremity: 1 (sensation none), Right Lower Extremity: 5 (sensation intact) Additional comments: 3+/4 reflexes LUE and LLE 2+/4 reflexes RUE and RLE Assessment and Plan - Assessment and Plan (Free Text) Assessment: 63 year old female with PMH HTN, arthritis, on NSAIDs, presented with sudden onset of headache, left sided hemiplegia, found to have right large parieto-occipital lobe bleed. Diagnostic cerebral angiogram done yesterday did not reveal any AVM or source of hemorrhage: - CT head 05/18: Large intracerebral hematoma measuring approximately 2.1 x 5.4 cm at the right parieto- occipital region Hematoma extends to the right lateral ventricle and occipital horn. Blood is seen with the interhemispheric talx. - CTA head and neck 05/18: unremarkable - CT head 05/19: There is no change in the appearance of the intracerebral hematoma seen in the right parietal occipital lobe. - repeat head CT 05/20 showed stable bleed. - MRI brain with IV contrast 05/20 showed large acute hemorrhage in right parietal lobe - 6.5 cm x3 cm x 2.7 cm, composed of s mixture of acute and subacute blood products. There is hemorrhage in the falx. Mild amount of surrounding vasogenic edema. No parenchymal mass. - On keppra 500 IV BID - neuro checks, seizure precautions - monitor Discussed case with Dr Cross. <Nabor Cross - Last Filed: 05/27/18 19:39> Objective - Vital Signs/Intake and Output Vital Signs (last 24 hours): Temp Pulse Resp BP Pulse Ox 99.3 F 79 19 119/61 97 05/27/18 16:36 05/27/18 16:36 05/27/18 16:36 05/27/18 16:36 05/27/18 16:36 Intake and Output: 05/27/18 05/28/18 18:59 06:59 Intake Total 1020 Output Total 1200 Balance -180 - Medications Medications: Current Medications Acetaminophen (Tylenol 325mg Tab) 650 mg PO Q6H PRN PRN Reason: Pain, moderate (4-7) Last Admin: 05/26/18 23:29 Dose: 650 mg Levetiracetam (Keppra 500mg Ivpb) 500 mg in 100 mls @ 400 mls/hr IVPB 0600,1800 [facility] Last Admin: 05/27/18 18:16 Dose: 400 mls/hr Ondansetron HCl (Zofran Inj) 4 mg IVP Q4H PRN PRN Reason: Nausea/Vomiting Last Admin: 05/18/18 20:09 Dose: 4 mg Pantoprazole Sodium (Protonix Ec Tab) 40 mg PO 0600 [facility] Last Admin: 05/27/18 06:57 Dose: 40 mg Polyethylene Glycol (Miralax) 17 gm PO DAILY [facility] Last Admin: 05/27/18 09:50 Dose: Not Given - Labs Labs: 05/27/18 08:55 05/27/18 07:30 PT 12.8 SECONDS (9.4-12.5) H 05/18/18 15:15 INR 1.12 05/18/18 15:15 APTT 29.0 Seconds (25.1-36.5) 05/18/18 15:15 Assessment and Plan (1) Intracerebral hemorrhage Status: Acute Attending/Attestation - Attestation I have personally seen and examined this patient.: Yes I have fully participated in the care of the patient.: Yes I have reviewed all pertinent clinical information, including history, physical exam and plan: Yes Notes (Text): 05/27/18 19:39 I agree with the assessment and plan. Will continue Keppra and follow up in several weeks with MRI of the brain to determine if there is anything underlying the bleeding. By then, it should have cleared out more.
[2018-05-25] MEDS: levETIRAcetam 500mg IVPB 500 MG/100 ML BAG IVPB SCH ×2 (05:52→17:21)
[2018-05-25] MEDS: Pantoprazole 40 mg EC Tab PO SCH (05:52)
[2018-05-25 08:28] LABS: BASO # 0.02 K/mm3 (0.0-2.0); BASO % 0.2 % (0.0-3.0); EOS # 0.2 (0.0-0.7); EOS % 1.6 % (1.5-5.0); GRAN # 7.32 (1.4-6.5); GRAN % 73.5 % (50.0-68.0); HEMOGLOBIN 13.4 g/dL (12.0-16.0); LYMPH # 1.7 (1.2-3.4); LYMPH % 17.4 % (22.0-35.0); MEAN CELL VOLUME 88.5 fl (80.0-105.0); MEAN CORPUSCULAR HEMOGLOBIN 29.6 pg (25.0-35.0); MEAN CORPUSCULAR HGB CONC 33.5 g/dl (31.0-37.0); MEAN PLATELET VOLUME 11.4 fl (7.0-11.0); MONO # 0.7 (0.1-0.6); MONO % 7.3 % (1.0-6.0); RBC 4.52 10^6/uL (3.5-6.1); RED CELL DISTRIBUTION WIDTH 13.1 % (11.5-14.5)
[2018-05-25] MEDS: POLYETHYLENE GLYCOL 3350 17 GM/Dose PACKET PO SCH (13:48)
--- NOTE | 2018-05-25 21:06 | CP.PCM.PN ---
<RexIam - Last Filed: 05/25/18 21:21> Subjective - Date & Time of Evaluation Date of Evaluation: 05/25/18 Time of Evaluation: 05:00 - Subjective Subjective: Pt. seen and examined, reports constipation. No other complaints at this time. Objective - Vital Signs/Intake and Output Vital Signs (last 24 hours): Temp Pulse Resp BP Pulse Ox 98.6 F 71 20 134/63 97 05/25/18 17:07 05/25/18 17:07 05/25/18 17:07 05/25/18 17:07 05/25/18 17:07 - Medications Medications: Current Medications Acetaminophen (Tylenol 325mg Tab) 650 mg PO Q6H PRN PRN Reason: Pain, moderate (4-7) Levetiracetam (Keppra 500mg Ivpb) 500 mg in 100 mls @ 400 mls/hr IVPB 0600,1800 [facility] Last Admin: 05/25/18 17:21 Dose: 400 mls/hr Metoclopramide HCl (Reglan) 10 mg IV ONCE PRN PRN Reason: Nausea/Vomiting Morphine Sulfate (Morphine) 2 mg IVP Q15M PRN PRN Reason: Pain, moderate (4-7) Ondansetron HCl (Zofran Inj) 4 mg IVP Q4H PRN PRN Reason: Nausea/Vomiting Last Admin: 05/18/18 20:09 Dose: 4 mg Pantoprazole Sodium (Protonix Ec Tab) 40 mg PO 0600 [facility] Last Admin: 05/25/18 05:52 Dose: 40 mg Polyethylene Glycol (Miralax) 17 gm PO DAILY [facility] Last Admin: 05/25/18 13:48 Dose: 17 gm - Labs Labs: 05/25/18 08:00 05/24/18 08:50 PT 12.8 SECONDS (9.4-12.5) H 05/18/18 15:15 INR 1.12 05/18/18 15:15 APTT 29.0 Seconds (25.1-36.5) 05/18/18 15:15 - Constitutional Appears: Non-toxic, No Acute Distress - Head Exam Head Exam: ATRAUMATIC, NORMAL INSPECTION, NORMOCEPHALIC - Eye Exam Eye Exam: EOMI. absent: Scleral icterus - ENT Exam ENT Exam: Mucous Membranes Moist - Neck Exam Neck Exam: Full ROM - Respiratory Exam Respiratory Exam: Clear to Ausculation Bilateral, NORMAL BREATHING PATTERN. absent: Decreased Breath Sounds, Wheezes, Respiratory Distress - Cardiovascular Exam Cardiovascular Exam: RRR, +S1, +S2. absent: Diastolic murmur, Murmur - GI/Abdominal Exam GI & Abdominal Exam: Soft, Normal Bowel Sounds. absent: Tenderness, Rebound - Extremities Exam Extremities Exam: Full ROM. absent: Calf Tenderness, Pedal Edema - Neurological Exam Neurological Exam: Alert, Oriented x3 Neuro motor strength exam: Left Upper Extremity: 2/1, Right Upper Extremity: 5, Left Lower Extremity: 2/1, Right Lower Extremity: 5 Additional comments: positive Babinski on the Left - Psychiatric Exam Psychiatric exam: Normal Affect, Normal Mood - Skin Skin Exam: Dry, Intact, Warm Assessment and Plan - Assessment and Plan (Free Text) Assessment: Patient is a 63 yo female from [facility] who presented with sudden onset CHEN and L sided hemiparesis, found to have a large intracranial hemorrhage on CT. She is presently being managed in the ICU. Neurosurgery consulted and recommends no surgical intervention at this time. Repeat MRI showed no acute changes from prior study. Aggressive PT/OT required in hospital until patient approved for [facility] care. Patient went for angiogram to determine etiology of bleed, no evidence of AVMs. Plan: Hemorrhagic stroke - CT head (05/18/18): Large 2.1 x 5.4 cm intracerebral hematoma at the right parieto- occipital region extending to the high convexity. Hematoma extends to the right lateral ventricle and occipital horn. Blood is seen with the interhemispheric talx. - CTA head and neck (05/18/18): unremarkable - repeat CT head (05/19/18): no change in the appearance of the intracerebral hematoma - MRI brain w/ constrast (05/20/18): large acute hemorrhage in right parietal lobe - 6.5 cm x3 cm x 2.7 cm, composed of s mixture of acute and subacute blood products. There is hemorrhage in the falx. - Cerebral Angiogram: no evidence of AVMs - Echo: EF 64.3%, mild AR, mild MR, no vengetation or thrombus - Neurology consulted, Dr. Cross: continue Keppra 500mg IVPB; continue to monitor - Neursurgury consulted, Dr. Jacobo/Malachi: no acute intervention necessary at this time - PT/OT Ppx - Protonix 40mg po daily -no DVT ppx in the setting of bleed Dispo: Patient will require actute rehab. Will need social work assistance as patient has no insurance and is from [facility]. Pending insurance approval for further PT/OT outpatient Pt seen and examined. Assessment and plan discussed with Dr. Kely Goodman, PGY 1, Internal Medicine Resident <Jarrell Edge - Last Filed: 05/26/18 07:42> Objective - Vital Signs/Intake and Output Vital Signs (last 24 hours): Temp Pulse Resp BP Pulse Ox 99.7 F H 70 20 113/63 97 05/26/18 00:00 05/26/18 00:00 05/26/18 00:00 05/26/18 00:00 05/26/18 00:00 Intake and Output: 05/26/18 05/26/18 06:59 18:59 Intake Total 1540 Output Total 2000 Balance -460 - Medications Medications: Current Medications Acetaminophen (Tylenol 325mg Tab) 650 mg PO Q6H PRN PRN Reason: Pain, moderate (4-7) Levetiracetam (Keppra 500mg Ivpb) 500 mg in 100 mls @ 400 mls/hr IVPB 0600,1800 [facility] Last Admin: 05/26/18 05:25 Dose: 400 mls/hr Metoclopramide HCl (Reglan) 10 mg IV ONCE PRN PRN Reason: Nausea/Vomiting Ondansetron HCl (Zofran Inj) 4 mg IVP Q4H PRN PRN Reason: Nausea/Vomiting Last Admin: 05/18/18 20:09 Dose: 4 mg Pantoprazole Sodium (Protonix Ec Tab) 40 mg PO 0600 [facility] Last Admin: 05/26/18 05:24 Dose: 40 mg Polyethylene Glycol (Miralax) 17 gm PO DAILY [facility] Last Admin: 05/25/18 13:48 Dose: 17 gm - Labs Labs: 05/25/18 08:00 05/24/18 08:50 PT 12.8 SECONDS (9.4-12.5) H 05/18/18 15:15 INR 1.12 05/18/18 15:15 APTT 29.0 Seconds (25.1-36.5) 05/18/18 15:15 Attending/Attestation - Attestation I have personally seen and examined this patient.: Yes I have fully participated in the care of the patient.: Yes I have reviewed all pertinent clinical information, including history, physical exam and plan: Yes Notes (Text): 05/25/18 63 year old female from [facility] who presented with left sided weakness. She was found to have large intracranial hemorrhage on CT scan. She was seen by neurosurgery and no acute surgical intervention was recommended. She was seen by neurology and started on keppra. Repeat CT head and MRI study showed no acute changes. Cerebral angiogram was done earlier this week which was negative. Patient complains of constipation x3 days. Will add miralax. Continue with physical therapy; currently recommended acute rehab. Jarrell Edge MD Hospitalist.
[2018-05-26] MEDS: Pantoprazole 40 mg EC Tab PO SCH (05:24)
[2018-05-26] MEDS: levETIRAcetam 500mg IVPB 500 MG/100 ML BAG IVPB SCH ×2 (05:25→17:09)
[2018-05-26 08:34] LABS: BASO # 0.05 K/mm3 (0.0-2.0); BASO % 0.6 % (0.0-3.0); EOS # 0.2 (0.0-0.7); EOS % 2.5 % (1.5-5.0); GRAN # 5.75 (1.4-6.5); GRAN % 68.8 % (50.0-68.0); LYMPH # 1.7 (1.2-3.4); LYMPH % 20.4 % (22.0-35.0); MEAN CELL VOLUME 88.5 fl (80.0-105.0); MEAN CORPUSCULAR HEMOGLOBIN 29.8 pg (25.0-35.0); MEAN CORPUSCULAR HGB CONC 33.7 g/dl (31.0-37.0); MEAN PLATELET VOLUME 11.4 fl (7.0-11.0); MONO # 0.6 (0.1-0.6); MONO % 7.7 % (1.0-6.0); RBC 4.36 10^6/uL (3.5-6.1); RED CELL DISTRIBUTION WIDTH 13.1 % (11.5-14.5); WHITE BLOOD COUNT 8.4 10^3/ul (4.5-11.0)
[2018-05-26 09:03] LABS: ALBUMIN 3.9 g/dL (3.0-4.8); ALT/SGPT 42 U/L (7-56); AST/SGOT 40 U/L (14-36); BLOOD UREA NITROGEN 12 mg/dL (7-21); CALCIUM 9.2 mg/dL (8.4-10.5); GFR NON-AFRICAN AMERICAN > 60
[2018-05-26] MEDS: POLYETHYLENE GLYCOL 3350 17 GM/Dose PACKET PO SCH (09:33)
--- NOTE | 2018-05-26 12:47 | CP.PCM.PN ---
<Iam Goodman - Last Filed: 05/26/18 12:58> Subjective - Date & Time of Evaluation Date of Evaluation: 05/26/18 Time of Evaluation: 05:00 - Subjective Subjective: Pt seen and examined at bedside this morning. Pt states she was able to move her bowels yesterday. Pt denies any new complaints Objective - Vital Signs/Intake and Output Vital Signs (last 24 hours): Temp Pulse Resp BP Pulse Ox 98.2 F 74 20 132/74 98 05/26/18 06:00 05/26/18 06:00 05/26/18 06:00 05/26/18 06:00 05/26/18 06:00 Intake and Output: 05/26/18 05/26/18 06:59 18:59 Intake Total 1540 Output Total 2000 Balance -460 - Medications Medications: Current Medications Acetaminophen (Tylenol 325mg Tab) 650 mg PO Q6H PRN PRN Reason: Pain, moderate (4-7) Levetiracetam (Keppra 500mg Ivpb) 500 mg in 100 mls @ 400 mls/hr IVPB 0600,1800 [facility] Last Admin: 05/26/18 05:25 Dose: 400 mls/hr Metoclopramide HCl (Reglan) 10 mg IV ONCE PRN PRN Reason: Nausea/Vomiting Ondansetron HCl (Zofran Inj) 4 mg IVP Q4H PRN PRN Reason: Nausea/Vomiting Last Admin: 05/18/18 20:09 Dose: 4 mg Pantoprazole Sodium (Protonix Ec Tab) 40 mg PO 0600 [facility] Last Admin: 05/26/18 05:24 Dose: 40 mg Polyethylene Glycol (Miralax) 17 gm PO DAILY [facility] Last Admin: 05/26/18 09:33 Dose: Not Given - Labs Labs: 05/26/18 07:00 05/26/18 07:00 PT 12.8 SECONDS (9.4-12.5) H 05/18/18 15:15 INR 1.12 05/18/18 15:15 APTT 29.0 Seconds (25.1-36.5) 05/18/18 15:15 - Constitutional Appears: Non-toxic, No Acute Distress - Head Exam Head Exam: ATRAUMATIC, NORMAL INSPECTION, NORMOCEPHALIC - Eye Exam Eye Exam: EOMI - ENT Exam ENT Exam: Mucous Membranes Moist - Neck Exam Neck Exam: Full ROM - Cardiovascular Exam Cardiovascular Exam: RRR, +S1, +S2. absent: Diastolic murmur, Murmur - GI/Abdominal Exam GI & Abdominal Exam: Soft, Normal Bowel Sounds. absent: Tenderness - Extremities Exam Extremities Exam: absent: Full ROM, Pedal Edema, Tenderness Additional comments: pt has left sided paralysis of her UE and LE positive babinski on left - Neurological Exam Neurological Exam: Alert, Normal Gait, Oriented x3 Neuro motor strength exam: Left Upper Extremity: 2/1, Right Upper Extremity: 5, Left Lower Extremity: 2/1, Right Lower Extremity: 5 - Psychiatric Exam Psychiatric exam: Normal Affect, Normal Mood - Skin Skin Exam: Dry, Normal Color, Warm Assessment and Plan - Assessment and Plan (Free Text) Assessment: Patient is a 63 yo female from [facility] who presented with sudden onset CHEN and L sided hemiparesis, found to have a large intracranial hemorrhage on CT. She is presently being managed in the ICU. Neurosurgery consulted and recommends no surgical intervention at this time. Repeat MRI showed no acute changes from prior study. Aggressive PT/OT required in hospital until patient approved for [facility]. Patient went for angiogram to determine etiology of bleed, no evidence of AVMs. Plan: Hemorrhagic stroke - CT head (05/18/18): Large 2.1 x 5.4 cm intracerebral hematoma at the right parieto- occipital region extending to the high convexity. Hematoma extends to the right lateral ventricle and occipital horn. Blood is seen with the interhemispheric talx. - CTA head and neck (05/18/18): unremarkable - repeat CT head (05/19/18): no change in the appearance of the intracerebral hematoma - MRI brain w/ constrast (05/20/18): large acute hemorrhage in right parietal lobe - 6.5 cm x3 cm x 2.7 cm, composed of s mixture of acute and subacute blood products. There is hemorrhage in the falx. - Cerebral Angiogram: no evidence of AVMs - Echo: EF 64.3%, mild AR, mild MR, no vengetation or thrombus - Neurology consulted, Dr. Cross: continue Keppra 500mg IVPB; continue to monitor - Neursurgury consulted, Dr. Jacobo/Malachi: no acute intervention necess iram at this time - PT/OT Constipation - pt given Miralax yesterday - pt reports BM Ppx - Protonix - no DVT ppx in the setting of bleed Dispo - Patient will require actute rehab. Will need social work assistance as sonali kilpatrick has no insurance and is from [facility]. Pending insurance approval for further PT/OT outpatient Pt seen and examined. Assessment and plan discussed with Dr. Kely Goodman, PGY 1, Internal Medicine Resident <Jarrell Edge - Last Filed: 05/26/18 13:21> Objective - Vital Signs/Intake and Output Vital Signs (last 24 hours): Temp Pulse Resp BP Pulse Ox 98.2 F 74 20 132/74 98 05/26/18 06:00 05/26/18 06:00 05/26/18 06:00 05/26/18 06:00 05/26/18 06:00 Intake and Output: 05/26/18 05/26/18 06:59 18:59 Intake Total 1540 Output Total 2000 Balance -460 - Medications Medications: Current Medications Acetaminophen (Tylenol 325mg Tab) 650 mg PO Q6H PRN PRN Reason: Pain, moderate (4-7) Levetiracetam (Keppra 500mg Ivpb) 500 mg in 100 mls @ 400 mls/hr IVPB 0600,1800 [facility] Last Admin: 05/26/18 05:25 Dose: 400 mls/hr Metoclopramide HCl (Reglan) 10 mg IV ONCE PRN PRN Reason: Nausea/Vomiting Ondansetron HCl (Zofran Inj) 4 mg IVP Q4H PRN PRN Reason: Nausea/Vomiting Last Admin: 05/18/18 20:09 Dose: 4 mg Pantoprazole Sodium (Protonix Ec Tab) 40 mg PO 0600 [facility] Last Admin: 05/26/18 05:24 Dose: 40 mg Polyethylene Glycol (Miralax) 17 gm PO DAILY [facility] Last Admin: 05/26/18 09:33 Dose: Not Given - Labs Labs: 05/26/18 07:00 05/26/18 07:00 PT 12.8 SECONDS (9.4-12.5) H 05/18/18 15:15 INR 1.12 05/18/18 15:15 APTT 29.0 Seconds (25.1-36.5) 05/18/18 15:15 Attending/Attestation - Attestation I have personally seen and examined this patient.: Yes I have fully participated in the care of the patient.: Yes I have reviewed all pertinent clinical information, including history, physical exam and plan: Yes Notes (Text): 05/26/18 13:20 63 year old female from [facility] who presented with left sided weakness. She was found to have large intracranial hemorrhage on CT scan. She was seen by neurosurgery and no acute surgical intervention was recommended. She was seen by neurology and started on keppra. Repeat CT head and MRI study showed no acute changes. Cerebral angiogram was done few days prior which was negative. Continue with physical therapy; currently recommended acute rehab. Patient was started on miralax for constipation. Will replete and repeat potassium. Jarrell Edge MD Hospitalist.
[2018-05-26] MEDS ORDERED: Potassium Chloride 40 mEq/30 ml LIQ UD PO ONE (13:20)
[2018-05-27] MEDS: levETIRAcetam 500mg IVPB 500 MG/100 ML BAG IVPB SCH ×2 (06:21→18:16)
[2018-05-27] MEDS: Pantoprazole 40 mg EC Tab PO SCH (06:57)
[2018-05-27 09:05] LABS: BASO # 0.03 K/mm3 (0.0-2.0); BASO % 0.4 % (0.0-3.0); EOS # 0.2 (0.0-0.7); EOS % 2.6 % (1.5-5.0); GRAN # 4.35 (1.4-6.5); GRAN % 63.2 % (50.0-68.0); HEMOGLOBIN 12.3 g/dL (12.0-16.0); LYMPH # 1.8 (1.2-3.4); LYMPH % 26.1 % (22.0-35.0); MEAN CELL VOLUME 87.2 fl (80.0-105.0); MEAN CORPUSCULAR HEMOGLOBIN 29.8 pg (25.0-35.0); MEAN CORPUSCULAR HGB CONC 34.2 g/dl (31.0-37.0); MONO # 0.5 (0.1-0.6); MONO % 7.7 % (1.0-6.0); RBC 4.13 10^6/uL (3.5-6.1); RED CELL DISTRIBUTION WIDTH 12.7 % (11.5-14.5); WHITE BLOOD COUNT 6.9 10^3/ul (4.5-11.0)
[2018-05-27 09:12] LABS: ALBUMIN 3.9 g/dL (3.0-4.8); ALT/SGPT 41 U/L (7-56); AST/SGOT 33 U/L (14-36); BLOOD UREA NITROGEN 12 mg/dL (7-21); CALCIUM 9.1 mg/dL (8.4-10.5); GFR NON-AFRICAN AMERICAN > 60
[2018-05-27] MEDS: POLYETHYLENE GLYCOL 3350 17 GM/Dose PACKET PO SCH (09:50)
--- NOTE | 2018-05-27 13:29 | CP.PCM.PN ---
<Rox Becker - Last Filed: 05/27/18 13:26> Subjective - Date & Time of Evaluation Date of Evaluation: 05/27/18 Time of Evaluation: 11:15 - Subjective Subjective: PGY-1 Medicine Progress Note for Dr. Penaloza's service Patient seen and examined at bedside. Patient reports mild discomfort at groin area where angiogram needle was inserted. Patient denies fevers, chills, cp, sob, headaches, n/v, constipation or diarrhea, dysuria. Objective - Vital Signs/Intake and Output Vital Signs (last 24 hours): Temp Pulse Resp BP Pulse Ox 98 F 63 18 123/64 98 05/27/18 08:15 05/27/18 08:15 05/27/18 08:15 05/27/18 08:15 05/27/18 08:15 - Medications Medications: Current Medications Acetaminophen (Tylenol 325mg Tab) 650 mg PO Q6H PRN PRN Reason: Pain, moderate (4-7) Last Admin: 05/26/18 23:29 Dose: 650 mg Levetiracetam (Keppra 500mg Ivpb) 500 mg in 100 mls @ 400 mls/hr IVPB 0600,1800 [facility] Last Admin: 05/27/18 06:21 Dose: 400 mls/hr Ondansetron HCl (Zofran Inj) 4 mg IVP Q4H PRN PRN Reason: Nausea/Vomiting Last Admin: 05/18/18 20:09 Dose: 4 mg Pantoprazole Sodium (Protonix Ec Tab) 40 mg PO 0600 [facility] Last Admin: 05/27/18 06:57 Dose: 40 mg Polyethylene Glycol (Miralax) 17 gm PO DAILY [facility] Last Admin: 05/27/18 09:50 Dose: Not Given - Labs Labs: 05/27/18 08:55 05/27/18 07:30 PT 12.8 SECONDS (9.4-12.5) H 05/18/18 15:15 INR 1.12 05/18/18 15:15 APTT 29.0 Seconds (25.1-36.5) 05/18/18 15:15 - Additional Findings Additional findings: - Constitutional Appears: Non-toxic, No Acute Distress - Head Exam Head Exam: NORMAL INSPECTION, NORMOCEPHALIC - Eye Exam Eye Exam: EOMI, Normal appearance. absent: Nystagmus, Scleral icterus - ENT Exam ENT Exam: Mucous Membranes Moist - Respiratory Exam Respiratory Exam: Clear to Ausculation Bilateral, NORMAL BREATHING PATTERN. absent: Rales, Rhonchi, Wheezes - Cardiovascular Exam Cardiovascular Exam: REGULAR RHYTHM, +S1, +S2. absent: Tachycardia - GI/Abdominal Exam GI & Abdominal Exam: Soft, Normal Bowel Sounds. absent: Distended, Firm, Guarding, Tenderness - Neurological Exam Neurological Exam: Alert, Awake, Oriented x3 Neuro motor strength exam: Left Upper Extremity: 0, Right Upper Extremity: 5, Left Lower Extremity: 2, Right Lower Extremity: 5 Additional comments: sensations improved with equal sensation in right and left upper and lower extremity. - Psychiatric Exam Psychiatric exam: Normal Affect, Normal Mood - Skin Skin Exam: Intact, Normal Color Assessment and Plan - Assessment and Plan (Free Text) Assessment: Patient is a 63 yo female from [facility] who presented with sudden onset CHEN and L sided paralysis and paresthesia. She was found to have a large intracranial hemorrhage on CT. She is presently being managed in the ICU. Neurosurgery consulted further recommendations as by neurosurgeon. As per neurosurgeon no surgical intervention at this time. Repeat MRI showed no acute changes from prior study. Aggressive PT/OT required in hospital until patient approved for [facility] care. Patient went for angiogram to figure out etiology of bleed. No evidence of AVMs. Plan: Hemorrhagic stroke 05-18-18 CT head: Large intracerebral hematoma measuring approximately 2.1 x 5.4 cm at the right parieto- occipital region extending to the high convexity. Hematoma extends to the right lateral ventricle and occipital horn. Blood is seen with the interhemispheric talx. 05-18-18 CTA head and neck: unremarkable CT Angiograpy of the Brain 05-19-18 CT head: There is no change in the appearance of the intracerebral hematoma seen in the right parietal occipital lobe. Neurology consulted- Dr. Cross- maintain sodium level of 140-145; Keppra 500mg IVPB; Neursurgeon consulted- Dr. Jacobo/Malachi: no acute intervention necessary at this time MRI brain w/ and w/o contrast pending- unchanged from prior studies Echo - EF 64.3; mild AR; mild MR; no vegetation or thrombus noted PT/OT for strength training Cerebral angiogram- no evidence of AVMs Ppx GI ppx- Protonix 40mg po daily DVT ppx- SCDs, no heparin 2/2 bleed Dispo: Patient will require social work assistance as patient has no insurance and is from [facility]. Pending insurance approval for further PT/OT outpatient Medical Management discussed with Dr. Penaloza PGY-1 Rox Eugenio <Noelle Penaloza - Last Filed: 05/27/18 17:04> Objective - Vital Signs/Intake and Output Vital Signs (last 24 hours): Temp Pulse Resp BP Pulse Ox 99.3 F 79 19 119/61 97 05/27/18 16:36 05/27/18 16:36 05/27/18 16:36 05/27/18 16:36 05/27/18 16:36 - Medications Medications: Current Medications Acetaminophen (Tylenol 325mg Tab) 650 mg PO Q6H PRN PRN Reason: Pain, moderate (4-7) Last Admin: 05/26/18 23:29 Dose: 650 mg Levetiracetam (Keppra 500mg Ivpb) 500 mg in 100 mls @ 400 mls/hr IVPB 0600,1800 [facility] Last Admin: 05/27/18 06:21 Dose: 400 mls/hr Ondansetron HCl (Zofran Inj) 4 mg IVP Q4H PRN PRN Reason: Nausea/Vomiting Last Admin: 05/18/18 20:09 Dose: 4 mg Pantoprazole Sodium (Protonix Ec Tab) 40 mg PO 0600 [facility] Last Admin: 05/27/18 06:57 Dose: 40 mg Polyethylene Glycol (Miralax) 17 gm PO DAILY [facility] Last Admin: 05/27/18 09:50 Dose: Not Given - Labs Labs: 05/27/18 08:55 05/27/18 07:30 PT 12.8 SECONDS (9.4-12.5) H 05/18/18 15:15 INR 1.12 05/18/18 15:15 APTT 29.0 Seconds (25.1-36.5) 05/18/18 15:15 Attending/Attestation - Attestation I have personally seen and examined this patient.: Yes I have fully participated in the care of the patient.: Yes I have reviewed all pertinent clinical information, including history, physical exam and plan: Yes Notes (Text): 05/27/18 17:02 Medical record note made by the resident after discussion with my direction and input after the patient was personally seen and examined by me. I have reviewed the chart and agree that the record accurately reflects by personal performance of the history, physical exam, data review, and medical decision-making, in the course for the patient. I have also personally directed the plan of care. 63 year old female from [facility] who presented with left sided weakness, found to have large intracranial hemorrhage on CT scan. Repeat CT head and MRI study showed no acute changes. Cerebral angiogram was done last week which was negative. She was seen by neurosurgery and no acute surgical intervention was recommended. She was seen by neurology and started on keppra. Continue with physical therapy on medical floor, currently recommended acute rehab. Management plan was discussed in detail with patient. Education was provided. 05/27/18 17:04
[2018-05-28] MEDS: levETIRAcetam 500mg IVPB 500 MG/100 ML BAG IVPB SCH ×2 (05:39→17:06)
[2018-05-28] MEDS: Pantoprazole 40 mg EC Tab PO SCH (05:40)
[2018-05-28 07:42] LABS: BASO # 0.03 K/mm3 (0.0-2.0); BASO % 0.3 % (0.0-3.0); EOS # 0.2 (0.0-0.7); EOS % 1.6 % (1.5-5.0); GRAN # 6.73 (1.4-6.5); GRAN % 70.7 % (50.0-68.0); HEMOGLOBIN 12.8 g/dL (12.0-16.0); LYMPH # 1.8 (1.2-3.4); LYMPH % 18.9 % (22.0-35.0); MEAN CELL VOLUME 88.3 fl (80.0-105.0); MEAN CORPUSCULAR HEMOGLOBIN 29.4 pg (25.0-35.0); MEAN CORPUSCULAR HGB CONC 33.2 g/dl (31.0-37.0); MEAN PLATELET VOLUME 10.1 fl (7.0-11.0); MONO # 0.8 (0.1-0.6); MONO % 8.5 % (1.0-6.0); RBC 4.36 10^6/uL (3.5-6.1); RED CELL DISTRIBUTION WIDTH 12.8 % (11.5-14.5); WHITE BLOOD COUNT 9.5 10^3/ul (4.5-11.0)
[2018-05-28 07:48] LABS: ALBUMIN 4.1 g/dL (3.0-4.8); ALT/SGPT 39 U/L (7-56); AST/SGOT 39 U/L (14-36); BLOOD UREA NITROGEN 14 mg/dL (7-21); CALCIUM 9.5 mg/dL (8.4-10.5); GFR NON-AFRICAN AMERICAN > 60
[2018-05-28] MEDS: POLYETHYLENE GLYCOL 3350 17 GM/Dose PACKET PO SCH (09:05)
--- NOTE | 2018-05-28 16:54 | CP.PCM.PN ---
<Rox Becker - Last Filed: 05/28/18 16:52> Subjective - Date & Time of Evaluation Date of Evaluation: 05/28/18 Time of Evaluation: 10:30 - Subjective Subjective: PGY-1 Medicine Progress note for Dr. Penaloza's service Patient seen and examined at bedside. Patient offers no acute complaints. Patient denies fevers, chills, cp, sob, headaches, n/v, constipation or diarrhea, dysuria. Objective - Vital Signs/Intake and Output Vital Signs (last 24 hours): Temp Pulse Resp BP Pulse Ox 97.6 F 91 H 20 135/79 97 05/28/18 16:19 05/28/18 16:19 05/28/18 16:19 05/28/18 16:19 05/28/18 16:19 Intake and Output: 05/28/18 05/28/18 06:59 18:59 Intake Total 1360 Output Total 1750 Balance -390 - Medications Medications: Current Medications Acetaminophen (Tylenol 325mg Tab) 650 mg PO Q6H PRN PRN Reason: Pain, moderate (4-7) Last Admin: 05/26/18 23:29 Dose: 650 mg Levetiracetam (Keppra 500mg Ivpb) 500 mg in 100 mls @ 400 mls/hr IVPB 0600,1800 [facility] Last Admin: 05/28/18 05:39 Dose: 400 mls/hr Ondansetron HCl (Zofran Inj) 4 mg IVP Q4H PRN PRN Reason: Nausea/Vomiting Last Admin: 05/18/18 20:09 Dose: 4 mg Pantoprazole Sodium (Protonix Ec Tab) 40 mg PO 0600 [facility] Last Admin: 05/28/18 05:40 Dose: 40 mg Polyethylene Glycol (Miralax) 17 gm PO DAILY [facility] Last Admin: 05/28/18 09:05 Dose: Not Given - Labs Labs: 05/28/18 07:30 05/28/18 07:30 PT 12.8 SECONDS (9.4-12.5) H 05/18/18 15:15 INR 1.12 05/18/18 15:15 APTT 29.0 Seconds (25.1-36.5) 05/18/18 15:15 - Additional Findings Additional findings: - Constitutional Appears: Non-toxic, No Acute Distress - Head Exam Head Exam: NORMAL INSPECTION, NORMOCEPHALIC - Eye Exam Eye Exam: EOMI, Normal appearance. absent: Nystagmus, Scleral icterus - ENT Exam ENT Exam: Mucous Membranes Moist - Respiratory Exam Respiratory Exam: Clear to Ausculation Bilateral, NORMAL BREATHING PATTERN. absent: Rales, Rhonchi, Wheezes - Cardiovascular Exam Cardiovascular Exam: REGULAR RHYTHM, +S1, +S2. absent: Tachycardia - GI/Abdominal Exam GI & Abdominal Exam: Soft, Normal Bowel Sounds. absent: Distended, Firm, Guarding, Tenderness - Neurological Exam Neurological Exam: Alert, Awake, Oriented x3 Neuro motor strength exam: Left Upper Extremity: 0, Right Upper Extremity: 5, Left Lower Extremity: 2, Right Lower Extremity: 5 Additional comments: sensations improved with equal sensation in right and left upper and lower extremity. - Psychiatric Exam Psychiatric exam: Normal Affect, Normal Mood - Skin Skin Exam: Intact, Normal Color Assessment and Plan - Assessment and Plan (Free Text) Assessment: Patient is a 63 yo female from [facility] who presented with sudden onset CHEN and L sided paralysis and paresthesia. She was found to have a large intracranial hemorrhage on CT. She is presently being managed in the ICU. Neurosurgery consulted further recommendations as by neurosurgeon. As per neurosurgeon no surgical intervention at this time. Repeat MRI showed no acute changes from prior study. Aggressive PT/OT required in hospital until patient approved for [facility] care. Patient went for angiogram to figure out etiology of bleed. No evidence of AVMs. Plan: Hemorrhagic stroke 05-18-18 CT head: Large intracerebral hematoma measuring approximately 2.1 x 5.4 cm at the right parieto- occipital region extending to the high convexity. Hematoma extends to the right lateral ventricle and occipital horn. Blood is seen with the interhemispheric talx. 05-18-18 CTA head and neck: unremarkable CT Angiograpy of the Brain 05-19-18 CT head: There is no change in the appearance of the intracerebral hematoma seen in the right parietal occipital lobe. Neurology consulted- Dr. Cross- maintain sodium level of 140-145; Keppra 500mg IVPB; Neursurgeon consulted- Dr. Jacobo/Malachi: no acute intervention necessary at this time MRI brain w/ and w/o contrast pending- unchanged from prior studies Echo - EF 64.3; mild AR; mild MR; no vegetation or thrombus noted PT/OT for strength training Cerebral angiogram- no evidence of AVMs Ppx GI ppx- Protonix 40mg po daily DVT ppx- SCDs, no heparin 2/2 bleed Dispo: Family will be arriving from [facility] on Sunday for possible transfer of patient back home to [facility] for continued treatment as patient has no insurance here and will not qualify for outpatient PT. Medical Management discussed with Dr. Penaloza PGY-1 Rox Becker <Noelle Penaloza - Last Filed: 05/29/18 15:14> Objective - Vital Signs/Intake and Output Vital Signs (last 24 hours): Temp Pulse Resp BP Pulse Ox 98.1 F 78 19 127/71 96 05/29/18 06:00 05/29/18 06:00 05/29/18 06:00 05/29/18 06:00 05/29/18 06:00 Intake and Output: 05/29/18 05/29/18 06:59 18:59 Intake Total 300 Output Total 1000 Balance -700 - Medications Medications: Current Medications Acetaminophen (Tylenol 325mg Tab) 650 mg PO Q6H PRN PRN Reason: Pain, moderate (4-7) Last Admin: 05/26/18 23:29 Dose: 650 mg Levetiracetam (Keppra 500mg Ivpb) 500 mg in 100 mls @ 400 mls/hr IVPB 0600,1800 [facility] Last Admin: 05/29/18 05:06 Dose: 400 mls/hr Ondansetron HCl (Zofran Inj) 4 mg IVP Q4H PRN PRN Reason: Nausea/Vomiting Last Admin: 05/18/18 20:09 Dose: 4 mg Pantoprazole Sodium (Protonix Ec Tab) 40 mg PO 0600 [facility] Last Admin: 05/29/18 05:20 Dose: 40 mg Polyethylene Glycol (Miralax) 17 gm PO DAILY [facility] Last Admin: 05/29/18 09:00 Dose: 17 gm - Labs Labs: 05/29/18 06:30 05/29/18 06:30 PT 12.8 SECONDS (9.4-12.5) H 05/18/18 15:15 INR 1.12 05/18/18 15:15 APTT 29.0 Seconds (25.1-36.5) 05/18/18 15:15 Attending/Attestation - Attestation I have personally seen and examined this patient.: Yes I have fully participated in the care of the patient.: Yes I have reviewed all pertinent clinical information, including history, physical exam and plan: Yes Notes (Text): 05/29/18 15:13 Medical record note made by the resident after discussion with my direction and input after the patient was personally seen and examined by me. I have reviewed the chart and agree that the record accurately reflects by personal performance of the history, physical exam, data review, and medical decision-making, in the course for the patient. I have also personally directed the plan of care.
[2018-05-29] MEDS: levETIRAcetam 500mg IVPB 500 MG/100 ML BAG IVPB SCH ×2 (05:06→19:12)
[2018-05-29] MEDS: Pantoprazole 40 mg EC Tab PO SCH (05:20)
[2018-05-29 07:06] LABS: BASO # 0.03 K/mm3 (0.0-2.0); BASO % 0.4 % (0.0-3.0); EOS # 0.1 (0.0-0.7); EOS % 1.2 % (1.5-5.0); GRAN # 5.43 (1.4-6.5); GRAN % 66.4 % (50.0-68.0); HEMOGLOBIN 12.2 g/dL (12.0-16.0); LYMPH # 1.9 (1.2-3.4); LYMPH % 23.1 % (22.0-35.0); MEAN CELL VOLUME 87.9 fl (80.0-105.0); MEAN CORPUSCULAR HEMOGLOBIN 29.5 pg (25.0-35.0); MEAN CORPUSCULAR HGB CONC 33.5 g/dl (31.0-37.0); MEAN PLATELET VOLUME 9.8 fl (7.0-11.0); MONO # 0.7 (0.1-0.6); MONO % 8.9 % (1.0-6.0); RBC 4.14 10^6/uL (3.5-6.1); RED CELL DISTRIBUTION WIDTH 12.7 % (11.5-14.5); WHITE BLOOD COUNT 8.2 10^3/ul (4.5-11.0)
[2018-05-29 07:41] LABS: ALBUMIN 3.8 g/dL (3.0-4.8); ALT/SGPT 30 U/L (7-56); AST/SGOT 31 U/L (14-36); BLOOD UREA NITROGEN 15 mg/dL (7-21); CALCIUM 9.1 mg/dL (8.4-10.5); GFR NON-AFRICAN AMERICAN > 60
[2018-05-29] MEDS: POLYETHYLENE GLYCOL 3350 17 GM/Dose PACKET PO SCH (09:00)
--- NOTE | 2018-05-29 13:36 | CP.PCM.PN ---
<Rox Becker - Last Filed: 05/29/18 13:34> Subjective - Date & Time of Evaluation Date of Evaluation: 05/29/18 Time of Evaluation: 10:30 - Subjective Subjective: PGY-1 Medicine Progress Note for Dr. Penaloza's service Patient seen and examined at bedside. Patient offers no acute complaints. Patient denies fevers, chills, cp, sob, n/v, constipation or diarrhea, dysuria. Objective - Vital Signs/Intake and Output Vital Signs (last 24 hours): Temp Pulse Resp BP Pulse Ox 98.1 F 78 19 127/71 96 05/29/18 06:00 05/29/18 06:00 05/29/18 06:00 05/29/18 06:00 05/29/18 06:00 Intake and Output: 05/29/18 05/29/18 06:59 18:59 Intake Total 300 Output Total 1000 Balance -700 - Medications Medications: Current Medications Acetaminophen (Tylenol 325mg Tab) 650 mg PO Q6H PRN PRN Reason: Pain, moderate (4-7) Last Admin: 05/26/18 23:29 Dose: 650 mg Levetiracetam (Keppra 500mg Ivpb) 500 mg in 100 mls @ 400 mls/hr IVPB 0600,1800 [facility] Last Admin: 05/29/18 05:06 Dose: 400 mls/hr Ondansetron HCl (Zofran Inj) 4 mg IVP Q4H PRN PRN Reason: Nausea/Vomiting Last Admin: 05/18/18 20:09 Dose: 4 mg Pantoprazole Sodium (Protonix Ec Tab) 40 mg PO 0600 [facility] Last Admin: 05/29/18 05:20 Dose: 40 mg Polyethylene Glycol (Miralax) 17 gm PO DAILY [facility] Last Admin: 05/29/18 09:00 Dose: 17 gm - Labs Labs: 05/29/18 06:30 05/29/18 06:30 PT 12.8 SECONDS (9.4-12.5) H 05/18/18 15:15 INR 1.12 05/18/18 15:15 APTT 29.0 Seconds (25.1-36.5) 05/18/18 15:15 - Additional Findings Additional findings: - Constitutional Appears: Non-toxic, No Acute Distress - Head Exam Head Exam: NORMAL INSPECTION, NORMOCEPHALIC - Eye Exam Eye Exam: EOMI, Normal appearance. absent: Nystagmus, Scleral icterus - ENT Exam ENT Exam: Mucous Membranes Moist - Respiratory Exam Respiratory Exam: Clear to Ausculation Bilateral, NORMAL BREATHING PATTERN. absent: Rales, Rhonchi, Wheezes - Cardiovascular Exam Cardiovascular Exam: REGULAR RHYTHM, +S1, +S2. absent: Tachycardia - GI/Abdominal Exam GI & Abdominal Exam: Soft, Normal Bowel Sounds. absent: Distended, Firm, Guarding, Tenderness - Neurological Exam Neurological Exam: Alert, Awake, Oriented x3 Neuro motor strength exam: Left Upper Extremity: 0, Right Upper Extremity: 5, Left Lower Extremity: 2, Right Lower Extremity: 5 Additional comments: sensations improved with equal sensation in right and left upper and lower extremity. - Psychiatric Exam Psychiatric exam: Normal Affect, Normal Mood - Skin Skin Exam: Intact, Normal Color Assessment and Plan - Assessment and Plan (Free Text) Assessment: Patient is a 63 yo female from [facility] who presented with sudden onset CHEN and L sided paralysis and paresthesia. She was found to have a large intracranial hemorrhage on CT. She is presently being managed in the ICU. Neurosurgery consulted further recommendations as by neurosurgeon. As per neurosurgeon no surgical intervention at this time. Repeat MRI showed no acute changes from prior study. Aggressive PT/OT required in hospital until patient approved for [place] [facility]. Patient went for angiogram to figure out etiology of bleed. No evidence of AVMs. Plan: Hemorrhagic stroke 05-18-18 CT head: Large intracerebral hematoma measuring approximately 2.1 x 5.4 cm at the right parieto- occipital region extending to the high convexity. Hematoma extends to the right lateral ventricle and occipital horn. Blood is seen with the interhemispheric talx. 05-18-18 CTA head and neck: unremarkable CT Angiograpy of the Brain 05-19-18 CT head: There is no change in the appearance of the intracerebral hematoma seen in the right parietal occipital lobe. Neurology consulted- Dr. Cross- maintain sodium level of 140-145; Keppra 500mg IVPB; Neursurgeon consulted- Dr. Jacobo/Malachi: no acute intervention necessary at this time MRI brain w/ and w/o contrast pending- unchanged from prior studies Echo - EF 64.3; mild AR; mild MR; no vegetation or thrombus noted PT/OT for strength training Cerebral angiogram- no evidence of AVMs Ppx GI ppx- Protonix 40mg po daily DVT ppx- SCDs, no heparin 2/2 bleed Dispo: Family will be arriving from [facility] on Sunday for possible transfer of patient back home to [facility] for continued treatment as patient has no insurance here and will not qualify for outpatient PT. Patient will continue PT with team until discharge. Medical Management discussed with Dr. Penaloza PGY-1 Rox Becker <Noelle Penaloza - Last Filed: 05/29/18 15:13> Objective - Vital Signs/Intake and Output Vital Signs (last 24 hours): Temp Pulse Resp BP Pulse Ox 98.1 F 78 19 127/71 96 05/29/18 06:00 05/29/18 06:00 05/29/18 06:00 05/29/18 06:00 05/29/18 06:00 Intake and Output: 05/29/18 05/29/18 06:59 18:59 Intake Total 300 Output Total 1000 Balance -700 - Medications Medications: Current Medications Acetaminophen (Tylenol 325mg Tab) 650 mg PO Q6H PRN PRN Reason: Pain, moderate (4-7) Last Admin: 05/26/18 23:29 Dose: 650 mg Levetiracetam (Keppra 500mg Ivpb) 500 mg in 100 mls @ 400 mls/hr IVPB 0600,1800 [facility] Last Admin: 05/29/18 05:06 Dose: 400 mls/hr Ondansetron HCl (Zofran Inj) 4 mg IVP Q4H PRN PRN Reason: Nausea/Vomiting Last Admin: 05/18/18 20:09 Dose: 4 mg Pantoprazole Sodium (Protonix Ec Tab) 40 mg PO 0600 [facility] Last Admin: 05/29/18 05:20 Dose: 40 mg Polyethylene Glycol (Miralax) 17 gm PO DAILY [facility] Last Admin: 05/29/18 09:00 Dose: 17 gm - Labs Labs: 05/29/18 06:30 05/29/18 06:30 PT 12.8 SECONDS (9.4-12.5) H 05/18/18 15:15 INR 1.12 05/18/18 15:15 APTT 29.0 Seconds (25.1-36.5) 05/18/18 15:15 Attending/Attestation - Attestation I have personally seen and examined this patient.: Yes I have fully participated in the care of the patient.: Yes I have reviewed all pertinent clinical information, including history, physical exam and plan: Yes Notes (Text): 05/29/18 15:13 Medical record note made by the resident after discussion with my direction and input after the patient was personally seen and examined by me. I have reviewed the chart and agree that the record accurately reflects by personal performance of the history, physical exam, data review, and medical decision-making, in the course for the patient. I have also personally directed the plan of care.
[2018-05-30] MEDS: levETIRAcetam 500mg IVPB 500 MG/100 ML BAG IVPB SCH ×2 (05:39→17:18)
[2018-05-30] MEDS: Pantoprazole 40 mg EC Tab PO SCH (05:40)
[2018-05-30 08:22] VITALS: RESP 20
--- NOTE | 2018-05-30 13:14 | CP.PCM.PN ---
<Rox Becker - Last Filed: 05/30/18 13:11> Subjective - Date & Time of Evaluation Date of Evaluation: 05/30/18 Time of Evaluation: 10:34 - Subjective Subjective: PGY-1 Medicine Progress Note for Dr. Penaloza's service Patient seen and examined at bedside. Patient offers no acute complaints. Patient's daughter was at beside. Situation was explained to daughter with importance on continuing physical therapy to regain movement in left extremities and prevent contractures. Patient denies fevers, chills, cp, sob, n/v, constipation or diarrhea. Objective - Vital Signs/Intake and Output Vital Signs (last 24 hours): Temp Pulse Resp BP Pulse Ox 98 F 60 20 116/64 98 05/30/18 08:21 05/30/18 08:21 05/30/18 08:21 05/30/18 08:21 05/30/18 08:21 - Medications Medications: Current Medications Acetaminophen (Tylenol 325mg Tab) 650 mg PO Q6H PRN PRN Reason: Pain, moderate (4-7) Last Admin: 05/26/18 23:29 Dose: 650 mg Levetiracetam (Keppra 500mg Ivpb) 500 mg in 100 mls @ 400 mls/hr IVPB 0600,1800 [facility] Last Admin: 05/30/18 05:39 Dose: 400 mls/hr Ondansetron HCl (Zofran Inj) 4 mg IVP Q4H PRN PRN Reason: Nausea/Vomiting Last Admin: 05/18/18 20:09 Dose: 4 mg Pantoprazole Sodium (Protonix Ec Tab) 40 mg PO 0600 [facility] Last Admin: 05/30/18 05:40 Dose: 40 mg Polyethylene Glycol (Miralax) 17 gm PO DAILY [facility] Last Admin: 05/29/18 09:00 Dose: 17 gm - Labs Labs: 05/29/18 06:30 05/29/18 06:30 PT 12.8 SECONDS (9.4-12.5) H 05/18/18 15:15 INR 1.12 05/18/18 15:15 APTT 29.0 Seconds (25.1-36.5) 05/18/18 15:15 - Additional Findings Additional findings: - Constitutional Appears: Non-toxic, No Acute Distress - Head Exam Head Exam: NORMAL INSPECTION, NORMOCEPHALIC - Eye Exam Eye Exam: EOMI, Normal appearance. absent: Nystagmus, Scleral icterus - ENT Exam ENT Exam: Mucous Membranes Moist - Respiratory Exam Respiratory Exam: Clear to Ausculation Bilateral, NORMAL BREATHING PATTERN. absent: Rales, Rhonchi, Wheezes - Cardiovascular Exam Cardiovascular Exam: REGULAR RHYTHM, +S1, +S2. absent: Tachycardia - GI/Abdominal Exam GI & Abdominal Exam: Soft, Normal Bowel Sounds. absent: Distended, Firm, Guarding, Tenderness - Neurological Exam Neurological Exam: Alert, Awake, Oriented x3 Neuro motor strength exam: Left Upper Extremity: 0, Right Upper Extremity: 5, Left Lower Extremity: 2, Right Lower Extremity: 5 Additional comments: sensations improved with equal sensation in right and left upper and lower extremity. - Psychiatric Exam Psychiatric exam: Normal Affect, Normal Mood - Skin Skin Exam: Intact, Normal Color Assessment and Plan - Assessment and Plan (Free Text) Assessment: Patient is a 63 yo female from [facility] who presented with sudden onset CHEN and L sided paralysis and paresthesia. She was found to have a large intracranial hemorrhage on CT. She is presently being managed in the ICU. Neurosurgery consulted further recommendations as by neurosurgeon. As per neurosurgeon no surgical intervention at this time. Repeat MRI showed no acute changes from prior study. Aggressive PT/OT required in hospital until patient approved for [facility]. Patient went for angiogram to figure out etiology of bleed. No evidence of AVMs. Plan: Hemorrhagic stroke 05-18-18 CT head: Large intracerebral hematoma measuring approximately 2.1 x 5.4 cm at the right parieto- occipital region extending to the high convexity. Hematoma extends to the right lateral ventricle and occipital horn. Blood is seen with the interhemispheric talx. 05-18-18 CTA head and neck: unremarkable CT Angiograpy of the Brain 05-19-18 CT head: There is no change in the appearance of the intracerebral hematoma seen in the right parietal occipital lobe. Neurology consulted- Dr. Cross- maintain sodium level of 140-145; Keppra 500mg IVPB; Neursurgeon consulted- Dr. Jacobo/Malachi: no acute intervention necessary at this time MRI brain w/ and w/o contrast pending- unchanged from prior studies Echo - EF 64.3; mild AR; mild MR; no vegetation or thrombus noted PT/OT for strength training Cerebral angiogram- no evidence of AVMs Ppx GI ppx- Protonix 40mg po daily DVT ppx- SCDs, no heparin 2/2 bleed Dispo: Daughter was at bedside. Case management spoke with daughter and instru cted patient on how to purchase wheelchair. Will require extensive physical therapy in [facility] upon d/c back home. Medical Management discussed with Dr. Penaloza PGY-1 Rox Eugenio <Noelle Penaloza - Last Filed: 06/01/18 11:36> Objective - Vital Signs/Intake and Output Vital Signs (last 24 hours): Temp Pulse Resp BP Pulse Ox 99 F 68 20 118/62 95 05/31/18 06:00 05/31/18 06:00 05/31/18 06:00 05/31/18 06:00 05/31/18 06:00 - Labs Labs: 05/31/18 08:15 05/31/18 08:15 PT 12.8 SECONDS (9.4-12.5) H 05/18/18 15:15 INR 1.12 05/18/18 15:15 APTT 29.0 Seconds (25.1-36.5) 05/18/18 15:15 Attending/Attestation - Attestation I have personally seen and examined this patient.: Yes I have fully participated in the care of the patient.: Yes I have reviewed all pertinent clinical information, including history, physical exam and plan: Yes Notes (Text): 06/01/18 11:36 Medical record note made by the resident after discussion with my direction and input after the patient was personally seen and examined by me. I have reviewed the chart and agree that the record accurately reflects by personal performance of the history, physical exam, data review, and medical decision-making, in the course for the patient. I have also personally directed the plan of care.
[2018-05-30] MEDS: POLYETHYLENE GLYCOL 3350 17 GM/Dose PACKET PO SCH (17:19)
--- NOTE | 2018-05-31 04:13 | PROCN ---
Copied To: Curtis Torres MD Attending MD: Curtis Torres MD DATE: 05/23/2018 CEREBRAL ANGIOGRAM PREOPERATIVE DIAGNOSIS: Intracranial hemorrhage. POSTOPERATIVE DIAGNOSIS: Intracranial hemorrhage. PROCEDURE: Cerebral angiogram. SURGEON: Curtis Torres MD CONSENT: Informed consent was obtained for the procedure from the patient after discussing risks and benefits of the procedure. After answering all questions and describing the nature of the procedure, she gave the informed consent. A terminal make up operator was used to take consent. ANESTHESIA: Monitored anesthesia care. INTRODUCTION: After the patient was placed under anesthesia, both groins were prepped and draped in the usual sterile fashion. The timeout procedure was documented patient's name, date of , medical record number as well as the procedure to be performed, was confirmed by the entire team. After everyone in the room agreed, the procedure continued. Using sterile Seldinger technique, the right common femoral artery was punctured using a micropuncture system and subsequently dilated to a 5-Kyrgyz sheath which was then introduced into the artery and hooked to a heparinized flush system. Via the sheath, a 5-Kyrgyz Berenstein catheter was introduced over a 0.35 Terumo guidewire into the aorta. The catheter was then double-flushed and hooked up to a separate heparinized flush system. The following vessel was sequentially selected, digital angiographic acquisitions were then obtained. FOLLOWING VESSELS SELECTED: The right common carotid artery was selected, cervical views were obtained. The right internal carotid artery was selected, the intracranial views were obtained. The right external carotid artery was selected, intracranial views were obtained. The right vertebral artery was selected, cervical and intracranial views were obtained. The left common carotid artery was selected, cervical views were obtained. The left internal carotid artery was selected, intracranial views were obtained. The left external carotid artery was selected, intracranial views were obtained. Left vertebral artery was selected, intracranial views were obtained. FINDINGS: Injection of the right common carotid artery demonstrates normal appearance of the common carotid artery. There is no significant stenosis. There is normal visualization of the right common carotid artery and its branches. Injection of the right internal carotid artery with intracranial views demonstrates no evidence of AVM or vascular malformation. There is normal arterial transit time. No significant abnormalities are noted. The venous system was is unremarkable. Injection of the right external carotid artery with head and neck views demonstrates normal appearance of the external carotid artery and its branches. There is no evidence for dural arteriovenous fistula. Injection of the right vertebral artery with cervical and intracranial view demonstrates normal appearance of the intracranial and vertebral artery. No evidence of aneurysm or vascular malformation. Injection of the left common carotid artery with cervical views demonstrates normal appearance of the left common carotid artery and its branches. No significant arterial stenosis is noted. Injection of the left internal carotid artery with intracranial views demonstrates normal appearance of the intracranial vasculature, no evidence of aneurysm. No evidence of arteriovenous malformation. There is no significant arteriovenous shunting. The visualization is otherwise unremarkable. Injection of the left external carotid artery with intracranial views demonstrates normal appearance without evidence for dural arteriovenous shunt. Injection of the left vertebral artery with intracranial views demonstrates normal appearance of the intracranial vertebral artery. No significant abnormalities noted. The catheters were then removed. Pressure was held on the right common femoral artery until hemostasis was obtained. The patient tolerated the procedure well. IMPRESSION: Six vessel cerebral angiogram demonstrates no evidence for arteriovenous malformation. The underlying cause of the hemorrhage is not identified on this angiogram. If you have any questions, please do not hesitate to call me [phone]. Curtis Torres MD
[2018-05-31] MEDS: Pantoprazole 40 mg EC Tab PO SCH (06:31)
[2018-05-31] MEDS: levETIRAcetam 500mg IVPB 500 MG/100 ML BAG IVPB SCH (06:32)
[2018-05-31 08:40] LABS: BASO # 0.04 K/mm3 (0.0-2.0); BASO % 0.5 % (0.0-3.0); EOS # 0.1 (0.0-0.7); GRAN # 5.23 (1.4-6.5); GRAN % 64.6 % (50.0-68.0); HEMOGLOBIN 13.4 g/dL (12.0-16.0); LYMPH # 2.1 (1.2-3.4); LYMPH % 25.6 % (22.0-35.0); MEAN CORPUSCULAR HGB CONC 34.5 g/dl (31.0-37.0); MONO # 0.7 (0.1-0.6); MONO % 8.3 % (1.0-6.0); RBC 4.46 10^6/uL (3.5-6.1); RED CELL DISTRIBUTION WIDTH 12.6 % (11.5-14.5); WHITE BLOOD COUNT 8.1 10^3/ul (4.5-11.0)
[2018-05-31 08:45] VITALS: BP 118/62; PULSE 68; TEMP 99; O2SAT 95
[2018-05-31 08:47] LABS: ALBUMIN 4.2 g/dL (3.0-4.8); ALT/SGPT 33 U/L (7-56); AST/SGOT 37 U/L (14-36); BLOOD UREA NITROGEN 13 mg/dL (7-21); CALCIUM 9.5 mg/dL (8.4-10.5); GFR NON-AFRICAN AMERICAN > 60
[2018-05-31] MEDS: POLYETHYLENE GLYCOL 3350 17 GM/Dose PACKET PO SCH (10:05)
--- NOTE | 2018-05-31 14:40 | CP.PCM.DIS ---
<Rox Becker - Last Filed: 05/31/18 14:36> Provider - Provider Date of Admission: 05/18/18 16:48 Attending physician: Noelle Penaloza MD Primary care physician: NO FAMILY PROVIDER Consults: Dr. Tay Ly Time Spent in preparation of Discharge (in minutes): 45 Hospital Course - Lab Results Lab Results: Micro Results 05/18/18 19:00 Naris MRSA Culture (Admit) - Final MRSA NOT DETECTED Most Recent Lab Values WBC 8.1 10^3/ul (4.5-11.0) 05/31/18 08:15 RBC 4.46 10^6/uL (3.5-6.1) 05/31/18 08:15 Hgb 13.4 g/dL (12.0-16.0) 05/31/18 08:15 Hct 38.8 % (36.0-48.0) 05/31/18 08:15 MCV 87.0 fl (80.0-105.0) 05/31/18 08:15 MCH 30.0 pg (25.0-35.0) 05/31/18 08:15 MCHC 34.5 g/dl (31.0-37.0) 05/31/18 08:15 RDW 12.6 % (11.5-14.5) 05/31/18 08:15 Plt Count 464 10^3/uL (120.0-450.0) H 05/31/18 08:15 MPV 10.0 fl (7.0-11.0) 05/31/18 08:15 Gran % 64.6 % (50.0-68.0) 05/31/18 08:15 Lymph % (Auto) 25.6 % (22.0-35.0) 05/31/18 08:15 Sac % (Auto) 8.3 % (1.0-6.0) H 05/31/18 08:15 Eos % (Auto) 1.0 % (1.5-5.0) L 05/31/18 08:15 Baso % (Auto) 0.5 % (0.0-3.0) 05/31/18 08:15 Gran # 5.23 (1.4-6.5) 05/31/18 08:15 Lymph # (Auto) 2.1 (1.2-3.4) 05/31/18 08:15 Sac # (Auto) 0.7 (0.1-0.6) H 05/31/18 08:15 Eos # (Auto) 0.1 (0.0-0.7) 05/31/18 08:15 Baso # (Auto) 0.04 K/mm3 (0.0-2.0) 05/31/18 08:15 PT 12.8 SECONDS (9.4-12.5) H 05/18/18 15:15 INR 1.12 05/18/18 15:15 APTT 29.0 Seconds (25.1-36.5) 05/18/18 15:15 Sodium 135 mmol/L (132-148) 05/31/18 08:15 Potassium 4.1 mmol/L (3.6-5.0) 05/31/18 08:15 Chloride 99 mmol/L (98-107) 05/31/18 08:15 Carbon Dioxide 24 mmol/L (21-33) 05/31/18 08:15 Anion Gap 15 (10-20) 05/31/18 08:15 BUN 13 mg/dL (7-21) 05/31/18 08:15 Creatinine 0.5 mg/dl (0.7-1.2) L 05/31/18 08:15 Est GFR ( Amer) > 60 05/31/18 08:15 Est GFR (Non-Af Amer) > 60 05/31/18 08:15 POC Glucose (mg/dL) 108 mg/dL (65-110) 05/31/18 11:33 Random Glucose 106 mg/dL (70-110) 05/31/18 08:15 Hemoglobin A1c 5.8 % (4.2-6.5) 05/18/18 15:15 Serum Osmolality 296 mosm/kg (272-300) 05/19/18 06:35 Calcium 9.5 mg/dL (8.4-10.5) 05/31/18 08:15 Phosphorus 3.6 mg/dL (2.5-4.5) 05/20/18 04:08 Magnesium 2.2 mg/dL (1.7-2.2) 05/20/18 04:08 Total Bilirubin 0.3 mg/dL (0.2-1.3) 05/31/18 08:15 AST 37 U/L (14-36) H 05/31/18 08:15 ALT 33 U/L (7-56) 05/31/18 08:15 Alkaline Phosphatase 147 U/L (38-126) H 05/31/18 08:15 Troponin I < 0.01 ng/mL 05/18/18 15:15 Total Protein 8.3 g/dL (5.8-8.3) 05/31/18 08:15 Albumin 4.2 g/dL (3.0-4.8) 05/31/18 08:15 Globulin 4.0 gm/dL 05/31/18 08:15 Albumin/Globulin Ratio 1.0 (1.1-1.8) L 05/31/18 08:15 Triglycerides 84 mg/dL (35-160) 05/18/18 15:15 Cholesterol 191 mg/dL (130-200) 05/18/18 15:15 LDL Cholesterol Direct 89 mg/dL (0-129) 05/18/18 15:15 HDL Cholesterol 62 mg/dL (29-60) H 05/18/18 15:15 Blood Type A POSITIVE 05/18/18 15:15 Blood Type Confirm A POSITIVE 05/18/18 23:30 Antibody Screen Negative 05/18/18 15:15 BBK History Checked No verified bt 05/18/18 15:15 - Hospital Course Hospital Course: Upon admission Patient is a 63 yo female visiting from [facility] with a PMH of only varicose veins who presented to the ED with inability to move or feel her L arm and leg. Patient states that she attempted to stand up around 1PM this afternoon when she all of a sudden felt a shock-like headache and L-sided weakness causing her to fall. She denies LOC or head trauma- she was able to brace herself with her right arm. Patient states that she took Tylenol for the headache prior to coming to the ED, and now her pain is resolved. Patient is still unable to move or feel her L arm or leg. Additionally, she is complaining of intermittent involuntary movements of her R leg and arm. Patient states that she see her primary care doctor regularly in [facility]. She denies history of CHEN, stroke, or seizure. She presently denies any pain, fevers, chills, SOB, bowel/bladder incontinence. Hospital Course: 63 year old female admitted for sudden onset CHEN and left sided paralysis and paresthesia. CT head showed large intracerebral hematoma measuring approximately 2.1 x 5.4 cm at the right parieto- occipital region extending to the high convexity; hematoma extends to the right lateral ventricle and occipital horn; blood is seen with the interhemispheric talx. Patient was admitted to the ICU and neurology was consulted. Neurosurgery, Dr. Jacobo, consulted and no surgical intervention recommended. Neurology, Dr. Cross, recommended maintaining sodium level of 140-145 and Keppra. CTA of the head and neck resulted unremarkable. Repeat CT head resulted no change in the appearance of the appearance of the intracerebral hematoma in the right parietal occipital lobe. MRI resulted large acute hemorrhage in the right parietal lobe measuring 65mmAP x30mm height x 27mm wide; composed of a mixture of acute and subacute blood products, hemorrhage along the falx, mild amount of surrounding vasogenic edema but unchanged from prior studies. Cerebral angiogram resulted no evidence of AVM. Echo resulted EF 64.3; mild AR; mild MR; no vegetation or thrombus noted. Pt received PT/OT throughout admission. Patient was trained on how to use wheelchair with assistance from PT. PT cleared patient to be discharged home to [facility] with wheelchair. Patient and daughter were educated on home exercise program, safe transfers, safe ambulation/standing, and fall prevention. Patient medically stable to be discharged. She was not approved for [facility] for continue management care as outpatient, and will be flying back to [facility] where she will follow up with PT and neurology. She will need repeat MRI within 2 weeks for continued management. Discharge plan Patient is stable for discharge to home as per Dr. Penaloza. She was counseled to return to the emergency department if symptoms return or worsen. Patient is to follow up with primary medical doctor in [facility] when she returns to [facility]. Patient is to follow up with neurology and physical therapy once she arrives back to [facility]. Patient is to continue outpatient PT/OT. Patient will be discharged with a month supply of keppra and will need re-cate. Patient understands and agrees with discharge plan. Patient will need Discharge Exam - Head Exam Head Exam: ATRAUMATIC, NORMAL INSPECTION, NORMOCEPHALIC - Eye Exam Eye Exam: EOMI, Normal appearance - ENT Exam ENT Exam: Mucous Membranes Moist - Respiratory Exam Respiratory Exam: NORMAL BREATHING PATTERN. absent: Rales, Rhonchi, Wheezes, Respiratory Distress - Cardiovascular Exam Cardiovascular Exam: REGULAR RHYTHM, +S1, +S2 - GI/Abdominal Exam GI & Abdominal Exam: Normal Bowel Sounds, Soft. absent: Distended, Firm, Guarding, Tenderness - Neurological Exam Neurological exam: Alert, Oriented x3 Additional comments: Left upper extremity 0/5 muscle strength Left lower extremity 2/5 muscle strength - Psychiatric Exam Psychiatric exam: Normal Affect, Normal Mood - Skin Skin Exam: Intact, Normal Color Discharge Plan - Discharge Medications Prescriptions: levETIRAcetam [Keppra] 500 mg PO BID #60 tab - Follow Up Plan Condition: CRITICAL Disposition: HOME/ ROUTINE Instructions: Stroke (DC), Intracerebral Hemorrhage (DC), Stroke Rehab Exercises Additional Instructions: 1. Patient is stable for discharge to home as per Dr. Penaloza 2. Patient will require further followup [place] with a neurologist and physical therapist. Patient is educated that it is necessary she continue physical therapy to maximize potential to gain left sided extremity functionality. Patient will need an MRI within two weeks from today in [facility] to monitor bleed in brain. 3. Patient is to continue Keppra 500mg by mouth twice a day at least for 6 months until re-evaluation with neurologist says otherwise. 4. Patient will need wheelchair for transferring. Patient has no insurance so family must pay for the wheelchair. 5. Patient is educated to return to hospital if symptoms worsen or recur. 6. Patient understands the plan as above and agrees. Patient can be discharged once medications and wheelchair at beside. Referrals: FAMILY PROVIDER,NO [Primary Care Provider] - <Noelle Penaloza - Last Filed: 06/01/18 11:35> Provider - Provider Date of Admission: 05/18/18 16:48 Attending physician: Noelle Penaloza MD Primary care physician: NORMA FAMILY PROVIDER Hospital Course - Lab Results Lab Results: Micro Results 05/18/18 19:00 Naris MRSA Culture (Admit) - Final MRSA NOT DETECTED Most Recent Lab Values WBC 8.1 10^3/ul (4.5-11.0) 05/31/18 08:15 RBC 4.46 10^6/uL (3.5-6.1) 05/31/18 08:15 Hgb 13.4 g/dL (12.0-16.0) 05/31/18 08:15 Hct 38.8 % (36.0-48.0) 05/31/18 08:15 MCV 87.0 fl (80.0-105.0) 05/31/18 08:15 MCH 30.0 pg (25.0-35.0) 05/31/18 08:15 MCHC 34.5 g/dl (31.0-37.0) 05/31/18 08:15 RDW 12.6 % (11.5-14.5) 05/31/18 08:15 Plt Count 464 10^3/uL (120.0-450.0) H 05/31/18 08:15 MPV 10.0 fl (7.0-11.0) 05/31/18 08:15 Gran % 64.6 % (50.0-68.0) 05/31/18 08:15 Lymph % (Auto) 25.6 % (22.0-35.0) 05/31/18 08:15 Sac % (Auto) 8.3 % (1.0-6.0) H 05/31/18 08:15 Eos % (Auto) 1.0 % (1.5-5.0) L 05/31/18 08:15 Baso % (Auto) 0.5 % (0.0-3.0) 05/31/18 08:15 Gran # 5.23 (1.4-6.5) 05/31/18 08:15 Lymph # (Auto) 2.1 (1.2-3.4) 05/31/18 08:15 Sac # (Auto) 0.7 (0.1-0.6) H 05/31/18 08:15 Eos # (Auto) 0.1 (0.0-0.7) 05/31/18 08:15 Baso # (Auto) 0.04 K/mm3 (0.0-2.0) 05/31/18 08:15 PT 12.8 SECONDS (9.4-12.5) H 05/18/18 15:15 INR 1.12 05/18/18 15:15 APTT 29.0 Seconds (25.1-36.5) 05/18/18 15:15 Sodium 135 mmol/L (132-148) 05/31/18 08:15 Potassium 4.1 mmol/L (3.6-5.0) 05/31/18 08:15 Chloride 99 mmol/L (98-107) 05/31/18 08:15 Carbon Dioxide 24 mmol/L (21-33) 05/31/18 08:15 Anion Gap 15 (10-20) 05/31/18 08:15 BUN 13 mg/dL (7-21) 05/31/18 08:15 Creatinine 0.5 mg/dl (0.7-1.2) L 05/31/18 08:15 Est GFR ( Amer) > 60 05/31/18 08:15 Est GFR (Non-Af Amer) > 60 05/31/18 08:15 POC Glucose (mg/dL) 108 mg/dL (65-110) 05/31/18 11:33 Random Glucose 106 mg/dL (70-110) 05/31/18 08:15 Hemoglobin A1c 5.8 % (4.2-6.5) 05/18/18 15:15 Serum Osmolality 296 mosm/kg (272-300) 05/19/18 06:35 Calcium 9.5 mg/dL (8.4-10.5) 05/31/18 08:15 Phosphorus 3.6 mg/dL (2.5-4.5) 05/20/18 04:08 Magnesium 2.2 mg/dL (1.7-2.2) 05/20/18 04:08 Total Bilirubin 0.3 mg/dL (0.2-1.3) 05/31/18 08:15 AST 37 U/L (14-36) H 05/31/18 08:15 ALT 33 U/L (7-56) 05/31/18 08:15 Alkaline Phosphatase 147 U/L (38-126) H 05/31/18 08:15 Troponin I < 0.01 ng/mL 05/18/18 15:15 Total Protein 8.3 g/dL (5.8-8.3) 05/31/18 08:15 Albumin 4.2 g/dL (3.0-4.8) 05/31/18 08:15 Globulin 4.0 gm/dL 05/31/18 08:15 Albumin/Globulin Ratio 1.0 (1.1-1.8) L 05/31/18 08:15 Triglycerides 84 mg/dL (35-160) 05/18/18 15:15 Cholesterol 191 mg/dL (130-200) 05/18/18 15:15 LDL Cholesterol Direct 89 mg/dL (0-129) 05/18/18 15:15 HDL Cholesterol 62 mg/dL (29-60) H 05/18/18 15:15 Blood Type A POSITIVE 05/18/18 15:15 Blood Type Confirm A POSITIVE 05/18/18 23:30 Antibody Screen Negative 05/18/18 15:15 BBK History Checked No verified bt 05/18/18 15:15 Attending/Attestation - Attestation I have personally seen and examined this patient.: Yes I have fully participated in the care of the patient.: Yes I have reviewed all pertinent clinical information, including history, physical exam and plan: Yes Notes (Text): 06/01/18 11:33 Medical record note made by the resident after discussion with my direction and input after the patient was personally seen and examined by me. I have reviewed the chart and agree that the record accurately reflects by personal performance of the history, physical exam, data review, and medical decision-making, in the course for the patient. I have also personally directed the plan of care. 63 year old female from [facility] who presented with left sided weakness, was found to have large intracranial hemorrhage on CT scan of head Repeat CT head and MRI study showed no acute changes. Cerebral angiogram was done last week which was negative. She was seen by neurosurgery and no acute surgical intervention was recommended. She was seen by neurology and started on keppra. Patient is having left sided hemiplegia, need physical therapy and rehabilitation.Her daughter is taking her back to her [place] country.The issue was discussed in detail with patient and daughter. Patient will need repeat MRI of Brain in 2 weeks. Management plan was discussed in detail with patient. Education was provided.
== END 2018-05-31 18:27 | disposition home or self-care (01) | DRG 64 ==
LOC: ED 14:58 → ERH 16:48 → ICU 18:36 → 3RNO 05-20 18:54 → 2RSO 05-23 19:12 → 3RNO 05-23 21:38
PROVIDERS: ADMIT Internal Medicine; ATTEND Internal Medicine
PROC: B31R1ZZ Fluoroscopy of Intracranial Arteries using Low Osmolar Contrast (ICD-10-PCS; 2018-05-23)
PROC: B31 Imaging, Upper Arteries, Fluoroscopy (ICD-10-PCS; principal; 2018-05-30)
DX: I61.1 Nontraumatic intracerebral hemorrhage in hemisphere, cortical (principal); G93.6 Cerebral edema; G81.94 Hemiplegia, unspecified affecting left nondominant side; E86.0 Dehydration; I10 Essential (primary) hypertension; K59.00 Constipation, unspecified; Z82.3 Family history of stroke; Z82.49 Family history of ischemic heart disease and other diseases of the circulatory system; R40.2413 Glasgow coma scale score 13-15, at hospital admission